=== PATIENT | male | born 1945 | race Caucasian/White ===

== ENCOUNTER 2020-04-08 08:03 | Outpatient (REF) | payer MEDICARE, SELFPAY ==
[2020-04-08 08:49] LABS: MANUAL DIFF FLAG NO
[2020-04-08 08:55] LABS: Basophils Percent Auto 0.4 % (0-2); Eosinophils Absolute Auto 0.3 X10*3/uL (0.0-0.4); Eosinophils Percent Auto 4.3 % (0-4); Hematocrit 43.8 % (42-52); Hemoglobin 14.5 g/dl (14.0-18.0); Imm Gran Abs Auto 0.02 X10*3/uL (0.00-0.03); Imm Gran Pct Auto 0.3 % (0.0-0.4); Lymphocytes Absolute Auto 1.8 X10*3/uL (1.2-4.9); Lymphocytes Percent Auto 24.8 % (20-40); Mean Corpuscular HGB Conc 33.1 g/dl (31.0-36.0); Mean Corpuscular Hemoglobin 31.2 pg (27.0-33.0); Mean Corpuscular Volume 94.2 fL (80-98); Mean Platelet Volume 10.4 fL (9.4-12.4); Monocytes Absolute Auto 0.5 X10*3/uL (0.1-1.2); Neutrophils Absolute Auto 4.6 X10*3/uL (2.0-8.3); Neutrophils Percent Auto 63.2 % (45-73); Platelet Count 198 X10*3/uL (160-400); Red Blood Count 4.65 X10*6/uL (4.60-5.80); Red Cell Distribution Width 13.9 % (11.0-16.0); White Blood Count 7.3 X10*3/uL (4.8-10.8)
[2020-04-08 09:26] LABS: Alanine Aminotransferase 37 U/L (0-40); Alkaline Phosphatase 63 U/L (39-117); Anion Gap 14 (12-20); Aspartate Amino Transferase 24 U/L (5-37); Bilirubin Total 1.2 mg/dL (0.0-1.0); Blood Urea Nitrogen 16 mg/dL (9-16); Calcium 8.5 mg/dL (8.4-10.2); Carbon Dioxide 21 mmol/L (22-29); Chloride 107 mmol/L (96-108); Cholesterol 119 mg/dL; Estimated Glomerular Filt Rate > 60; Glucose Fasting 96 mg/dL (60-99); HDL Cholesterol 44 mg/dL; LDL Cholesterol Calculated 57 mg/dl; Potassium 4.8 mmol/l (3.3-5.1); Sodium 137 mmol/L (135-145); Total Protein 7.1 g/dL (6.5-8.0); Triglycerides 91 mg/dL
[2020-04-08 09:40] LABS: TSH reflex Free T4 1.55 mIU/mL (0.32-4.0); Vitamin D 25-OH Total 32.6 ng/mL (>30)
[2020-04-08 10:04] LABS: Glucose Urine UA NEG (NEG); Leukocyte Esterase Urine NEG (NEG); Nitrite Urine NEG (NEG); Urine Blood TRACE (NEG); Urine Ketones NEG (NEG); Urine Protein NEG (NEG-TRACE)
[2020-04-08 10:06] LABS: Appearance Urine CLEAR; Color Urine YELLOW
[2020-04-08 10:18] LABS: RBC Urine 0-2 /HPF (0); WBC Urine 0 /HPF (0-4)
== END 2020-04-08 08:04 | disposition home or self-care (01) ==
LOC: HO.LAB 08:03
PROVIDERS: Visit Provider Internal Medicine
DX: E78.5 Hyperlipidemia, unspecified (principal); I10 Essential (primary) hypertension; I25.10 Atherosclerotic heart disease of native coronary artery without angina pectoris; N40.0 Benign prostatic hyperplasia without lower urinary tract symptoms; G47.33 Obstructive sleep apnea (adult) (pediatric); E55.9 Vitamin D deficiency, unspecified; E66.3 Overweight
CPT/HCPCS: 36415; 80053; 80061; 81001; 81003; 82306; 84153; 84443; 85025

== ENCOUNTER → 2020-06-12 10:15 | Outpatient (BNVA) | payer MEDICARE, SELFPAY | PROVIDERS: PCP Internal Medicine; Visit Provider Urology | DX: N40.1 Benign prostatic hyperplasia with lower urinary tract symptoms (principal); R39.15 Urgency of urination; R39.12 Poor urinary stream | CPT/HCPCS: 81002; 99202 ==

== ENCOUNTER 2020-06-26 10:48 | Outpatient (REF) | payer MEDICARE, SELFPAY ==
--- NOTE | 2020-06-26 10:55 | US_ITS ---
EXAMINATION: US PELVIS LIMITED (BLADDER) CLINICAL INFORMATION: Poor urinary stream. History of BPH. COMPARISON: None TECHNIQUE: Real-time imaging of the bladder. FINDINGS: The urinary bladder is distended to an estimated volume of 142 mL. No evidence of bladder diverticulum, mass or calculus. After voiding, small residual of 8 mL is present. Both ureteral jets are visualized. There appears to be borderline thickening of the bladder wall, with slightly trabeculated appearance of the bladder wall. The prostate gland is not optimally visualized. The prostate gland measurements might be inaccurate. The prostate gland has an estimated size of 3.5 x 3 x 4 cm. No pelvic free fluid. US/US bladder IMPRESSION: No significant postvoid bladder residual. After voiding, a small residual of 8 mL is identified. No bladder calculi.
== END 2020-06-26 10:49 | disposition home or self-care (01) ==
LOC: HO.US 10:48
PROVIDERS: Visit Provider Urology
DX: R39.12 Poor urinary stream (principal); N40.1 Benign prostatic hyperplasia with lower urinary tract symptoms
CPT/HCPCS: 76857

== ENCOUNTER → 2020-07-10 09:18 | Outpatient (BNVA) | payer MEDICARE, SELFPAY | PROVIDERS: Visit Provider Urology | DX: Z13.89 Encounter for screening for other disorder (principal) | CPT/HCPCS: Q3014 ==

== ENCOUNTER 2020-08-06 07:53 | Outpatient (REF) | payer MEDICARE, SELFPAY ==
[2020-08-06 08:51] LABS: MANUAL DIFF FLAG NO
[2020-08-06 08:55] LABS: Glucose Urine UA NEG (NEG); Leukocyte Esterase Urine NEG (NEG); Nitrite Urine NEG (NEG); Specific Gravity - Urine >= 1.030 (1.005-1.025); Urine Blood NEG (NEG); Urine Ketones NEG (NEG); Urine Protein NEG (NEG-TRACE)
[2020-08-06 08:55] LABS: Basophils Percent Auto 0.3 % (0-2); Eosinophils Absolute Auto 0.3 X10*3/uL (0.0-0.4); Hematocrit 41.1 % (42-52); Hemoglobin 13.6 g/dl (14.0-18.0); Imm Gran Abs Auto 0.02 X10*3/uL (0.00-0.03); Imm Gran Pct Auto 0.3 % (0.0-0.4); Lymphocytes Absolute Auto 1.4 X10*3/uL (1.2-4.9); Lymphocytes Percent Auto 21.7 % (20-40); Mean Corpuscular HGB Conc 33.1 g/dl (31.0-36.0); Mean Corpuscular Volume 93.6 fL (80-98); Mean Platelet Volume 10.1 fL (9.4-12.4); Monocytes Absolute Auto 0.6 X10*3/uL (0.1-1.2); Monocytes Percent Auto 8.5 % (2-11); Neutrophils Absolute Auto 4.2 X10*3/uL (2.0-8.3); Neutrophils Percent Auto 64.2 % (45-73); Platelet Count 184 X10*3/uL (160-400); Red Blood Count 4.39 X10*6/uL (4.60-5.80); Red Cell Distribution Width 14.5 % (11.0-16.0); White Blood Count 6.5 X10*3/uL (4.8-10.8)
[2020-08-06 08:57] LABS: Appearance Urine CLEAR; Color Urine YELLOW
[2020-08-06 09:26] LABS: Alanine Aminotransferase 38 U/L (0-40); Alkaline Phosphatase 67 U/L (39-117); Anion Gap 12 (12-20); Aspartate Amino Transferase 24 U/L (5-37); Bilirubin Total 1.2 mg/dL (0.0-1.0); Blood Urea Nitrogen 24 mg/dL (9-16); Calcium 8.7 mg/dL (8.4-10.2); Carbon Dioxide 22 mmol/L (22-29); Chloride 110 mmol/L (96-108); Cholesterol 108 mg/dL; Estimated Glomerular Filt Rate > 60; Glucose Fasting 111 mg/dL (60-99); HDL Cholesterol 46 mg/dL; LDL Cholesterol Calculated 51 mg/dl; Potassium 4.3 mmol/L (3.3-5.1); Sodium 140 mmol/L (135-145); Total Protein 6.4 g/dL (6.5-8.0); Triglycerides 55 mg/dL
[2020-08-06 09:50] LABS: Prostate Specific Antigen 1.34 ng/mL (<0.05-4.0); TSH reflex Free T4 1.19 uIU/mL (0.32-4.0); Vitamin D 25-OH Total 32.8 ng/mL (>30)
== END 2020-08-06 07:54 | disposition home or self-care (01) ==
LOC: HO.LAB 07:53
PROVIDERS: PCP Internal Medicine; Visit Provider Internal Medicine
DX: E78.00 Pure hypercholesterolemia, unspecified (principal); N40.1 Benign prostatic hyperplasia with lower urinary tract symptoms; I10 Essential (primary) hypertension; E66.3 Overweight; I25.10 Atherosclerotic heart disease of native coronary artery without angina pectoris; E55.9 Vitamin D deficiency, unspecified
CPT/HCPCS: 36415; 80053; 80061; 81003; 82306; 84153; 84443; 85025

== ENCOUNTER → 2020-10-08 08:53 | Outpatient (BNVA) | payer MEDICARE, SELFPAY | PROVIDERS: PCP Internal Medicine; Visit Provider Urology | DX: N40.1 Benign prostatic hyperplasia with lower urinary tract symptoms (principal); R39.15 Urgency of urination; R39.12 Poor urinary stream | CPT/HCPCS: 51798; 81002; 99212 ==

== ENCOUNTER 2021-04-02 08:27 | Outpatient (REF) | payer MEDICARE, SELFPAY ==
[2021-04-02 08:48] LABS: MANUAL DIFF FLAG NO
[2021-04-02 08:59] LABS: Basophils Percent Auto 0.5 % (0-2); Eosinophils Absolute Auto 0.2 X10*3/uL (0.0-0.4); Hematocrit 42.7 % (42.0-52.0); Hemoglobin 14.3 g/dl (14.0-18.0); Imm Gran Abs Auto 0.04 X10*3/uL (0.00-0.03); Imm Gran Pct Auto 0.5 % (0.0-0.4); Lymphocytes Absolute Auto 1.7 X10*3/uL (1.2-4.9); Mean Corpuscular HGB Conc 33.5 g/dl (31.0-36.0); Mean Corpuscular Hemoglobin 31.2 pg (27.0-33.0); Mean Corpuscular Volume 93.2 fL (80.0-98.0); Mean Platelet Volume 9.7 fL (9.4-12.4); Monocytes Absolute Auto 0.6 X10*3/uL (0.1-1.2); Neutrophils Absolute Auto 5.33 x10*3/uL (2.0-8.3); Platelet Count 231 X10*3/uL (160-400); Red Blood Count 4.58 X10*6/uL (4.60-5.80); Red Cell Distribution Width 14.1 % (11.0-16.0)
[2021-04-02 09:29] LABS: Alanine Aminotransferase 38 U/L (0-40); Albumin Level 4.2 g/dL (3.5-5.0); Alkaline Phosphatase 66 U/L (39-117); Anion Gap 11 (12-20); Aspartate Amino Transferase 24 U/L (5-37); Bilirubin Total 0.9 mg/dL (0.0-1.0); Blood Urea Nitrogen 17 mg/dL (9-16); Carbon Dioxide 23 mmol/L (22-29); Chloride 108 mmol/L (96-108); Cholesterol 119 mg/dL; Estimated Glomerular Filt Rate > 60; Glucose Fasting 107 mg/dL (60-99); HDL Cholesterol 41 mg/dL; LDL Cholesterol Calculated 68 mg/dl; Potassium 4.4 mmol/L (3.3-5.1); Sodium 138 mmol/L (135-145); Total Protein 6.8 g/dL (6.5-8.0); Triglycerides 54 mg/dL
[2021-04-02 10:13] LABS: Appearance Urine CLEAR; Color Urine YELLOW; Glucose Urine UA NEG (NEG); Leukocyte Esterase Urine NEG (NEG); Nitrite Urine NEG (NEG); Urine Blood NEG (NEG); Urine Ketones NEG (NEG); Urine Protein NEG (NEG-TRACE)
== END 2021-04-02 08:28 | disposition home or self-care (01) ==
LOC: HO.LAB 08:27
PROVIDERS: PCP Internal Medicine; Visit Provider Internal Medicine
DX: N40.1 Benign prostatic hyperplasia with lower urinary tract symptoms (principal); E78.00 Pure hypercholesterolemia, unspecified; I25.10 Atherosclerotic heart disease of native coronary artery without angina pectoris; E66.3 Overweight; E55.9 Vitamin D deficiency, unspecified; I10 Essential (primary) hypertension
CPT/HCPCS: 36415; 80053; 80061; 81003; 82306; 84443; 85025

== ENCOUNTER 2021-11-19 09:33 | Outpatient (REF) | payer MEDICARE, SELFPAY ==
[2021-11-19 09:55] LABS: MANUAL DIFF FLAG NO
[2021-11-19 10:16] LABS: Basophils Percent Auto 0.5 % (0-2); Eosinophils Absolute Auto 0.1 X10*3/uL (0.0-0.4); Eosinophils Percent Auto 1.3 % (0-4); Hematocrit 40.6 % (42.0-52.0); Hemoglobin 13.7 g/dl (14.0-18.0); Imm Gran Abs Auto 0.05 X10*3/uL (0.00-0.03); Imm Gran Pct Auto 0.6 % (0.0-0.4); Lymphocytes Absolute Auto 1.7 X10*3/uL (1.2-4.9); Mean Corpuscular HGB Conc 33.7 g/dl (31.0-36.0); Mean Corpuscular Hemoglobin 31.6 pg (27.0-33.0); Mean Corpuscular Volume 93.5 fL (80.0-98.0); Mean Platelet Volume 9.7 fL (9.4-12.4); Monocytes Absolute Auto 0.9 X10*3/uL (0.1-1.2); Monocytes Percent Auto 11.5 % (2-11); Neutrophils Absolute Auto 5.2 x10*3/uL (2.0-8.3); Neutrophils Percent Auto 65.1 % (45-73); Platelet Count 230 X10*3/uL (160-400); Red Blood Count 4.34 X10*6/uL (4.60-5.80); Red Cell Distribution Width 15.3 % (11.0-16.0); White Blood Count 7.9 X10*3/uL (4.8-10.8)
[2021-11-19 10:50] LABS: Alanine Aminotransferase 52 U/L (0-40); Albumin Level 4.2 g/dL (3.5-5.0); Alkaline Phosphatase 73 U/L (39-117); Anion Gap 13 (12-20); Aspartate Amino Transferase 32 U/L (5-37); Bilirubin Total 0.9 mg/dL (0.0-1.0); Blood Urea Nitrogen 28 mg/dL (9-16); Calcium 9.1 mg/dL (8.4-10.2); Carbon Dioxide 21 mmol/L (22-29); Chloride 107 mmol/L (96-108); Cholesterol 137 mg/dL; Estimated Glomerular Filt Rate > 60; Glucose Fasting 108 mg/dL (60-99); HDL Cholesterol 54 mg/dL; LDL Cholesterol Calculated 72 mg/dl; Potassium 4.5 mmol/L (3.3-5.1); Sodium 136 mmol/L (135-145); Total Protein 6.7 g/dL (6.5-8.0); Triglycerides 56 mg/dL
[2021-11-19 10:51] LABS: Appearance Urine CLEAR; Color Urine STRAW; Glucose Urine UA NEG (NEG); Leukocyte Esterase Urine NEG (NEG); Nitrite Urine NEG (NEG); UACC Culture Trigger NO; Urine Blood TRACE (NEG); Urine Ketones NEG (NEG); Urine Protein NEG (NEG-TRACE)
[2021-11-19 11:09] LABS: RBC Urine 0-2 /HPF (0); WBC Urine 0 /HPF (0-4)
[2021-11-19 11:16] LABS: TSH reflex Free T4 1.69 uIU/mL (0.32-4.0); Vitamin D 25-OH Total 35.1 ng/mL (>30)
== END 2021-11-19 09:34 | disposition home or self-care (01) ==
LOC: HO.LAB 09:33
PROVIDERS: PCP Internal Medicine; Visit Provider Internal Medicine
DX: E78.00 Pure hypercholesterolemia, unspecified (principal); I10 Essential (primary) hypertension; E55.9 Vitamin D deficiency, unspecified
CPT/HCPCS: 36415; 80053; 80061; 81001; 82306; 84443; 85025

== ENCOUNTER 2022-04-14 07:34 | Outpatient (REF) | payer MEDICARE, SELFPAY ==
[2022-04-14 07:53] LABS: MANUAL DIFF FLAG NO
[2022-04-14 08:19] LABS: Basophils Percent Auto 0.4 % (0-2); Eosinophils Absolute Auto 0.1 X10*3/uL (0.0-0.4); Eosinophils Percent Auto 1.6 % (0-4); Hematocrit 44.2 % (42.0-52.0); Hemoglobin 14.8 g/dl (14.0-18.0); Imm Gran Abs Auto 0.02 X10*3/uL (0.00-0.03); Imm Gran Pct Auto 0.2 % (0.0-0.4); Lymphocytes Absolute Auto 1.9 X10*3/uL (1.2-4.9); Lymphocytes Percent Auto 24.1 % (20-40); Mean Corpuscular HGB Conc 33.5 g/dl (31.0-36.0); Mean Corpuscular Volume 92.7 fL (80.0-98.0); Mean Platelet Volume 9.7 fL (9.4-12.4); Monocytes Absolute Auto 0.7 X10*3/uL (0.1-1.2); Monocytes Percent Auto 8.7 % (2-11); Neutrophils Absolute Auto 5.2 x10*3/uL (2.0-8.3); Platelet Count 231 X10*3/uL (160-400); Red Blood Count 4.77 X10*6/uL (4.60-5.80); Red Cell Distribution Width 13.9 % (11.0-16.0)
[2022-04-14 08:32] LABS: Appearance Urine Clear; Color Urine Yellow; Glucose Urine UA Negative (Negative); Leukocyte Esterase Urine Negative (Negative); Nitrite Urine Negative (Negative); Specific Gravity - Urine 1.015 (1.005-1.025); Urine Blood Negative (Negative); Urine Ketones Negative (Negative); Urine Protein Trace mg/dL (Neg-Trace)
[2022-04-14 08:48] LABS: Estimated Average Glucose 117 mg/dL; Hemoglobin A1c % 5.7 %
[2022-04-14 09:14] LABS: Alanine Aminotransferase 25 U/L (0-40); Albumin Level 4.1 g/dL (3.5-5.0); Alkaline Phosphatase 84 U/L (39-117); Anion Gap 16 (12-20); Aspartate Amino Transferase 18 U/L (5-37); Blood Urea Nitrogen 17 mg/dL (9-16); Carbon Dioxide 18 mmol/L (22-29); Chloride 111 mmol/L (96-108); Cholesterol 109 mg/dL; Estimated Glomerular Filt Rate > 60; Glucose Fasting 104 mg/dL (60-99); HDL Cholesterol 38 mg/dL; LDL Cholesterol Calculated 60 mg/dl; Potassium 5.6 mmol/L (3.3-5.1); Sodium 139 mmol/L (135-145); TSH reflex Free T4 2.84 uIU/mL (0.32-4.0); Total Protein 7.1 g/dL (6.5-8.0); Triglycerides 58 mg/dL; Vitamin D 25-OH Total 42.6 ng/mL (>30)
== END 2022-04-14 07:35 | disposition home or self-care (01) ==
LOC: HO.LAB 07:34
PROVIDERS: PCP Internal Medicine; Visit Provider Internal Medicine
DX: E78.00 Pure hypercholesterolemia, unspecified (principal); E55.9 Vitamin D deficiency, unspecified; I10 Essential (primary) hypertension; R73.01 Impaired fasting glucose
CPT/HCPCS: 36415; 80053; 80061; 81003; 82306; 83036; 84443; 85025

== ENCOUNTER 2022-09-04 08:07 | Outpatient (REF) | payer MEDICARE, SELFPAY ==
[2022-09-04 08:27] LABS: MANUAL DIFF FLAG NO
[2022-09-04 08:43] LABS: Basophils Absolute Auto 0.1 X10*3/uL (0.0-0.2); Basophils Percent Auto 0.7 % (0-2); Eosinophils Absolute Auto 0.3 X10*3/uL (0.0-0.4); Eosinophils Percent Auto 3.6 % (0-4); Hematocrit 42.5 % (42.0-52.0); Hemoglobin 14.2 g/dl (14.0-18.0); Imm Gran Abs Auto 0.04 X10*3/uL (0.00-0.03); Imm Gran Pct Auto 0.5 % (0.0-0.4); Lymphocytes Percent Auto 26.9 % (20-40); Mean Corpuscular HGB Conc 33.4 g/dl (31.0-36.0); Mean Corpuscular Hemoglobin 30.3 pg (27.0-33.0); Mean Corpuscular Volume 90.8 fL (80.0-98.0); Mean Platelet Volume 9.8 fL (9.4-12.4); Monocytes Absolute Auto 0.7 X10*3/uL (0.1-1.2); Monocytes Percent Auto 9.3 % (2-11); Neutrophils Absolute Auto 4.3 x10*3/uL (2.0-8.3); Platelet Count 194 X10*3/uL (160-400); Red Blood Count 4.68 X10*6/uL (4.60-5.80); Red Cell Distribution Width 14.8 % (11.0-16.0); White Blood Count 7.3 X10*3/uL (4.8-10.8)
[2022-09-04 09:40] LABS: Alanine Aminotransferase 43 U/L (0-40); Albumin Level 4.1 g/dL (3.5-5.0); Alkaline Phosphatase 97 U/L (39-117); Anion Gap 16 (12-20); Aspartate Amino Transferase 26 U/L (5-37); Bilirubin Total 0.8 mg/dL (0.0-1.0); Blood Urea Nitrogen 22 mg/dL (9-16); Calcium 8.9 mg/dL (8.4-10.2); Carbon Dioxide 17 mmol/L (22-29); Chloride 111 mmol/L (96-108); Cholesterol 120 mg/dL; Estimated Glomerular Filt Rate > 60; Glucose Fasting 104 mg/dL (60-99); HDL Cholesterol 38 mg/dL; LDL Cholesterol Calculated 67 mg/dl; Potassium 4.6 mmol/L (3.3-5.1); Sodium 139 mmol/L (135-145); Total Protein 6.5 g/dL (6.5-8.0); Triglycerides 75 mg/dL
[2022-09-04 09:44] LABS: Appearance Urine Clear; Color Urine Yellow; Glucose Urine UA Negative (Negative); Leukocyte Esterase Urine Negative (Negative); Nitrite Urine Negative (Negative); PH 5.5 (5.0-9.0); Specific Gravity - Urine 1.015 (1.005-1.025); Urine Blood Negative (Negative); Urine Ketones Negative (Negative); Urine Protein Trace mg/dL (Neg-Trace)
[2022-09-04 09:57] LABS: TSH reflex Free T4 2.54 uIU/mL (0.32-4.0); Vitamin D 25-OH Total 41.4 ng/mL (>30)
== END 2022-09-04 08:08 | disposition home or self-care (01) ==
LOC: HO.LAB 08:07
PROVIDERS: PCP Internal Medicine; Visit Provider Internal Medicine
DX: E78.00 Pure hypercholesterolemia, unspecified (principal); E55.9 Vitamin D deficiency, unspecified; R30.0 Dysuria; I10 Essential (primary) hypertension
CPT/HCPCS: 36415; 80053; 80061; 81003; 82306; 84443; 85025

== ENCOUNTER 2022-12-31 07:35 | Outpatient (REF) | payer MEDICARE, SELFPAY ==
[2022-12-31 07:52] LABS: MANUAL DIFF FLAG NO
[2022-12-31 08:06] LABS: Basophils Absolute Auto 0.1 X10*3/uL (0.0-0.2); Basophils Percent Auto 0.7 % (0-2); Eosinophils Absolute Auto 0.3 X10*3/uL (0.0-0.4); Eosinophils Percent Auto 4.3 % (0-4); Hematocrit 44.6 % (42.0-52.0); Hemoglobin 14.7 g/dl (14.0-18.0); Imm Gran Abs Auto 0.04 X10*3/uL (0.00-0.03); Imm Gran Pct Auto 0.6 % (0.0-0.4); Lymphocytes Absolute Auto 2.1 X10*3/uL (1.2-4.9); Lymphocytes Percent Auto 29.1 % (20-40); Mean Corpuscular Hemoglobin 31.1 pg (27.0-33.0); Mean Corpuscular Volume 94.3 fL (80.0-98.0); Monocytes Absolute Auto 0.6 X10*3/uL (0.1-1.2); Monocytes Percent Auto 9.1 % (2-11); Neutrophils Percent Auto 56.2 % (45-73); Platelet Count 196 X10*3/uL (160-400); Red Blood Count 4.73 X10*6/uL (4.60-5.80); Red Cell Distribution Width 14.3 % (11.0-16.0); White Blood Count 7.1 X10*3/uL (4.8-10.8)
[2022-12-31 08:19] LABS: Estimated Average Glucose 111 mg/dL; Hemoglobin A1C 138.5461 umol/L; Hemoglobin A1c % 5.5 %
[2022-12-31 09:47] LABS: Appearance Urine Clear; Color Urine Yellow; Glucose Urine UA Negative (Negative); Leukocyte Esterase Urine Negative (Negative); Nitrite Urine Negative (Negative); Urine Blood Negative (Negative); Urine Ketones Negative (Negative); Urine Protein Negative (Neg-Trace)
[2022-12-31 11:48] LABS: Alanine Aminotransferase 35 U/L (0-40); Alkaline Phosphatase 79 U/L (39-117); Anion Gap 13 (12-20); Aspartate Amino Transferase 21 U/L (5-37); Bilirubin Total 0.8 mg/dL (0.0-1.0); Blood Urea Nitrogen 14 mg/dL (9-16); Calcium 9.1 mg/dL (8.4-10.2); Carbon Dioxide 21 mmol/L (22-29); Chloride 109 mmol/L (96-108); Cholesterol 114 mg/dL; Estimated Glomerular Filt Rate > 60; Glucose Fasting 105 mg/dL (60-99); HDL Cholesterol 49 mg/dL; LDL Cholesterol Calculated 52 mg/dl; Potassium 4.3 mmol/L (3.3-5.1); Sodium 139 mmol/L (135-145); Total Protein 6.7 g/dL (6.5-8.0); Triglycerides 66 mg/dL
[2022-12-31 12:02] LABS: TSH reflex Free T4 2.52 uIU/mL (0.32-4.0); Vitamin D 25-OH Total 43.8 ng/mL (>30)
[2022-12-31 12:14] LABS: Folate 8.1 ng/mL (> or = 4.0); Vitamin B12 528 pg/mL (200-900)
== END 2022-12-31 07:36 | disposition home or self-care (01) ==
LOC: HO.LAB 07:35
PROVIDERS: PCP Internal Medicine; Visit Provider Internal Medicine
DX: I10 Essential (primary) hypertension (principal); E78.00 Pure hypercholesterolemia, unspecified; R74.01 Elevation of levels of liver transaminase levels; R30.0 Dysuria; E55.9 Vitamin D deficiency, unspecified; R73.01 Impaired fasting glucose; E53.8 Deficiency of other specified B group vitamins
CPT/HCPCS: 36415; 80053; 80061; 81003; 82306; 82607; 82746; 83036; 84443; 85025

== ENCOUNTER 2023-01-07 09:25 | Outpatient (AMB) | payer MEDICARE, SELFPAY ==
[2023-01-07 09:32] VITALS: BP 134/62; PULSE 52; O2SAT 98; BMI 25.1
--- NOTE | 2023-01-07 09:32 | MHC.PC.OV ---
Vital Signs 01/07/23 09:32 Height 5 ft 11 in Weight 180 lb BMI 25.1 BP 134/62 Blood Pressure Location Lt brachial Position Sitting Pulse 52 Pulse Source Pulse Oximeter Temp Source Skin Pulse Oximetry (%) 98 Oxygen Delivery Method Room Air Intake Visit Reasons: CAD, HTN, hyperlipidemia, IFG, DEEPAK, BPH Allergies Cephalosporins Allergy (Mild, Verified 01/07/23 10:05) Unknown cefazolin Allergy (Unknown, Verified 01/07/23 10:05) Unknown clindamycin Adverse Reaction (Intermediate, Verified 01/07/23 10:05) constipation,abdominal discomfort pneumococcal vaccine Adverse Reaction (Unknown, Verified 01/07/23 10:05) arm swelling Medication List - Last Reconciled 01/07/23 by Reg Laboy MD amlodipine 5 mg PO QAM aspirin 81 mg PO DAILY atorvastatin 80 mg PO DAILY betamethasone dipropionate 0.05% 1 ea topical BID PRN cholecalciferol (vitamin D3) 25 mcg PO DAILY lisinopril 40 mg PO DAILY Tobacco use date assessed: 01/07/23 Fall risk assessment: No Falls in past year Last assessed Fall Risk: 01/07/23 Dental Screening Dental Screen Date: 01/07/23 Did you have a dental visit in the last 12 months?: Yes Did you have a dental problem in the last 6 months where you did not have access to dental care?: No Was dental information given to patient?: Patient has dentist HPI CAD, HTN, hyperlipidemia, IFG, DEEPAK, BPH HPI Details Patient comes in today for his follow up visit States that he feels okay He denies any headaches or dizziness Denies any chest pains, no SOB No nausea/vomiting, no abdominal pain No change in bowel habits noted Had his follow up labs done last week - to discuss his results [facility] Medical History Asthma Benign essential hypertension Benign prostatic hyperplasia with lower urinary tract symptoms Coronary artery disease Obstructive sleep apnea Overweight (BMI 25.0-29.9) Pure hypercholesterolemia Vitamin D deficiency Surgical History History of inguinal hernia repair History of open heart surgery History of tonsillectomy Family History Father Cancer Mother Cancer Other Alcohol abuse Social History Housing: House Alcohol intake: current Alcohol intake frequency: 3 or more drinks per day Alcohol type: beer Patient Tobacco Use Status: Former Tobacco user Second Hand Smoke Exposure: Yes service: No Current occupational status: retired Cognitive needs: No Hearing needs: No Vision needs: Yes Questionnaire Thrive Questionnaire Date Thrive assessed: 09/07/22 RAMEZ-7 AMB Questionnaire RAMEZ-7 Date RAMEZ - 7 assessed: 09/07/22 Source: Developed by Drs. Ruy Hernandez, Ximena Mcgowan, Polo Nielsen and colleagues, with an educational javier from [employer]. Review of Systems Const Denies fatigue, Denies fever(s) and Denies headache(s) ENT Denies dysphagia, Denies dizziness, Denies otalgia, Denies headache(s) and Denies sore throat Card Denies chest pain, Denies palpitations and Denies dyspnea Resp Denies cough and Denies dyspnea GI Denies abdominal pain, Denies constipation, Denies dysphagia, Denies heartburn, Denies diarrhea, Denies nausea and Denies vomiting Reports difficulty urinating (at times), Denies dysuria, Denies nocturia and Reports urinary frequency Musc Reports arthralgias (left shoulder) Neuro Denies dizziness and Denies headache(s) Endo Denies fatigue and Denies palpitations Physical exam (Primary Care) Vital Signs: Last Vital Signs Pulse 52 01/07/23 09:32 BP 134/62 01/07/23 09:32 Pulse Ox 98 01/07/23 09:32 Oxygen Delivery Method Room Air 01/07/23 09:32 BMI result Body Mass Index 25.1 Tobacco/Smoking Status: Tobacco use Status Tobacco use date assessed 01/07/23 01/07/23 09:34 Patient Tobacco Use Status Former Tobacco user 01/07/23 09:34 Thrive Assessment: Date of Thrive Assessment Date Thrive assessed 09/07/22 08 09:34 Const General: no acute distress and alert HENMT Ears: TM's normal bilaterally and EAC's normal Throat: Yes posterior oropharynx normal and Yes tonsils normal (no TP congestion noted) Neck Neck: Yes no lymphadenopathy and Yes supple Resp Auscultation: clear to auscultation bilaterally, no rales and no wheezes Cardio Rate: regular rate Rhythm: regular rhythm Heart sounds: no murmurs GI Palpation (GI): Soft to palpation and nontender Auscultation: normal bowel sounds Extrem General: Yes no clubbing, cyanosis or edema Results Reviewed Results Reviewed: Laboratory Tests 12/31/22 12/31/22 12/31/22 07:50 07:51 07:51 WBC 7.1 Hgb 14.7 Hct 44.6 Plt Count 196 Sodium 139 Potassium 4.3 Creatinine 1.03 Estimated GFR > 60 Fasting Glucose 105 H Hemoglobin A1c % Calcium 9.1 AST 21 ALT 35 Triglycerides 66 Cholesterol 114 LDL Cholesterol, Calc 52 HDL Cholesterol 49 Vitamin B12 25-OH Vitamin D Total 43.8 TSH 2.52 Ur Specific Success 1.010 Urine Protein Negative Urine Glucose (UA) Negative Urine Blood Negative 12/31/22 12/31/22 07:51 07:51 WBC Hgb Hct Plt Count Sodium Potassium Creatinine Estimated GFR Fasting Glucose Hemoglobin A1c % 5.5 Calcium AST ALT Triglycerides Cholesterol LDL Cholesterol, Calc HDL Cholesterol Vitamin B12 528 25-OH Vitamin D Total TSH Ur Specific Success Urine Protein Urine Glucose (UA) Urine Blood Assessment and Plan Assessment & Plan (1) Pure hypercholesterolemia: Code(s): E78.00 - Pure hypercholesterolemia, unspecified Plan: Results of his labs done last week reviewed and discussed with patient Reinforced low cholesterol diet Continue Atorvastatin 80 mg QD Will recheck labs in 4 months for follow-up (2) Coronary artery disease: Comment: S/P quadruple bypass surgery back in August 2016 (had three-vessel coronary disease with 50% stenosis in the distal left main, 99% ostial circumflex with TIMI2 flow due to left to left and right to left collaterals, 70% stenosis in the mid LAD, 70% stenosis in the mid RCA and 80% stenosis in the PDA seen on cardiac catheterization in 2016) - patient completed cardiac rehab with significant functional improvement Code(s): I25.10 - Atherosclerotic heart disease of [place] coronary artery without angina pectoris Qualifiers: Associated angina: without angina Coronary Disease-Associated Artery/Lesion type: [place] artery [place] vs. transplanted heart: [place] heart Qualified Code(s): I25.10 - Atherosclerotic heart disease of [place] coronary artery without angina pectoris Plan: Patient remains asymptomatic from cardiac standpoint Continue low-dose Aspirin 81 mg QD Follow-up with cardiology as scheduled (3) Benign essential hypertension: Code(s): I10 - Essential (primary) hypertension Plan: Reinforced low-sodium diet - goal is systolic BP of at least 140 to 150 mm or less Continue Lisinopril 40 mg QD and Amlodipine 5 mg QD (4) Asthma: Code(s): J45.909 - Unspecified asthma, uncomplicated Qualifiers: Asthma complication type: uncomplicated Asthma persistence: intermittent Asthma severity: mild Qualified Code(s): J45.20 - Mild intermittent asthma, uncomplicated Plan: Stable - patient states that he has not had to use any of his inhalers for the past few years (5) Obstructive sleep apnea: Code(s): G47.33 - Obstructive sleep apnea (adult) (pediatric) Plan: Continue using his CPAP device when sleeping at night - states that he is doing very well on his CPAP with no acute issues As it has been a few years now since he's had a sleep study done, advised that it may be prudent to get his sleep apnea reassessed and that we can now refer him to a sleep specialist here locally for his convenience Patient would still like to hold off on this for now; states that he will call for a referral when he feels he is ready to get his sleep apnea rechecked (6) Elevated alanine aminotransferase (ALT) level: Code(s): R74.01 - Elevation of levels of liver transaminase levels Plan: Patient's ALT and AST are now normal on his recent labs Was most likely due to the effects of alcohol, as he admits to drinking light beer often and regularly Will continue to monitor his LFTs regularly (7) Impaired fasting glucose: Code(s): R73.01 - Impaired fasting glucose Plan: FBS is again slightly elevated at 105 mg/dl on his recent labs but his HgbA1c remains normal at 5.5% Reinforced low calorie diet (8) Vitamin D deficiency: Code(s): E55.9 - Vitamin D deficiency, unspecified Plan: Corrected - continue Vitamin D3 1000 units QD (9) Dermatitis: Code(s): L30.9 - Dermatitis, unspecified Plan: Continue Betamethasone Dipropionate 0.05% apply BID PRN (10) Benign prostatic hyperplasia with lower urinary tract symptoms: Code(s): N40.1 - Benign prostatic hyperplasia with lower urinary tract symptoms Qualifiers: Lower urinary tract symptom detail: unspecified Qualified Code(s): N40.1 - Benign prostatic hyperplasia with lower urinary tract symptoms Plan: Follow up with urology (Dr. Rose) as scheduled Patient stopped taking his previous Rx (Terazosin and Finasteride) as he felt that they were not really helping much - notes that his symptoms have not gotten any worse since stopping his meds (11) Overweight (BMI 25.0-29.9): Code(s): E66.3 - Overweight Plan: Reinforced diet/exercise as tolerated/lose weight Plan Follow up in 4 months Orders: Orders Comprehensive [place]. Panel Fast 4 Months E78.00 - Pure hypercholesterolemia, unspecified Lipid Panel 4 Months E78.00 - Pure hypercholesterolemia, unspecified TSH reflex Free T4 4 Months E78.00 - Pure hypercholesterolemia, unspecified Vitamin D 25-OH Total 4 Months E55.9 - Vitamin D deficiency, unspecified Complete Blood Count Auto Diff 4 Months I10 - Essential (primary) hypertension UA CC w/rflx Micro + Cult 4 Months R30.0 - Dysuria Coding Level of Care Code Est Pt Level 4 (91007) Diagnoses Pure hypercholesterolemia E78.00 Coronary artery disease I25.10 Associated angina: without angina Coronary Disease-Associated Artery/Lesion type: [place] artery [place] vs. transplanted heart: [place] heart Benign essential hypertension I10 Asthma J45.20 Asthma complication type: uncomplicated Asthma persistence: intermittent Asthma severity: mild Obstructive sleep apnea G47.33 Elevated alanine aminotransferase (ALT) level R74.01 Impaired fasting glucose R73.01 Vitamin D deficiency E55.9 Dermatitis L30.9 Benign prostatic hyperplasia with lower urinary tract symptoms N40.1 Lower urinary tract symptom detail: unspecified Overweight (BMI 25.0-29.9) E66.3
== END 2023-01-07 10:20 | disposition home or self-care (01) ==
PROVIDERS: Visit Provider Internal Medicine
DX: I10 Essential (primary) hypertension (principal); J45.20 Mild intermittent asthma, uncomplicated; E55.9 Vitamin D deficiency, unspecified; G47.33 Obstructive sleep apnea (adult) (pediatric); E78.00 Pure hypercholesterolemia, unspecified; I25.10 Atherosclerotic heart disease of native coronary artery without angina pectoris; R74.01 Elevation of levels of liver transaminase levels; R73.01 Impaired fasting glucose; L30.9 Dermatitis, unspecified; N40.1 Benign prostatic hyperplasia with lower urinary tract symptoms; E66.3 Overweight
CPT/HCPCS: 99214

== ENCOUNTER 2023-05-17 09:25 | Outpatient (AMB) | payer MEDICARE, SELFPAY ==
[2023-05-17 09:33] VITALS: BP 130/74; PULSE 55; O2SAT 95; BMI 25.5
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
== END 2023-05-17 10:04 | disposition home or self-care (01) ==
PROVIDERS: PCP Internal Medicine; Visit Provider Internal Medicine
DX: I25.10 Atherosclerotic heart disease of native coronary artery without angina pectoris (principal); E78.00 Pure hypercholesterolemia, unspecified; I10 Essential (primary) hypertension; J45.20 Mild intermittent asthma, uncomplicated; G47.33 Obstructive sleep apnea (adult) (pediatric); R74.01 Elevation of levels of liver transaminase levels; R73.01 Impaired fasting glucose; E55.9 Vitamin D deficiency, unspecified; L30.9 Dermatitis, unspecified; N40.1 Benign prostatic hyperplasia with lower urinary tract symptoms; E66.3 Overweight; Z23 Encounter for immunization
CPT/HCPCS: 90471; 90686; 99214

== ENCOUNTER 2023-09-10 07:55 | Outpatient (REF) | payer MEDICARE, SELFPAY ==
[2023-09-10 08:13] LABS: MANUAL DIFF FLAG NO
[2023-09-10 08:23] LABS: Basophils Percent Auto 0.5 % (0-2); Eosinophils Absolute Auto 0.2 X10*3/uL (0.0-0.4); Eosinophils Percent Auto 3.5 % (0-4); Hematocrit 41.8 % (42.0-52.0); Hemoglobin 14.2 g/dl (14.0-18.0); Imm Gran Abs Auto 0.01 X10*3/uL (0.00-0.03); Imm Gran Pct Auto 0.2 % (0.0-0.4); Lymphocytes Absolute Auto 1.7 X10*3/uL (1.2-4.9); Lymphocytes Percent Auto 26.2 % (20-40); Mean Corpuscular Hemoglobin 31.1 pg (27.0-33.0); Mean Corpuscular Volume 91.5 fL (80.0-98.0); Monocytes Absolute Auto 0.6 X10*3/uL (0.1-1.2); Monocytes Percent Auto 9.5 % (2-11); Neutrophils Percent Auto 60.1 % (45-73); Platelet Count 178 X10*3/uL (160-400); Red Blood Count 4.57 X10*6/uL (4.60-5.80); Red Cell Distribution Width 14.7 % (11.0-16.0); White Blood Count 6.6 X10*3/uL (4.8-10.8)
[2023-09-10 09:32] LABS: Appearance Urine Clear; Color Urine Yellow; Glucose Urine UA Negative (Negative); Leukocyte Esterase Urine Negative (Negative); Nitrite Urine Negative (Negative); PH 5.5 (5.0-9.0); Specific Gravity - Urine 1.015 (1.005-1.025); Urine Blood Negative (Negative); Urine Ketones Negative (Negative); Urine Protein Trace mg/dL (Neg-Trace)
[2023-09-10 09:41] LABS: Alanine Aminotransferase 24 U/L (0-40); Alkaline Phosphatase 85 U/L (39-117); Anion Gap 11 (12-20); Aspartate Amino Transferase 19 U/L (5-37); Bilirubin Total 0.7 mg/dL (0.0-1.0); Blood Urea Nitrogen 29 mg/dL (9-16); Calcium 9.2 mg/dL (8.4-10.2); Carbon Dioxide 20 mmol/L (22-29); Chloride 113 mmol/L (96-108); Cholesterol 104 mg/dL (<200); Estimated Glomerular Filt Rate 58; Glucose Fasting 99 mg/dL (60-99); HDL Cholesterol 43 mg/dL (>40); LDL Cholesterol Calculated 50 mg/dL (<100); Potassium 4.3 mmol/L (3.3-5.1); Sodium 140 mmol/L (135-145); Total Protein 6.9 g/dL (6.5-8.0); Triglycerides 58 mg/dL (<150)
[2023-09-10 10:09] LABS: TSH reflex Free T4 2.75 uIU/mL (0.32-4.0); Vitamin D 25-OH Total 37.4 ng/mL (>30)
== END 2023-09-10 07:56 | disposition home or self-care (01) ==
LOC: HO.LAB 07:55
PROVIDERS: PCP Internal Medicine; Visit Provider Internal Medicine
DX: R30.0 Dysuria (principal); E55.9 Vitamin D deficiency, unspecified; E78.00 Pure hypercholesterolemia, unspecified; I10 Essential (primary) hypertension
CPT/HCPCS: 36415; 80053; 80061; 81003; 82306; 84443; 85025

== ENCOUNTER 2023-09-16 09:47 | Outpatient (AMB) | payer MEDICARE, SELFPAY ==
--- NOTE | 2023-09-16 10:11 | MHC.PC.OV ---
Vital Signs 09/16/23 10:12 09/16/23 10:49 Height 5 ft 11 in Weight 185 lb 6 oz BMI 25.9 BP 120/54 L 130/60 Blood Pressure Location Lt brachial Lt brachial Position Sitting Sitting Pulse 62 Pulse Source Pulse Oximeter Pulse Oximetry (%) 95 Oxygen Delivery Method Room Air Intake Visit Reasons: hyperlipidemia, CAD, HTN Abap Developer Required: No Accompanied by: Self / Same As Patient Allergies Cephalosporins Allergy (Mild, Verified 09/16/23 10:44) Unknown cefazolin Allergy (Unknown, Verified 09/16/23 10:44) Unknown clindamycin Adverse Reaction (Intermediate, Verified 09/16/23 10:44) constipation,abdominal discomfort pneumococcal vaccine Adverse Reaction (Unknown, Verified 09/16/23 10:44) arm swelling Medication List - Last Reconciled 09/16/23 by Reg Laboy MD amlodipine 5 mg PO QAM aspirin 81 mg PO DAILY atorvastatin 80 mg PO DAILY betamethasone dipropionate 0.05% 1 ea topical BID PRN cholecalciferol (vitamin D3) 25 mcg PO DAILY [CPAP device As directed] lisinopril 40 mg PO DAILY Tobacco use date assessed: 09/16/23 Fall risk assessment: No Falls in past year Last assessed Fall Risk: 09/16/23 Dental Screening Dental Screen Date: 09/16/23 Did you have a dental visit in the last 12 months?: Yes Did you have a dental problem in the last 6 months where you did not have access to dental care?: No Was dental information given to patient?: Patient has dentist HPI hyperlipidemia, CAD, HTN HPI Details Patient comes in today for his follow-up visit States that he feels okay He denies any headaches or dizziness Denies any chest pains, no shortness of breath No nausea/vomiting, no abdominal pain No change in bowel habits noted Had his follow-up labs done last week - to discuss his results [facility] Medical History Overweight (BMI 25.0-29.9) Benign prostatic hyperplasia with lower urinary tract symptoms Obstructive sleep apnea Vitamin D deficiency Asthma Pure hypercholesterolemia Benign essential hypertension Coronary artery disease Surgical History History of open heart surgery History of inguinal hernia repair History of tonsillectomy Family History Father Cancer Mother Cancer Other Alcohol abuse Social History Housing: House Alcohol intake: current Alcohol intake frequency: 3 or more drinks per day Alcohol type: beer Patient Tobacco Use Status: Former Tobacco user e-Cigarette/Vaping Use: Never Used Second Hand Smoke Exposure: Yes service: No Current occupational status: retired Cognitive needs: No Hearing needs: No Vision needs: Yes Questionnaire PHQ-9 Over the last 2 weeks, how often have you been bothered by any of the following problems? 1. Little interest or pleasure in doing things: not at all 2. Feeling down, depressed, or hopeless: not at all 3. Trouble falling or staying asleep, or sleeping too much: not at all 4. Feeling tired or having little energy: not at all 5. Poor appetite or overeating: not at all 6. Feeling bad about yourself - or that you are a failure or have let yourself or your family down: not at all 7. Trouble concentrating on things, such as reading the newspaper or watching television: not at all 8. Moving or speaking so slowly that other people could have noticed. Or the opposite - being so fidgety or restless that you have been moving around a lot more than usual: not at all 9. Thoughts that you would be better off or of hurting yourself in some way: not at all Total score: 0 Depression Screening Interpretation: Negative Depression Screening Done: Yes 47581 - PHQ-9 Billing: Yes Source: Developed by Drs. Ruy Hernandez, Ximena Mcgowan, Polo Nielsen and colleagues, with an educational javier from [employer]. Thrive Questionnaire Date Thrive assessed: 09/16/23 I am a: Patient What is your living situation today?: I have a steady place to live Within the past 12 months, did the food you bought not last and you didn't have the money to get more?: Never true Within the past 12 months, did you worry whether your food would run out before you got money to buy more?: Never true Do you have trouble paying for medicines?: No Do you have trouble getting transportation to medical appointments?: No Do you have trouble paying your heating and electricity bill?: No Do you have trouble taking care of your child, family member or friend?: No Do you have trouble with day-to-day activities such as bathing, preparing meals, shopping, managing finances, etc.?: No Are you currently unemployed and looking for a job?: No Are you interested in more education?: No Please select the resources that you would like help with: None Currently or been in a relationship where the following occur: no concerns reported THRIVE Score: 0 AUDIT C Alcohol Use Questionnaire (AUDIT-C) 1. How often do you have a drink containing alcohol?: 4 or more times a week 2. How many drinks containing alcohol do you have on a typical day when you are drinking?: 3 or 4 (drinks about 4 light beers ([place] Light) a day) 3. How often do you have six or more drinks on one occasion?: Less than monthly Total Score: 6 Score Reviewed/Action Taken: Yes (has been advised to cut back - patient states he drinks only light beer now) RMAEZ-7 AMB Questionnaire RAMEZ-7 Date RAMEZ - 7 assessed: 09/16/23 Feeling nervous, anxious, or on edge: 0 = Not at all Not being able to stop or control worryin = Not at all Worrying too much about different things: 0 = Not at all Trouble relaxin = Not at all Being so restless that it is hard to sit still: 0 = Not at all Becoming easily annoyed or irritable: 0 = Not at all Feeling afraid as if something awful might happen: 0 = Not at all Total RAMEZ-7 score (0-4 normal; 5-9 mild; 10-14 moderate; 15-21 severe): 0 Source: Developed by Drs. Ruy Hernandez, Ximena Mcgowan, Polo Nielsen and colleagues, with an educational javier from [employer]. RAMEZ-7 Assessment Billing RAMEZ-7 Assessment Tool: RAMEZ-7 Assessment 10291 Review of Systems Const Denies chills, Denies fatigue, Denies fever(s) and Denies headache(s) ENT Denies dysphagia, Denies dizziness, Denies otalgia, Denies headache(s), Denies neck pain, Denies odynophagia and Denies sore throat Card Denies chest pain, Denies palpitations and Denies dyspnea Resp Denies cough and Denies dyspnea GI Denies abdominal pain, Denies constipation, Denies dysphagia, Denies heartburn, Denies diarrhea, Denies nausea, Denies odynophagia and Denies vomiting Reports difficulty urinating (at times), Denies dysuria, Denies nocturia and Reports urinary frequency Musc Denies back pain, Reports arthralgias (left shoulder) and Denies neck pain Skin/Breast Denies rash Neuro Denies dizziness and Denies headache(s) Endo Denies fatigue and Denies palpitations Physical exam (Primary Care) Vital Signs: Last Vital Signs Pulse 62 09/16/23 10:12 BP 130/60 09/16/23 10:49 Pulse Ox 95 09/16/23 10:12 Oxygen Delivery Method Room Air 09/16/23 10:12 BMI result Body Mass Index 25.9 Tobacco/Smoking Status: Tobacco use Status Tobacco use date assessed 09/16/23 09/16/23 10:26 Patient Tobacco Use Status Former Tobacco user 09/16/23 10:11 e-Cigarette/Vaping Use Never Used 09/16/23 10:11 PHQ-9: PHQ-9 Score PHQ-9: Total score 0 09/16/23 10:55 Depression Screening Interpretation: Negative Thrive Assessment: Date of Thrive Assessment Date Thrive assessed 09/16/23 09/16/23 10:26 Currently or been in a relationship where the following occur: no concerns reported Const General: no acute distress and alert HENMT Ears: TM's normal bilaterally and EAC's normal Throat: Yes posterior oropharynx normal and Yes tonsils normal (no TP congestion noted) Neck Neck: Yes no lymphadenopathy and Yes supple Thyroid: Thyroid normal Resp Auscultation: clear to auscultation bilaterally, no rales and no wheezes Cardio Rate: regular rate Rhythm: regular rhythm Heart sounds: no murmurs GI Palpation (GI): Soft to palpation and nontender Auscultation: normal bowel sounds General: Yes no CVA tenderness Back/Spine/Pelvis Back: no CVA tenderness Skin Rashes: no rashes Extrem General: Yes no clubbing, cyanosis or edema Results Reviewed Results Reviewed: Laboratory Tests 04/12/24 04/12/24 08:11 08:12 WBC 6.6 Hgb 14.2 Hct 41.8 L Plt Count 178 Sodium 140 Potassium 4.3 Creatinine 1.20 Estimated GFR 58 Fasting Glucose 99 Calcium 9.2 AST 19 ALT 24 Triglycerides 58 Cholesterol 104 LDL Cholesterol, Calc 50 HDL Cholesterol 43 25-OH Vitamin D Total 37.4 TSH 2.75 Ur Specific [place] 1.015 Urine Protein Trace Urine Glucose (UA) Negative Urine Blood Negative Urine Nitrite Negative Ur Leukocyte Esterase Negative Assessment and Plan Assessment & Plan (1) Coronary artery disease: Comment: S/P quadruple bypass surgery back in August 2016 (had three-vessel coronary disease with 50% stenosis in the distal left main, 99% ostial circumflex with TIMI2 flow due to left to left and right to left collaterals, 70% stenosis in the mid LAD, 70% stenosis in the mid RCA and 80% stenosis in the PDA seen on cardiac catheterization in 2015) - patient completed cardiac rehab with significant functional improvement Code(s): I25.10 - Atherosclerotic heart disease of [place] coronary artery without angina pectoris Qualifiers: Associated angina: without angina Coronary Disease-Associated Artery/Lesion type: [place] artery [place] vs. transplanted heart: [place] heart Qualified Code(s): I25.10 - Atherosclerotic heart disease of [place] coronary artery without angina pectoris Plan: Patient remains asymptomatic from a cardiac standpoint Continue low-dose Aspirin 81 mg QD Follow up with cardiology as scheduled (2) Pure hypercholesterolemia: Code(s): E78.00 - Pure hypercholesterolemia, unspecified Plan: Results of his labs done last week reviewed and discussed with patient Reinforced low cholesterol diet Continue Atorvastatin 80 mg QD Will recheck his labs and fasting lipids in 4 months for follow-up (3) Benign essential hypertension: Code(s): I10 - Essential (primary) hypertension Plan: Reinforced low-sodium diet - goal is systolic BP of at least 140 to 150 mm or less Continue Lisinopril 40 mg QD and Amlodipine 5 mg QD (4) Asthma: Code(s): J45.909 - Unspecified asthma, uncomplicated Qualifiers: Asthma complication type: uncomplicated Asthma persistence: intermittent Asthma severity: mild Qualified Code(s): J45.20 - Mild intermittent asthma, uncomplicated Plan: Stable - patient states that he has not had to use any of his inhalers for the past few years (5) Obstructive sleep apnea: Code(s): G47.33 - Obstructive sleep apnea (adult) (pediatric) Plan: Continue using his CPAP device when sleeping at night - states that he is doing very well on his CPAP with no acute issues As it has been a few years now since he's had a sleep study done, have previously advised him that it may be prudent to get his sleep apnea reassessed and that we can now refer him to a sleep specialist here locally for his convenience Patient would still like to hold off on this for now; states that he will call for a referral when he feels he is ready to get his sleep apnea rechecked (6) Elevated alanine aminotransferase (ALT) level: Code(s): R74.01 - Elevation of levels of liver transaminase levels Plan: Patient's ALT and AST have returned to normal and have remained normal on his recent labs Were most likely due to the effects of alcohol, as he admitted to drinking light beer often and regularly Will continue to monitor his LFTs regularly (7) Impaired fasting glucose: Code(s): R73.01 - Impaired fasting glucose Plan: FBS was normal at 99 mg/dl on his labs done last week; HgbA1c was normal at 5.5% when previously checked Reinforced low calorie diet (8) Vitamin D deficiency: Code(s): E55.9 - Vitamin D deficiency, unspecified Plan: Continue Vitamin D3 1000 units QD (9) Dermatitis: Code(s): L30.9 - Dermatitis, unspecified Plan: Continue Betamethasone Dipropionate 0.05% apply BID PRN (10) Benign prostatic hyperplasia with lower urinary tract symptoms: Code(s): N40.1 - Benign prostatic hyperplasia with lower urinary tract symptoms Qualifiers: Lower urinary tract symptom detail: unspecified Qualified Code(s): N40.1 - Benign prostatic hyperplasia with lower urinary tract symptoms Plan: Follow up with urology (Dr. Rose) as scheduled Patient stopped taking his previous Rx (Terazosin and Finasteride) as he felt that they were not really helping much - notes that his symptoms have not gotten any worse since stopping his meds (11) Overweight (BMI 25.0-29.9): Code(s): E66.3 - Overweight Plan: Reinforced diet/exercise as tolerated/lose weight Plan Follow up in 4 months Orders: Orders Complete Blood Count Auto Diff 4 Months D64.9 - Anemia, unspecified Lipid Panel 4 Months E78.00 - Pure hypercholesterolemia, unspecified UA CC w/rflx Micro + Cult 4 Months R30.0 - Dysuria Vitamin B12 and Folate 4 Months E53.8 - Deficiency of other specified B group vitamins Vitamin D 25-OH Total 4 Months E55.9 - Vitamin D deficiency, unspecified Comprehensive [place]. Panel Fast 4 Months E78.00 - Pure hypercholesterolemia, unspecified TSH reflex Free T4 4 Months E78.00 - Pure hypercholesterolemia, unspecified Coding Level of Care Code Est Pt Level 4 (20845) Diagnoses Coronary artery disease involving [place] coronary artery of [place] heart without angina pectoris I25.10 Associated angina: without angina Coronary Disease-Associated Artery/Lesion type: [place] artery [place] vs. transplanted heart: [place] heart Pure hypercholesterolemia E78.00 Benign essential hypertension I10 Mild intermittent asthma without complication J45.20 Asthma complication type: uncomplicated Asthma persistence: intermittent Asthma severity: mild Obstructive sleep apnea G47.33 Elevated alanine aminotransferase (ALT) level R74.01 Impaired fasting glucose R73.01 Vitamin D deficiency E55.9 Dermatitis L30.9 Benign prostatic hyperplasia with lower urinary tract symptoms, symptom details unspecified N40.1 Lower urinary tract symptom detail: unspecified Overweight (BMI 25.0-29.9) E66.3 Additional Codes RAMEZ-7 Assessment Billing - RAMEZ-7 Assessment Tool: RAMEZ-7 Assessment 45589 ([id number])
[2023-09-16 10:12] VITALS: BP 120/54; PULSE 62; O2SAT 95; BMI 25.9
[2023-09-16 10:49] VITALS: BP 130/60
== END 2023-09-16 11:00 | disposition home or self-care (01) ==
PROVIDERS: PCP Internal Medicine; Visit Provider Internal Medicine
DX: I25.10 Atherosclerotic heart disease of native coronary artery without angina pectoris (principal); E78.00 Pure hypercholesterolemia, unspecified; I10 Essential (primary) hypertension; J45.20 Mild intermittent asthma, uncomplicated; G47.33 Obstructive sleep apnea (adult) (pediatric); R74.01 Elevation of levels of liver transaminase levels; R73.01 Impaired fasting glucose; E55.9 Vitamin D deficiency, unspecified; L30.9 Dermatitis, unspecified; N40.1 Benign prostatic hyperplasia with lower urinary tract symptoms; E66.3 Overweight
CPT/HCPCS: 99214

== ENCOUNTER 2024-02-09 08:11 | Outpatient (REF) | payer MEDICARE, SELFPAY ==
[2024-02-09 08:27] LABS: MANUAL DIFF FLAG NO
[2024-02-09 09:52] LABS: Alanine Aminotransferase 32 U/L (0-40); Albumin Level 4.2 g/dL (3.5-5.0); Alkaline Phosphatase 89 U/L (39-117); Anion Gap 11 (12-20); Aspartate Amino Transferase 22 U/L (5-37); Bilirubin Total 0.7 mg/dL (0.0-1.0); Blood Urea Nitrogen 23 mg/dL (9-16); Calcium 9.6 mg/dL (8.4-10.2); Carbon Dioxide 22 mmol/L (22-29); Chloride 114 mmol/L (96-108); Cholesterol 115 mg/dL (<200); Estimated Glomerular Filt Rate 60; Glucose Fasting 86 mg/dL (60-99); HDL Cholesterol 43 mg/dL (>40); LDL Cholesterol Calculated 59 mg/dL (<100); Potassium 4.3 mmol/L (3.3-5.1); Sodium 143 mmol/L (135-145); Triglycerides 66 mg/dL (<150)
[2024-02-09 10:10] LABS: TSH reflex Free T4 1.98 uIU/mL (0.32-4.0); Vitamin D 25-OH Total 42.7 ng/mL (>30)
[2024-02-09 10:13] LABS: Folate 7.9 ng/mL (> or = 4.0); Vitamin B12 474 pg/mL (200-900)
[2024-02-09 11:35] LABS: Appearance Urine Clear; Color Urine Yellow; Glucose Urine UA Negative (Negative); Leukocyte Esterase Urine Negative (Negative); Nitrite Urine Negative (Negative); PH 5.5 (5.0-9.0); Specific Gravity - Urine 1.015 (1.005-1.025); Urine Blood Negative (Negative); Urine Ketones Negative (Negative); Urine Protein Trace mg/dL (Neg-Trace)
[2024-02-09 12:29] LABS: Basophils Percent Auto 0.4 % (0-2); Eosinophils Absolute Auto 0.3 X10*3/uL (0.0-0.4); Eosinophils Percent Auto 3.4 % (0-4); Hematocrit 42.8 % (42.0-52.0); Hemoglobin 14.2 g/dl (14.0-18.0); Imm Gran Abs Auto 0.03 X10*3/uL (0.00-0.03); Imm Gran Pct Auto 0.4 % (0.0-0.4); Lymphocytes Absolute Auto 2.1 X10*3/uL (1.2-4.9); Lymphocytes Percent Auto 25.6 % (20-40); Mean Corpuscular HGB Conc 33.2 g/dl (31.0-36.0); Mean Corpuscular Hemoglobin 31.8 pg (27.0-33.0); Mean Corpuscular Volume 95.7 fL (80.0-98.0); Mean Platelet Volume 10.4 fL (9.4-12.4); Monocytes Absolute Auto 0.8 X10*3/uL (0.1-1.2); Monocytes Percent Auto 9.8 % (2-11); Neutrophils Absolute Auto 4.9 x10*3/uL (2.0-8.3); Neutrophils Percent Auto 60.4 % (45-73); Platelet Count 190 X10*3/uL (160-400); Red Blood Count 4.47 X10*6/uL (4.60-5.80); Red Cell Distribution Width 14.4 % (11.0-16.0); White Blood Count 8.1 X10*3/uL (4.8-10.8)
== END 2024-02-09 08:12 | disposition home or self-care (01) ==
LOC: HO.LAB 08:11
PROVIDERS: PCP Internal Medicine; Visit Provider Internal Medicine
DX: E78.00 Pure hypercholesterolemia, unspecified (principal); D64.9 Anemia, unspecified; E55.9 Vitamin D deficiency, unspecified; R30.0 Dysuria; E53.8 Deficiency of other specified B group vitamins
CPT/HCPCS: 36415; 80053; 80061; 81003; 82306; 82607; 82746; 84443; 85025

== ENCOUNTER 2024-02-10 09:45 | Outpatient (AMB) | payer MEDICARE, SELFPAY ==
[2024-02-10 10:01] VITALS: BP 132/84; PULSE 52; O2SAT 96; BMI 25.5
--- NOTE | 2024-02-10 10:01 | MHC.PC.OV ---
Vital Signs 02/10/24 10:01 02/10/24 10:07 Height 5 ft 11 in Weight 183 lb 2 oz BMI 25.5 BP 132/84 124/76 Blood Pressure Location Lt brachial Rt brachial Position Sitting Sitting Pulse 52 Pulse Source Pulse Oximeter Pulse Oximetry (%) 96 Oxygen Delivery Method Room Air Intake Visit Reasons: hyperlipdiemia, CAD, HTN, IFG Black Belt Required: No Accompanied by: Self / Same As Patient Allergies Cephalosporins Allergy (Mild, Verified 02/10/24 10:23) Unknown cefazolin Allergy (Unknown, Verified 02/10/24 10:23) Unknown clindamycin Adverse Reaction (Intermediate, Verified 02/10/24 10:23) constipation,abdominal discomfort pneumococcal vaccine Adverse Reaction (Unknown, Verified 02/10/24 10:23) arm swelling Medication List - Last Reconciled 02/10/24 by Reg Laboy MD amlodipine 5 mg PO QAM aspirin 81 mg PO DAILY atorvastatin 80 mg PO DAILY betamethasone dipropionate 0.05% 1 ea topical BID PRN cholecalciferol (vitamin D3) 25 mcg PO DAILY [CPAP device As directed] lisinopril 40 mg PO DAILY Tobacco use date assessed: 02/10/24 Fall risk assessment: No Falls in past year Last assessed Fall Risk: 02/10/24 Dental Screening Dental Screen Date: 02/10/24 Did you have a dental visit in the last 12 months?: Yes Did you have a dental problem in the last 6 months where you did not have access to dental care?: No Was dental information given to patient?: Patient has dentist HPI hyperlipdiemia, CAD, HTN, IFG HPI Details Patient comes in today for his follow-up visit States that he feels okay He denies any headaches or dizziness Denies any chest pains, no shortness of breath No nausea/vomiting, no abdominal pain No change in bowel habits noted He had his follow-up labs done yesterday - to discuss his results [facility] Medical History Overweight (BMI 25.0-29.9) Benign prostatic hyperplasia with lower urinary tract symptoms Obstructive sleep apnea Vitamin D deficiency Asthma Pure hypercholesterolemia Benign essential hypertension Coronary artery disease Surgical History History of open heart surgery History of inguinal hernia repair History of tonsillectomy Family History Father Cancer Mother Cancer Other Alcohol abuse Social History Housing: House Alcohol intake: current Alcohol intake frequency: 3 or more drinks per day Alcohol type: beer Patient Tobacco Use Status: Former Tobacco user e-Cigarette/Vaping Use: Never Used Second Hand Smoke Exposure: Yes service: No Current occupational status: retired Cognitive needs: No Hearing needs: No Vision needs: Yes Questionnaire PHQ-9 Over the last 2 weeks, how often have you been bothered by any of the following problems? 1. Little interest or pleasure in doing things: not at all 2. Feeling down, depressed, or hopeless: not at all 3. Trouble falling or staying asleep, or sleeping too much: not at all 4. Feeling tired or having little energy: not at all 5. Poor appetite or overeating: not at all 6. Feeling bad about yourself - or that you are a failure or have let yourself or your family down: not at all 7. Trouble concentrating on things, such as reading the newspaper or watching television: not at all 8. Moving or speaking so slowly that other people could have noticed. Or the opposite - being so fidgety or restless that you have been moving around a lot more than usual: not at all 9. Thoughts that you would be better off or of hurting yourself in some way: not at all Total score: 0 Depression Screening Interpretation: Negative Depression Screening Done: Yes 89198 - PHQ-9 Billing: Yes Source: Developed by Drs. Ruy Hernandez, Ximena Mcgowan, Polo Nielsen and colleagues, with an educational javier from [employer]. Thrive Questionnaire Date Thrive assessed: 02/10/24 I am a: Patient What is your living situation today?: I have a steady place to live Within the past 12 months, did the food you bought not last and you didn't have the money to get more?: Never true Within the past 12 months, did you worry whether your food would run out before you got money to buy more?: Never true Do you have trouble paying for medicines?: No Do you have trouble getting transportation to medical appointments?: No Do you have trouble paying your heating and electricity bill?: No Do you have trouble taking care of your child, family member or friend?: No Do you have trouble with day-to-day activities such as bathing, preparing meals, shopping, managing finances, etc.?: No Are you currently unemployed and looking for a job?: No Are you interested in more education?: No Please select the resources that you would like help with: None Currently or been in a relationship where the following occur: No concerns reported THRIVE Score: 0 AUDIT C Alcohol Use Questionnaire (AUDIT-C) 1. How often do you have a drink containing alcohol?: 4 or more times a week 2. How many drinks containing alcohol do you have on a typical day when you are drinking?: 3 or 4 (drinks about 4 light beers ([place] Light) a day) 3. How often do you have six or more drinks on one occasion?: Less than monthly Total Score: 6 Score Reviewed/Action Taken: Yes (has been advised to cut back - patient states he drinks only light beer now) RAMEZ-7 AMB Questionnaire RAMEZ-7 Date RAMEZ - 7 assessed: 02/10/24 Feeling nervous, anxious, or on edge: 0 = Not at all Not being able to stop or control worryin = Not at all Worrying too much about different things: 0 = Not at all Trouble relaxin = Not at all Being so restless that it is hard to sit still: 0 = Not at all Becoming easily annoyed or irritable: 0 = Not at all Feeling afraid as if something awful might happen: 0 = Not at all Total RAMEZ-7 score (0-4 normal; 5-9 mild; 10-14 moderate; 15-21 severe): 0 Source: Developed by Drs. Ruy Hernandez, Ximena Mcgowan, Polo Nielsen and colleagues, with an educational javier from [employer]. RAMEZ-7 Assessment Billing RAMEZ-7 Assessment Tool: RAMEZ-7 Assessment 83897 Review of Systems Const Denies chills, Denies fatigue, Denies fever(s) and Denies headache(s) ENT Denies dysphagia, Denies dizziness, Denies otalgia, Denies headache(s), Denies neck pain, Denies odynophagia and Denies sore throat Card Denies chest pain, Denies palpitations and Denies dyspnea Resp Denies cough and Denies dyspnea GI Denies abdominal pain, Denies constipation, Denies dysphagia, Denies heartburn, Denies diarrhea, Denies nausea, Denies odynophagia and Denies vomiting Reports difficulty urinating (at times), Denies dysuria, Denies nocturia and Reports urinary frequency Musc Denies back pain, Reports arthralgias (left shoulder) and Denies neck pain Skin/Breast Denies rash Neuro Denies dizziness and Denies headache(s) Endo Denies fatigue and Denies palpitations Physical exam (Primary Care) Vital Signs: Last Vital Signs Pulse 52 02/10/24 10:01 BP 124/76 02/10/24 10:07 Pulse Ox 96 02/10/24 10:01 Oxygen Delivery Method Room Air 02/10/24 10:01 BMI result Body Mass Index 25.5 Tobacco/Smoking Status: Tobacco use Status Tobacco use date assessed 02/10/24 02/10/24 10:02 Patient Tobacco Use Status Former Tobacco user 02/10/24 10:02 e-Cigarette/Vaping Use Never Used 02/10/24 10:02 PHQ-9: PHQ-9 Score PHQ-9: Total score 0 02/10/24 10:02 Depression Screening Interpretation: Negative Thrive Assessment: Date of Thrive Assessment Date Thrive assessed 02/10/24 02/10/24 10:02 Currently or been in a relationship where the following occur: No concerns reported Const General: no acute distress and alert HENMT Ears: TM's normal bilaterally and EAC's normal Throat: Yes posterior oropharynx normal and Yes tonsils normal (no TP congestion noted) Neck Neck: Yes no lymphadenopathy and Yes supple Thyroid: Thyroid normal Resp Auscultation: clear to auscultation bilaterally, no rales and no wheezes Cardio Rate: regular rate Rhythm: regular rhythm Heart sounds: no murmurs GI Palpation (GI): Soft to palpation and nontender Auscultation: normal bowel sounds General: Yes no CVA tenderness Back/Spine/Pelvis Back: no CVA tenderness Skin Rashes: no rashes Extrem General: Yes no clubbing, cyanosis or edema Results Reviewed Results Reviewed: Laboratory Tests 02/09/24 02/09/24 08:25 08:59 WBC 8.1 Hgb 14.2 Hct 42.8 Plt Count 190 Sodium 143 Potassium 4.3 Creatinine 1.18 Estimated GFR 60 Fasting Glucose 86 Calcium 9.6 AST 22 ALT 32 Triglycerides 66 Cholesterol 115 LDL Cholesterol, Calc 59 HDL Cholesterol 43 Vitamin B12 474 25-OH Vitamin D Total 42.7 TSH 1.98 Ur Specific [place] 1.015 Urine Protein Trace Urine Glucose (UA) Negative Urine Blood Negative Urine Nitrite Negative Ur Leukocyte Esterase Negative Assessment and Plan Assessment & Plan (1) Coronary artery disease: Comment: S/P quadruple bypass surgery back in August 2016 (had three-vessel coronary disease with 50% stenosis in the distal left main, 99% ostial circumflex with TIMI2 flow due to left to left and right to left collaterals, 70% stenosis in the mid LAD, 70% stenosis in the mid RCA and 80% stenosis in the PDA seen on cardiac catheterization in 2015) - patient completed cardiac rehab with significant functional improvement Code(s): I25.10 - Atherosclerotic heart disease of [place] coronary artery without angina pectoris Qualifiers: Coronary Disease-Associated Artery/Lesion type: [place] artery [place] vs. transplanted heart: [place] heart Associated angina: without angina Qualified Code(s): I25.10 - Atherosclerotic heart disease of [place] coronary artery without angina pectoris Plan: Patient remains asymptomatic from a cardiac standpoint Continue low-dose Aspirin 81 mg QD Follow up with cardiology as scheduled (2) Pure hypercholesterolemia: Code(s): E78.00 - Pure hypercholesterolemia, unspecified Plan: Results of his labs done yesterday reviewed and discussed with patient Reinforced low cholesterol diet Continue Atorvastatin 80 mg QD Will recheck his labs and fasting lipids in 4 months for follow-up (3) Benign essential hypertension: Code(s): I10 - Essential (primary) hypertension Plan: Reinforced low-sodium diet - goal is systolic BP of at least 140 to 150 mm or less Continue Lisinopril 40 mg QD and Amlodipine 5 mg QD (4) Asthma: Code(s): J45.909 - Unspecified asthma, uncomplicated Qualifiers: Asthma severity: mild Asthma persistence: intermittent Asthma complication type: uncomplicated Qualified Code(s): J45.20 - Mild intermittent asthma, uncomplicated Plan: Stable - patient states that he has not had to use any of his inhalers for the past few years (5) Obstructive sleep apnea: Code(s): G47.33 - Obstructive sleep apnea (adult) (pediatric) Plan: Continue using his CPAP device when sleeping at night - states that he is doing very well on his CPAP with no acute issues As it has been a few years now since he's had a sleep study done, have previously advised him that it may be prudent to get his sleep apnea reassessed and that we can now refer him to a sleep specialist here locally for his convenience Patient would still like to hold off on this for now; states that he will call for a referral when he feels he is ready to get his sleep apnea rechecked (6) Elevated alanine aminotransferase (ALT) level: Code(s): R74.01 - Elevation of levels of liver transaminase levels Plan: Patient's ALT and AST have remained normal on his recent labs This was most likely due to the effects of alcohol, as he admitted to drinking light beer often and regularly Will continue to monitor his LFTs regularly (7) Impaired fasting glucose: Code(s): R73.01 - Impaired fasting glucose Plan: FBS was normal at 86 mg/dl on his labs done yesterday; HgbA1c was normal at 5.5% when previously checked Reinforced low calorie diet (8) Vitamin D deficiency: Code(s): E55.9 - Vitamin D deficiency, unspecified Plan: Continue Vitamin D3 1000 units QD (9) Dermatitis: Code(s): L30.9 - Dermatitis, unspecified Plan: Continue Betamethasone Dipropionate 0.05% apply BID PRN (10) Benign prostatic hyperplasia with lower urinary tract symptoms: Code(s): N40.1 - Benign prostatic hyperplasia with lower urinary tract symptoms Qualifiers: Lower urinary tract symptom detail: unspecified Qualified Code(s): N40.1 - Benign prostatic hyperplasia with lower urinary tract symptoms Plan: Follow up with urology (Dr. Rose) as scheduled Patient stopped taking his previous Rx (Terazosin and Finasteride) as he felt that they were not really helping much - notes that his symptoms have not gotten any worse since stopping his meds (11) Overweight (BMI 25.0-29.9): Code(s): E66.3 - Overweight Plan: Reinforced diet/exercise as tolerated/lose weight Plan Follow up in 4 months Orders: Orders Lipid Panel 4 Months E78.00 - Pure hypercholesterolemia, unspecified UA CC w/rflx Micro + Cult 4 Months R30.0 - Dysuria Vitamin D 25-OH Total 4 Months E55.9 - Vitamin D deficiency, unspecified Complete Blood Count Auto Diff 4 Months D64.9 - Anemia, unspecified Comprehensive [place]. Panel Fast 4 Months E78.00 - Pure hypercholesterolemia, unspecified Coding Level of Care Code Est Pt Level 4 (14235) Diagnoses Coronary artery disease involving [place] coronary artery of [place] heart without angina pectoris I25.10 Coronary Disease-Associated Artery/Lesion type: [place] artery [place] vs. transplanted heart: [place] heart Associated angina: without angina Pure hypercholesterolemia E78.00 Benign essential hypertension I10 Mild intermittent asthma without complication J45.20 Asthma severity: mild Asthma persistence: intermittent Asthma complication type: uncomplicated Obstructive sleep apnea G47.33 Elevated alanine aminotransferase (ALT) level R74.01 Impaired fasting glucose R73.01 Vitamin D deficiency E55.9 Dermatitis L30.9 Benign prostatic hyperplasia with lower urinary tract symptoms, symptom details unspecified N40.1 Lower urinary tract symptom detail: unspecified Overweight (BMI 25.0-29.9) E66.3 Additional Codes RAMEZ-7 Assessment Billing - RAMEZ-7 Assessment Tool: RAMEZ-7 Assessment [id number] ([id number])
[2024-02-10 10:07] VITALS: BP 124/76
== END 2024-02-10 10:36 | disposition home or self-care (01) ==
PROVIDERS: PCP Internal Medicine; Visit Provider Internal Medicine
DX: I25.10 Atherosclerotic heart disease of native coronary artery without angina pectoris (principal); E78.00 Pure hypercholesterolemia, unspecified; I10 Essential (primary) hypertension; J45.20 Mild intermittent asthma, uncomplicated; G47.33 Obstructive sleep apnea (adult) (pediatric); R74.01 Elevation of levels of liver transaminase levels; R73.01 Impaired fasting glucose; E55.9 Vitamin D deficiency, unspecified; L30.9 Dermatitis, unspecified; N40.1 Benign prostatic hyperplasia with lower urinary tract symptoms; E66.3 Overweight
CPT/HCPCS: 99214

== ENCOUNTER 2024-06-07 08:38 | Outpatient (REF) | payer MEDICARE, SELFPAY ==
[2024-06-07 09:00] LABS: MANUAL DIFF FLAG NO
[2024-06-07 10:09] LABS: Basophils Percent Auto 0.4 % (0-2); Eosinophils Absolute Auto 0.2 X10*3/uL (0.0-0.4); Eosinophils Percent Auto 2.8 % (0-4); Hematocrit 44.8 % (42.0-52.0); Imm Gran Abs Auto 0.02 X10*3/uL (0.00-0.03); Imm Gran Pct Auto 0.3 % (0.0-0.4); Lymphocytes Absolute Auto 1.8 X10*3/uL (1.2-4.9); Lymphocytes Percent Auto 24.7 % (20-40); Mean Corpuscular HGB Conc 33.5 g/dl (31.0-36.0); Mean Corpuscular Hemoglobin 31.2 pg (27.0-33.0); Mean Corpuscular Volume 93.1 fL (80.0-98.0); Mean Platelet Volume 10.4 fL (9.4-12.4); Monocytes Absolute Auto 0.7 X10*3/uL (0.1-1.2); Monocytes Percent Auto 9.5 % (2-11); Neutrophils Absolute Auto 4.6 x10*3/uL (2.0-8.3); Neutrophils Percent Auto 62.3 % (45-73); Platelet Count 211 X10*3/uL (160-400); Red Blood Count 4.81 X10*6/uL (4.60-5.80); Red Cell Distribution Width 13.8 % (11.0-16.0); White Blood Count 7.4 X10*3/uL (4.8-10.8)
[2024-06-07 10:38] LABS: Alanine Aminotransferase 30 U/L (0-40); Albumin Level 4.1 g/dL (3.5-5.0); Alkaline Phosphatase 68 U/L (39-117); Anion Gap 10 (12-20); Aspartate Amino Transferase 20 U/L (5-37); Blood Urea Nitrogen 18 mg/dL (9-16); Calcium 9.4 mg/dL (8.4-10.2); Carbon Dioxide 23 mmol/L (22-29); Chloride 111 mmol/L (96-108); Cholesterol 100 mg/dL (<200); Estimated Glomerular Filt Rate > 60; Glucose Fasting 99 mg/dL (60-99); HDL Cholesterol 39 mg/dL (>40); LDL Cholesterol Calculated 47 mg/dL (<100); Potassium 4.1 mmol/L (3.3-5.1); Sodium 140 mmol/L (135-145); Triglycerides 72 mg/dL (<150)
[2024-06-07 10:58] LABS: Vitamin D 25-OH Total 43.4 ng/mL (>30)
[2024-06-07 11:04] LABS: Appearance Urine Clear; Color Urine Yellow; Glucose Urine UA Negative (Negative); Leukocyte Esterase Urine Negative (Negative); Nitrite Urine Negative (Negative); Specific Gravity - Urine 1.025 (1.005-1.025); UMIC TRIGGER UACC YES; Urine Blood Negative (Negative); Urine Ketones Negative (Negative); Urine Protein 30 (1+) mg/dL (Neg-Trace)
[2024-06-07 11:10] LABS: Bacteria Urine None Seen (None Seen); Hyaline Casts Urine 0-2 /LPF (0-2); RBC Urine 0-2 /HPF (0-2); Squamous Epithelial Cell Urine 0-2 /HPF (0-2); WBC Urine 0-5 /HPF (0-5)
== END 2024-06-07 08:39 | disposition home or self-care (01) ==
LOC: HO.LAB 08:38
PROVIDERS: PCP Internal Medicine; Visit Provider Internal Medicine
DX: E78.00 Pure hypercholesterolemia, unspecified (principal); E55.9 Vitamin D deficiency, unspecified; D64.9 Anemia, unspecified
CPT/HCPCS: 36415; 80053; 80061; 81001; 81003; 82306; 85025

== ENCOUNTER 2024-06-15 09:26 | Outpatient (AMB) | payer MEDICARE, SELFPAY ==
--- NOTE | 2024-06-15 09:27 | A.OFFPC_ITS ---
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: Not Required per policy Accompanied by: Self / Same As Patient Allergies Cephalosporins Allergy (Mild, Verified 06/15/24 09:49) Unknown cefazolin Allergy (Unknown, Verified 06/15/24 09:49) Unknown clindamycin Adverse Reaction (Intermediate, Verified 06/15/24 09:49) constipation,abdominal discomfort pneumococcal vaccine Adverse Reaction (Unknown, Verified 06/15/24 09:49) arm swelling Medication List - Last Reconciled 06/15/24 by Reg Laboy MD amlodipine 5 mg PO QAM aspirin 81 mg PO DAILY atorvastatin 80 mg PO DAILY betamethasone dipropionate 0.05% 1 ea topical BID PRN cholecalciferol (vitamin D3) 25 mcg PO DAILY [CPAP device As directed] lisinopril 40 mg PO DAILY Tobacco use date assessed: 06/15/24 Fall risk assessment: No Falls in past year Last assessed Fall Risk: 06/15/24 Dental Screening Dental Screen Date: 06/15/24 Did you have a dental visit in the last 12 months?: Yes Did you have a dental problem in the last 6 months where you did not have access to dental care?: No Was dental information given to patient?: Patient has dentist HPI CAD, hyperlipidemia, HTN, asthma, DEEPAK HPI Details Patient comes in today for his follow-up visit States that he feels okay He denies any headaches or dizziness Denies any chest pains, no shortness of breath No nausea/vomiting, no abdominal pain No change in bowel habits noted He had his follow-up labs done last week - to discuss his results He would also like to get his flu shot today [facility] Medical History (Updated 06/15/24 @ 10:04 by Reg Laboy MD) Benign prostatic hyperplasia with lower urinary tract symptoms Obstructive sleep apnea Vitamin D deficiency Asthma Pure hypercholesterolemia Benign essential hypertension Coronary artery disease Surgical History History of open heart surgery History of inguinal hernia repair History of tonsillectomy Family History Father Cancer Mother Cancer Other Alcohol abuse Social History Housing: House Alcohol intake: current Alcohol intake frequency: 3 or more drinks per day Alcohol type: beer Patient Tobacco Use Status: Former Tobacco user e-Cigarette/Vaping Use: Never Used Second Hand Smoke Exposure: Yes service: No Current occupational status: retired Cognitive needs: No Hearing needs: No Vision needs: Yes (Glasses) Questionnaire PHQ-9 Over the last 2 weeks, how often have you been bothered by any of the following problems? 1. Little interest or pleasure in doing things: not at all 2. Feeling down, depressed, or hopeless: not at all 3. Trouble falling or staying asleep, or sleeping too much: not at all 4. Feeling tired or having little energy: not at all 5. Poor appetite or overeating: not at all 6. Feeling bad about yourself - or that you are a failure or have let yourself or your family down: not at all 7. Trouble concentrating on things, such as reading the newspaper or watching television: not at all 8. Moving or speaking so slowly that other people could have noticed. Or the opposite - being so fidgety or restless that you have been moving around a lot more than usual: not at all 9. Thoughts that you would be better off or of hurting yourself in some way: not at all Total score: 0 Depression Screening Interpretation: Negative Depression Screening Done: Yes 50708 - PHQ-9 Billing: Yes Source: Developed by Drs. Ruy Hernandez, Ximena Mcgowan, Polo Nielsen and colleagues, with an educational javier from [employer]. Thrive Questionnaire Date Thrive assessed: 06/15/24 I am a: Patient What is your living situation today?: I have a steady place to live Within the past 12 months, did the food you bought not last and you didn't have the money to get more?: Never true Within the past 12 months, did you worry whether your food would run out before you got money to buy more?: Never true Do you have trouble paying for medicines?: No Do you have trouble getting transportation to medical appointments?: No Do you have trouble paying your heating and electricity bill?: No Do you have trouble taking care of your child, family member or friend?: No Do you have trouble with day-to-day activities such as bathing, preparing meals, shopping, managing finances, etc.?: No Are you currently unemployed and looking for a job?: No Are you interested in more education?: No Please select the resources that you would like help with: None Currently or been in a relationship where the following occur: No concerns reported THRIVE Score: 0 AUDIT C Alcohol Use Questionnaire (AUDIT-C) 1. How often do you have a drink containing alcohol?: 4 or more times a week 2. How many drinks containing alcohol do you have on a typical day when you are drinking?: 3 or 4 (drinks about 3 light beers ([place] Light) a day) 3. How often do you have six or more drinks on one occasion?: Never Total Score: 5 Score Reviewed/Action Taken: Yes (has been advised to cut back - patient states he drinks only light beer now) RAMEZ-7 AMB Questionnaire RAMEZ-7 Date RAMEZ - 7 assessed: 06/15/24 Feeling nervous, anxious, or on edge: 0 = Not at all Not being able to stop or control worryin = Not at all Worrying too much about different things: 0 = Not at all Trouble relaxin = Not at all Being so restless that it is hard to sit still: 0 = Not at all Becoming easily annoyed or irritable: 0 = Not at all Feeling afraid as if something awful might happen: 0 = Not at all Total RAMEZ-7 score (0-4 normal; 5-9 mild; 10-14 moderate; 15-21 severe): 0 Source: Developed by Drs. Ruy Hernandez, Ximena Mcgowan, Polo Nielsen and colleagues, with an educational javier from [employer]. Review of Systems Const Denies chills, Denies difficulty sleeping, Denies fatigue, Denies fever(s) and Denies headache(s) ENT Denies dysphagia, Denies dizziness, Denies otalgia, Denies headache(s), Denies neck pain, Denies odynophagia and Denies sore throat Card Denies chest pain, Denies palpitations and Denies dyspnea Resp Denies chest congestion, Denies cough and Denies dyspnea GI Denies abdominal pain, Denies constipation, Denies dysphagia, Denies heartburn, Denies diarrhea, Denies nausea, Denies odynophagia and Denies vomiting Reports difficulty urinating (at times), Denies dysuria, Denies nocturia and Reports urinary frequency Musc Denies back pain, Reports arthralgias (left shoulder) and Denies neck pain Skin/Breast Denies rash Neuro Denies dizziness and Denies headache(s) Endo Denies fatigue and Denies palpitations Physical exam (Primary Care) Vital Signs: Last Vital Signs Temp 97.1 F 06/15/24 09:29 Pulse 62 06/15/24 09:29 BP 120/70 06/15/24 09:29 Pulse Ox 97 06/15/24 09:29 Oxygen Delivery Method Room Air 06/15/24 09:29 BMI result Body Mass Index 24.9 Tobacco/Smoking Status: Tobacco use Status Tobacco use date assessed 06/15/24 06/15/24 09:34 Patient Tobacco Use Status Former Tobacco user 06/15/24 09:34 e-Cigarette/Vaping Use Never Used 06/15/24 09:34 PHQ-9: PHQ-9 Score PHQ-9: Total score 0 06/15/24 09:53 Depression Screening Interpretation: Negative Thrive Assessment: Date of Thrive Assessment Date Thrive assessed 06/15/24 06/15/24 09:34 Currently or been in a relationship where the following occur: No concerns reported Const General: no acute distress and alert HENMT Ears: TM's normal bilaterally and EAC's normal Throat: Yes posterior oropharynx normal and Yes tonsils normal (no TP congestion noted) Neck Neck: Yes supple and No lymphadenopathy Thyroid: Thyroid normal Resp Auscultation: clear to auscultation bilaterally, no rales and no wheezes Cardio Rate: regular rate Rhythm: regular rhythm Heart sounds: no murmurs GI Palpation (GI): Soft to palpation and nontender Auscultation: normal bowel sounds General: Yes no CVA tenderness Back/Spine/Pelvis Back: no CVA tenderness Thoracic/Lumbar Spine: No lumbar spinal tenderness Skin Rashes: no rashes Extrem General: Yes no clubbing, cyanosis or edema Office Procedures Flu Questionnaire Does the patient have a severe egg allergy?: No Does the patient have severe life threatening allergies?: No Does the patient have a fever or illness today?: No Has the patient ever had Guillain-Callands Syndrome?: No Has the patient ever had any past reaction to a flu shot?: No Immunizations Fluarix Triv [id number] (PF) 45 mcg (15 mcg x 3)/0.5 mL IM syringe Performing Provider: Reg Laboy MD [facility] [place] [facility] Administered by: Almaz Hamilton LPN on 06/15/24 09:43 Dose Route Admin Location Dispensed Lot Number Expiration Date [facility] Rehabilitation Inspector 0.5 mL IM Left Deltoid 0.5 mL [id number] 11/27/24 [id number] [employer] VIS Given Date VIS Provided VIS Publication Date 06/15/24 Single Vaccine 21 Eligibility Eligibility Date Funding Source Not [facility] Eligible 06/15/24 Private Results Reviewed Results Reviewed: Laboratory Tests 06/07/24 06/07/24 08:55 08:59 WBC 7.4 Hgb 15.0 Hct 44.8 Plt Count 211 Sodium 140 Potassium 4.1 Creatinine 0.99 Estimated GFR > 60 Fasting Glucose 99 Calcium 9.4 Total Bilirubin 1.0 AST 20 ALT 30 Triglycerides 72 Cholesterol 100 LDL Cholesterol, Calc 47 HDL Cholesterol 39 L 25-OH Vitamin D Total 43.4 Ur Specific [place] 1.025 Urine Protein 30 (1+) H Urine Glucose (UA) Negative Urine Blood Negative Urine Nitrite Negative Ur Leukocyte Esterase Negative Coding Level of Care Code Est Pt Level 4 (21458) Complex EM visit Add On G2211 Diagnoses Coronary artery disease involving [place] coronary artery of [place] heart without angina pectoris I25.10 Associated angina: without angina Coronary Disease-Associated Artery/Lesion type: [place] artery [place] vs. transplanted heart: [place] heart Pure hypercholesterolemia E78.00 Benign essential hypertension I10 Mild intermittent asthma without complication J45.20 Asthma complication type: uncomplicated Asthma persistence: intermittent Asthma severity: mild Obstructive sleep apnea G47.33 Impaired fasting glucose R73.01 Elevated alanine aminotransferase (ALT) level R74.01 Vitamin D deficiency E55.9 Dermatitis L30.9 Benign prostatic hyperplasia with lower urinary tract symptoms, symptom details unspecified N40.1 Lower urinary tract symptom detail: unspecified Additional Codes PHQ-9 - 68471 - PHQ-9 Billing: Yes ([id number]) Assessment & Plan Assessment & Plan (1) Coronary artery disease: Comment: S/P quadruple bypass surgery back in August 2016 (had three-vessel coronary disease with 50% stenosis in the distal left main, 99% ostial circumflex with TIMI2 flow due to left to left and right to left collaterals, 70% stenosis in the mid LAD, 70% stenosis in the mid RCA and 80% stenosis in the PDA seen on cardiac catheterization in 2016) - patient completed cardiac rehab with significant functional improvement Code(s): I25.10 - Atherosclerotic heart disease of [place] coronary artery without angina pectoris Category: Medical Qualifiers: Associated angina: without angina Coronary Disease-Associated Artery/Lesion type: [place] artery [place] vs. transplanted heart: [place] heart Qualified Code(s): I25.10 - Atherosclerotic heart disease of [place] coronary artery without angina pectoris Plan: Patient remains mostly asymptomatic from a cardiac standpoint Continue low-dose Aspirin 81 mg QD He did have a nuclear stress test done again a few months ago with cardiology that came out normal He also had a 24 hour Holter monitor last month that revealed NSR as the prevailing rhythm, with first-degree AV block Follow up with cardiology as scheduled (2) Pure hypercholesterolemia: Code(s): E78.00 - Pure hypercholesterolemia, unspecified Category: Medical Plan: Results of his labs done last week reviewed and discussed with patient Reinforced low cholesterol diet Continue Atorvastatin 80 mg QD Will recheck his labs and fasting lipids in 4 months for follow-up (3) Benign essential hypertension: Code(s): I10 - Essential (primary) hypertension Category: Medical Plan: Reinforced low-sodium diet - goal is systolic BP of at least 140 to 150 mm or less Continue Lisinopril 40 mg QD and Amlodipine 5 mg QD (4) Asthma: Code(s): J45.909 - Unspecified asthma, uncomplicated Category: Medical Qualifiers: Asthma complication type: uncomplicated Asthma persistence: intermittent Asthma severity: mild Qualified Code(s): J45.20 - Mild intermittent asthma, uncomplicated Plan: Stable - patient states that he has not had to use any of his inhalers for the past few years (5) Obstructive sleep apnea: Code(s): G47.33 - Obstructive sleep apnea (adult) (pediatric) Category: Medical Plan: Patient continues to use his CPAP device when sleeping at night - states that he is doing very well on his CPAP with no acute issues As it has been a few years now since he's had a sleep study done, have advised him previously that it may be prudent to get his sleep apnea reassessed and that we can now refer him to a sleep specialist here locally for his convenience Patient would still like to hold off on this for now; states that he will call for a referral when he feels he is ready to get his sleep apnea rechecked (6) Impaired fasting glucose: Code(s): R73.01 - Impaired fasting glucose Category: Medical Plan: His FBS was again normal at 99 mg/dl on his labs done last week; HgbA1c was normal at 5.5% when previously checked Reinforced low calorie/low carb diet (7) Elevated alanine aminotransferase (ALT) level: Code(s): R74.01 - Elevation of levels of liver transaminase levels Category: Medical Plan: Patient's ALT and AST have remained normal on his recent labs This was most likely due to the effects of alcohol, as he admitted to drinking light beer often and regularly but he is actively working on cutting back on his drinking Will continue to monitor his LFTs regularly (8) Vitamin D deficiency: Code(s): E55.9 - Vitamin D deficiency, unspecified Category: Medical Plan: Continue Vitamin D3 1000 units QD (9) Dermatitis: Code(s): L30.9 - Dermatitis, unspecified Category: Medical Plan: Continue Betamethasone Dipropionate 0.05% apply BID PRN (10) Benign prostatic hyperplasia with lower urinary tract symptoms: Code(s): N40.1 - Benign prostatic hyperplasia with lower urinary tract symptoms Category: Medical Qualifiers: Lower urinary tract symptom detail: unspecified Qualified Code(s): N40.1 - Benign prostatic hyperplasia with lower urinary tract symptoms Plan: Follow up with urology (Dr. Rose) as scheduled Patient stopped taking his previous Rx (Terazosin and Finasteride) as he felt that they were not really helping much - notes that his symptoms have not gotten any worse since he stopped taking his previous meds Plan As requested, flu vaccine given today Follow up in 4 months Orders: Orders Lipid Panel 4 Months E78.00 - Pure hypercholesterolemia, unspecified TSH reflex Free T4 4 Months E78.00 - Pure hypercholesterolemia, unspecified Vitamin D 25-OH Total 4 Months E55.9 - Vitamin D deficiency, unspecified Influenza [id number] Immunization Today Z23 - Encounter for immunization Complete Blood Count Auto Diff 4 Months D64.9 - Anemia, unspecified Comprehensive [place]. Panel Fast 4 Months E78.00 - Pure hypercholesterolemia, unspecified UA CC w/rflx Micro + Cult 4 Months R30.0 - Dysuria
[2024-06-15 09:29] VITALS: BP 120/70; PULSE 62; TEMP 36.2; O2SAT 97; BMI 24.9
== END 2024-06-15 10:16 | disposition home or self-care (01) ==
PROVIDERS: PCP Internal Medicine; Visit Provider Internal Medicine
DX: I25.10 Atherosclerotic heart disease of native coronary artery without angina pectoris (principal); E78.00 Pure hypercholesterolemia, unspecified; I10 Essential (primary) hypertension; J45.20 Mild intermittent asthma, uncomplicated; G47.33 Obstructive sleep apnea (adult) (pediatric); R73.01 Impaired fasting glucose; R74.01 Elevation of levels of liver transaminase levels; E55.9 Vitamin D deficiency, unspecified; L30.9 Dermatitis, unspecified; N40.1 Benign prostatic hyperplasia with lower urinary tract symptoms; Z23 Encounter for immunization

== ENCOUNTER → 2024-06-15 09:26 | Outpatient (BNVA) | payer MEDICARE, SELFPAY | PROVIDERS: PCP Internal Medicine; Visit Provider Internal Medicine | DX: Z23 Encounter for immunization (principal); I25.10 Atherosclerotic heart disease of native coronary artery without angina pectoris; E78.00 Pure hypercholesterolemia, unspecified; I10 Essential (primary) hypertension; J45.20 Mild intermittent asthma, uncomplicated; G47.33 Obstructive sleep apnea (adult) (pediatric); R73.01 Impaired fasting glucose; R74.01 Elevation of levels of liver transaminase levels; E55.9 Vitamin D deficiency, unspecified; L30.9 Dermatitis, unspecified; N40.1 Benign prostatic hyperplasia with lower urinary tract symptoms | CPT/HCPCS: 90471; 90656; 96127; 99212 ==

== ENCOUNTER 2024-10-10 07:34 | Outpatient (REF) | payer MEDICARE, SELFPAY ==
[2024-10-10 08:52] LABS: Appearance Urine Clear; Color Urine Yellow; Glucose Urine UA Negative (Negative); Leukocyte Esterase Urine Negative (Negative); Nitrite Urine Negative (Negative); Urine Blood Negative (Negative); Urine Ketones Negative (Negative); Urine Protein Trace mg/dL (Neg-Trace)
[2024-10-11 19:38] LABS: Rubella IgG Antibody 6.35 Index; Rubeola IgG (Measles) >300.00 AU/mL
== END 2024-10-10 07:35 | disposition home or self-care (01) ==
LOC: HO.LAB 07:34
PROVIDERS: PCP Internal Medicine; Visit Provider Internal Medicine
DX: R30.0 Dysuria (principal); Z28.39 Other underimmunization status
CPT/HCPCS: 36415; 81003; 86735; 86762; 86765

== ENCOUNTER 2024-10-16 09:15 | Outpatient (AMB) | payer MEDICARE, SELFPAY ==
[2024-10-16 09:17] VITALS: BP 136/80; PULSE 59; O2SAT 97; BMI 25.3
--- NOTE | 2024-10-16 09:17 | MHC.PC.OV ---
Vital Signs 10/16/24 09:17 Height 5 ft 11 in Weight 181 lb 6 oz BMI 25.3 BP 136/80 Blood Pressure Location Lt brachial Position Sitting Pulse 59 Pulse Source Pulse Oximeter Pulse Oximetry (%) 97 Oxygen Delivery Method Room Air Intake Visit Reasons: 4 month f/u Barrel Marker Required: No Accompanied by: Self / Same As Patient Allergies Cephalosporins Allergy (Mild, Verified 10/16/24 09:43) Unknown cefazolin Allergy (Unknown, Verified 10/16/24 09:43) Unknown clindamycin Adverse Reaction (Intermediate, Verified 10/16/24 09:43) constipation,abdominal discomfort pneumococcal vaccine Adverse Reaction (Unknown, Verified 10/16/24 09:43) arm swelling Medication List - Last Reconciled 10/16/24 by Reg Laboy MD amlodipine 5 mg PO QAM aspirin 81 mg PO DAILY atorvastatin 80 mg PO DAILY betamethasone dipropionate 0.05% 1 ea topical BID PRN cholecalciferol (vitamin D3) 25 mcg PO DAILY [CPAP device As directed] lisinopril 40 mg PO DAILY Tobacco use date assessed: 10/16/24 Fall risk assessment: No Falls in past year Last assessed Fall Risk: 10/16/24 Dental Screening Dental Screen Date: 10/16/24 Did you have a dental visit in the last 12 months?: Yes Did you have a dental problem in the last 6 months where you did not have access to dental care?: No Was dental information given to patient?: Patient has dentist HPI 4 month f/u HPI Details Patient comes in today for his follow-up visit States that he feels okay He denies any headaches or dizziness Denies any chest pains, no shortness of breath No nausea/vomiting, no abdominal pain No change in bowel habits noted States that he went to get his follow up labs done last week but for unclear reasons, the lab only did a urinalysis and his added request for an MMR serologies BUT did not do his usual labs as ordered [facility] Medical History Benign prostatic hyperplasia with lower urinary tract symptoms Obstructive sleep apnea Vitamin D deficiency Asthma Pure hypercholesterolemia Benign essential hypertension Coronary artery disease Surgical History History of open heart surgery History of inguinal hernia repair History of tonsillectomy Family History Father Cancer Mother Cancer Other Alcohol abuse Social History Housing: House Alcohol intake: current Alcohol intake frequency: 3 or more drinks per day Alcohol type: beer Patient Tobacco Use Status: Former Tobacco user e-Cigarette/Vaping Use: Never Used Second Hand Smoke Exposure: Yes service: No Current occupational status: retired Cognitive needs: No Hearing needs: No Vision needs: Yes (Glasses) Questionnaire PHQ-9 Over the last 2 weeks, how often have you been bothered by any of the following problems? 1. Little interest or pleasure in doing things: not at all 2. Feeling down, depressed, or hopeless: not at all 3. Trouble falling or staying asleep, or sleeping too much: not at all 4. Feeling tired or having little energy: not at all 5. Poor appetite or overeating: not at all 6. Feeling bad about yourself - or that you are a failure or have let yourself or your family down: not at all 7. Trouble concentrating on things, such as reading the newspaper or watching television: not at all 8. Moving or speaking so slowly that other people could have noticed. Or the opposite - being so fidgety or restless that you have been moving around a lot more than usual: not at all 9. Thoughts that you would be better off or of hurting yourself in some way: not at all Total score: 0 Depression Screening Interpretation: Negative Depression Screening Done: Yes 23992 - PHQ-9 Billing: Yes Source: Developed by Drs. Ruy Hernandez, Ximena Mcgowan, Polo Nielsen and colleagues, with an educational javier from [employer]. Thrive Questionnaire Date Thrive assessed: 10/16/24 I am a: Patient What is your living situation today?: I choose not to answer this question Within the past 12 months, did the food you bought not last and you didn't have the money to get more?: I choose not to answer this question Within the past 12 months, did you worry whether your food would run out before you got money to buy more?: I choose not to answer this question Do you have trouble paying for medicines?: I choose not to answer this question Do you have trouble getting transportation to medical appointments?: I choose not to answer this question Do you have trouble paying your heating and electricity bill?: I choose not to answer this question Do you have trouble taking care of your child, family member or friend?: I choose not to answer this question Do you have trouble with day-to-day activities such as bathing, preparing meals, shopping, managing finances, etc.?: I choose not to answer this question Are you currently unemployed and looking for a job?: I choose not to answer this question Are you interested in more education?: I choose not to answer this question Please select the resources that you would like help with: None Currently or been in a relationship where the following occur: I choose not to answer THRIVE Score: 0 AUDIT C Alcohol Use Questionnaire (AUDIT-C) 1. How often do you have a drink containing alcohol?: Never 3. How often do you have six or more drinks on one occasion?: Never Total Score: 0 Score Reviewed/Action Taken: Yes RAMEZ-7 AMB Questionnaire RAMEZ-7 Date RAMEZ - 7 assessed: 10/16/24 Feeling nervous, anxious, or on edge: 0 = Not at all Not being able to stop or control worryin = Not at all Worrying too much about different things: 0 = Not at all Trouble relaxin = Not at all Being so restless that it is hard to sit still: 0 = Not at all Becoming easily annoyed or irritable: 0 = Not at all Feeling afraid as if something awful might happen: 0 = Not at all Total RAMEZ-7 score (0-4 normal; 5-9 mild; 10-14 moderate; 15-21 severe): 0 Source: Developed by Drs. Ruy Hernandez, Ximena Mcgowan, Polo Nielsen and colleagues, with an educational javier from [employer]. Review of Systems Const Denies chills, Denies difficulty sleeping, Denies fatigue, Denies fever(s) and Denies headache(s) ENT Denies dysphagia, Denies dizziness, Denies otalgia, Denies headache(s), Denies neck pain, Denies odynophagia and Denies sore throat Card Denies chest pain, Denies palpitations and Denies dyspnea Resp Denies chest congestion, Denies cough and Denies dyspnea GI Denies abdominal pain, Denies constipation, Denies dysphagia, Denies heartburn, Denies diarrhea, Denies nausea, Denies odynophagia and Denies vomiting Reports difficulty urinating (at times), Denies dysuria, Denies nocturia and Reports urinary frequency Musc Denies back pain, Reports arthralgias (left shoulder) and Denies neck pain Skin/Breast Denies rash Neuro Denies dizziness and Denies headache(s) Endo Denies fatigue and Denies palpitations Physical exam (Primary Care) Vital Signs: Last Vital Signs Pulse 59 10/16/24 09:17 BP 136/80 10/16/24 09:17 Pulse Ox 97 10/16/24 09:17 Oxygen Delivery Method Room Air 10/16/24 09:17 BMI result Body Mass Index 25.3 Tobacco/Smoking Status: Tobacco use Status Tobacco use date assessed 10/16/24 10/16/24 09:22 Patient Tobacco Use Status Former Tobacco user 10/16/24 09:22 e-Cigarette/Vaping Use Never Used 10/16/24 09:22 PHQ-9: PHQ-9 Score PHQ-9: Total score 0 10/16/24 09:22 Depression Screening Interpretation: Negative Thrive Assessment: Date of Thrive Assessment Date Thrive assessed 10/16/24 10/16/24 09:22 Currently or been in a relationship where the following occur: I choose not to answer Const General: no acute distress and alert HENMT Ears: TM's normal bilaterally and EAC's normal Throat: Yes posterior oropharynx normal and Yes tonsils normal (no TP congestion noted) Neck Neck: Yes supple and No lymphadenopathy Thyroid: Thyroid normal Resp Auscultation: clear to auscultation bilaterally, no rales and no wheezes Cardio Rate: regular rate Rhythm: regular rhythm Heart sounds: no murmurs GI Palpation (GI): Soft to palpation and nontender Auscultation: normal bowel sounds General: Yes no CVA tenderness Back/Spine/Pelvis Back: no CVA tenderness Thoracic/Lumbar Spine: No lumbar spinal tenderness Skin Rashes: no rashes Extrem General: Yes no clubbing, cyanosis or edema Coding Level of Care Code Est Pt Level 4 (79305) Diagnoses Coronary artery disease involving coquille coronary artery of [place] heart without angina pectoris I25.10 Coronary Disease-Associated Artery/Lesion type: [place] artery [place] vs. transplanted heart: co[place] heart Associated angina: without angina Pure hypercholesterolemia E78.00 Benign essential hypertension I10 Mild intermittent asthma without complication J45.20 Asthma severity: mild Asthma persistence: intermittent Asthma complication type: uncomplicated Obstructive sleep apnea G47.33 Impaired fasting glucose R73.01 Elevated alanine aminotransferase (ALT) level R74.01 Vitamin D deficiency E55.9 Dermatitis L30.9 Benign prostatic hyperplasia with lower urinary tract symptoms, symptom details unspecified N40.1 Lower urinary tract symptom detail: unspecified Additional Codes PHQ-9 - 92475 - PHQ-9 Billing: Yes ([id number]) Assessment & Plan Assessment & Plan (1) Coronary artery disease: Comment: S/P quadruple bypass surgery back in August 2016 (had three-vessel coronary disease with 50% stenosis in the distal left main, 99% ostial circumflex with TIMI2 flow due to left to left and right to left collaterals, 70% stenosis in the mid LAD, 70% stenosis in the mid RCA and 80% stenosis in the PDA seen on cardiac catheterization in 2015) - patient completed cardiac rehab with significant functional improvement Code(s): I25.10 - Atherosclerotic heart disease of [place]qu[place] coronary artery without angina pectoris Category: Medical Qualifiers: Coronary Disease-Associated Artery/Lesion type: [place] artery [place] vs. transplanted heart: [place] heart Associated angina: without angina Qualified Code(s): I25.10 - Atherosclerotic heart disease of [place] coronary artery without angina pectoris Plan: Patient remains asymptomatic from a cardiac standpoint Continue low-dose Aspirin 81 mg QD He had a repeat nuclear stress testing done last year with cardiology that came out normal He also had a 24 hour Holter monitor last year that revealed NSR as the prevailing rhythm, with first-degree AV block Follow up with cardiology as scheduled (2) Pure hypercholesterolemia: Code(s): E78.00 - Pure hypercholesterolemia, unspecified Category: Medical Plan: Patient states that he went to get his follow up labs done last week but for unclear reasons, the lab only did a urinalysis and his added request for an MMR serologies BUT did not do his usual labs as ordered Reinforced low cholesterol diet Continue Atorvastatin 80 mg QD Will recheck his labs and fasting lipids in 4 months for follow-up - will just have patient use his previous orders (updated) for his next lab draw (3) Benign essential hypertension: Code(s): I10 - Essential (primary) hypertension Category: Medical Plan: Reinforced low-sodium diet - goal is systolic BP of at least 140 to 150 mm or less Continue Lisinopril 40 mg QD and Amlodipine 5 mg QD (4) Asthma: Code(s): J45.909 - Unspecified asthma, uncomplicated Category: Medical Qualifiers: Asthma severity: mild Asthma persistence: intermittent Asthma complication type: uncomplicated Qualified Code(s): J45.20 - Mild intermittent asthma, uncomplicated Plan: Stable - patient states that he has not had to use any of his inhalers for the past few years (5) Obstructive sleep apnea: Code(s): G47.33 - Obstructive sleep apnea (adult) (pediatric) Category: Medical Plan: Patient continues to use his CPAP device when sleeping at night - states that he is doing very well on his CPAP with no acute issues As it has been a few years now since he's had a sleep study done, have advised him previously that it may be prudent to get his sleep apnea reassessed and that we can now refer him to a sleep specialist here locally for his convenience Patient would still like to hold off on this for now; states that he will call for a referral when he feels he is ready to get his sleep apnea rechecked (6) Impaired fasting glucose: Code(s): R73.01 - Impaired fasting glucose Category: Medical Plan: His FBS was again normal at 99 mg/dl on his labs last done a few months ago; HgbA1c was also normal at 5.5% when previously checked Reinforced low calorie/low carb diet (7) Elevated alanine aminotransferase (ALT) level: Code(s): R74.01 - Elevation of levels of liver transaminase levels Category: Medical Plan: Patient's ALT and AST have remained normal on his most recent labs done a few months ago This was most likely due to the effects of alcohol, as he admitted to drinking light beer often and regularly but he is actively working on cutting back on his drinking Will continue to monitor his LFTs regularly (8) Vitamin D deficiency: Code(s): E55.9 - Vitamin D deficiency, unspecified Category: Medical Plan: Continue Vitamin D3 1000 units QD (9) Dermatitis: Code(s): L30.9 - Dermatitis, unspecified Category: Medical Plan: Continue Betamethasone Dipropionate 0.05% apply BID PRN (10) Benign prostatic hyperplasia with lower urinary tract symptoms: Code(s): N40.1 - Benign prostatic hyperplasia with lower urinary tract symptoms Category: Medical Qualifiers: Lower urinary tract symptom detail: unspecified Qualified Code(s): N40.1 - Benign prostatic hyperplasia with lower urinary tract symptoms Plan: Follow up with urology (Dr. Rose) as scheduled Patient stopped taking his previous Rx (Terazosin and Finasteride) as he felt that they were not really helping much - notes that his symptoms have not gotten any worse since he stopped taking his previous meds Plan Follow up in 4 months
== END 2024-10-16 10:03 | disposition home or self-care (01) ==
LOC: HO.HMCH 09:16
PROVIDERS: PCP Internal Medicine; Visit Provider Internal Medicine
DX: I25.10 Atherosclerotic heart disease of native coronary artery without angina pectoris (principal); E78.00 Pure hypercholesterolemia, unspecified; I10 Essential (primary) hypertension; J45.20 Mild intermittent asthma, uncomplicated; G47.33 Obstructive sleep apnea (adult) (pediatric); R73.01 Impaired fasting glucose; R74.01 Elevation of levels of liver transaminase levels; E55.9 Vitamin D deficiency, unspecified; L30.9 Dermatitis, unspecified; N40.1 Benign prostatic hyperplasia with lower urinary tract symptoms

== ENCOUNTER → 2024-10-16 09:15 | Outpatient (BNVA) | payer MEDICARE, SELFPAY | PROVIDERS: PCP Internal Medicine; Visit Provider Internal Medicine | DX: I25.10 Atherosclerotic heart disease of native coronary artery without angina pectoris (principal); E78.00 Pure hypercholesterolemia, unspecified; I10 Essential (primary) hypertension; J45.20 Mild intermittent asthma, uncomplicated; G47.33 Obstructive sleep apnea (adult) (pediatric); R73.01 Impaired fasting glucose; R74.01 Elevation of levels of liver transaminase levels; E55.9 Vitamin D deficiency, unspecified; L30.9 Dermatitis, unspecified; N40.1 Benign prostatic hyperplasia with lower urinary tract symptoms | CPT/HCPCS: 96127; 99212 ==

== ENCOUNTER 2025-02-19 06:57 | Outpatient (REF) | payer MEDICARE, SELFPAY ==
--- OUTSIDE RECORDS SUMMARY | 2016-05-05 01:00 | XMS_ITS | Encounter Summary ---
Author Organization [facility] Address [address] [facility] [address] [address] [place] [phone] Phone Care Team Providers Care College Specialist Name Role Phone Unavailable Primary Care Provider Unavailabl e Encounter Details Date Type Department Care Team (Late st Contact Info) Description 05/05/2016 Hospital Encounter [facility] [address] [place] [address] Abdirizak Farmer MD [email or web address] Social History Tobacco Use Types Packs/Day [...] Description 07/18/2025 8:40 AM EST Office Visit [facility] [address], [address] [place] [address] Edwardo Garcia MD [address] [facility], [address] [place] [address] [email or web address] documented as of this encounter Procedures Procedure Name Priority Date/Time Associated Diagnosis Comments [place] CARDIAC OUTSIDE (NO INTERPRETATION) Routine 05/05/2016 12:00 AM EST documented in this encounter Results * [place] Cardiac Outside (No Interpretation) (05/05/2016 12:00 AM EST) Narrative [facility] - 06/30/2016 10:25 AM EST This study is for PACS storage only and not for interpretation. Abdirizak Kauffman-The talat [facility] IMG OUTSIDE IMAGING W/OUT INTERPRETATION Final Result [facility] documented in this encounter Visit Diagnoses Not on filedocumented in this encounter Additional Source Comments The information contained in this document represents components of the legal health record. It is not the complete legal health record.[facility]
--- OUTSIDE RECORDS SUMMARY | 2025-02-19 07:00 | XMS_ITS | Encounter Summary ---
Author Organization [facility] Address [address] [place] [phone] Phone Care Team Providers Care Air Pollution Auditor Name Role Phone Reg Laboy MD Primary Care Provider [phone] Edwardo Yin MD Unavailable [phone] Encounter Details Date Type Department Care Team (Latest Contact Info) Description 06/18/2017 Transcribe Orders [facility] [address] [place] [address] [place] [address] Reg Laboy MD [address] [place] [address] [address] Atherosclerosis of [place] coronary artery of [place] heart without angina pectoris (Primary Dx); Pure hypercholesterolemia; Chronic kidney disease, stage III (moderate); Severely overweight Social History Tobacco Use Types Packs/Day Years Used Date Smoking Tobacco: Never Assessed Sex and Gender Information Value Date Recorded Sex Assigned at Not on file Legal Sex Male 4:41 PM EST Gender Identity Not on file Sexual Orientation Not on file documented as of this encounter Plan of Treatment Upcoming Encounters Date Type Department Care Team (Late st Contact Info) Description 07/18/2025 8:40 AM EST Office Visit [facility] [address] [place] [address] Dr [address] Floor, [address] [place] [address] Edwardo Garcia MD [address], [address] [place] [address] [phone] [email or web address] documented as of this encounter Procedures Procedure Name Priority Date/Time Associated Diagnosis Comments COMPREHENSIVE METABOLIC PANEL Routine 06/18/2017 8:30 AM EST Atherosclerosis of [place] coronary artery of [place] heart without angina pectoris Pure hypercholesterolem ia Chronic kidney disease, stage III (moderate) Severely overweight TSH WITH REFLEX Routine 06/18/2017 8:30 AM EST Atherosclerosis of [place] coronary artery of [place] heart without angina pectoris Pure hypercholesterolem ia Chronic kidney disease, stage III (moderate) Severely overweight 25-OH VITAMIN D Routine 06/18/2017 8:30 AM EST Atherosclerosis of [place] coronary artery of [place] heart without angina pectoris Pure hypercholesterolem ia Chronic kidney disease, stage III (moderate) Severely overweight URINALYSIS Routine 06/18/2017 8:30 AM EST Atherosclerosis of [place] coronary artery of [place] heart without angina pectoris Pure hypercholesterolem ia Chronic kidney disease, stage III (moderate) Severely overweight CBC AND DIFFERENTIAL Routine 06/18/2017 8:30 AM EST Atherosclerosis of [place] coronary artery of [place] heart without angina pectoris Pure hypercholesterolem ia Chronic kidney disease, stage III (moderate) Severely overweight LIPID PANEL Routine 06/18/2017 8:30 AM EST Atherosclerosis of [place] coronary artery of [place] heart without angina pectoris Pure hypercholesterolem ia Chronic kidney disease, stage III (moderate) Severely overweight documented in this encounter Results * 25-OH vitamin D (06/18/2017 8:30 AM EST) 25 [place] VIT D (TOTAL) 37 30 - 1,000 ng/mL [facility] Blood 06/18/2017 8:30 AM EST 06/18/2017 8:33 AM EST us Reg Laboy MD LAB BLOOD ORDERABLES Julia l Result [facility] [address] [place] [address] * Urinalysis (06/18/2017 8:30 AM EST) COLOR Yellow Yellow [facility] CLARITY Clear [facility] GLUCOSE Negative Negative [facility] BILI Negative Negative [facility] KETONES Negative Negative [facility] SPECIFIC GRAVITY 1.020 1.005 - 1.030 [facility] BLOOD Negative Negative [facility] PH 6.5 5.0 - 8.0 [facility] Protein-UA Negative Negative [facility] NITRITE Negative Negative [facility] Leukocyte esterase, ur Negative Negative [facility] Urine (Urine) 06/18/2017 8:3 0 AM EST 06/18/2017 8:35 AM EST Reg Laboy MD URINE ORDERABLES Final Re sult Performing Organization Address City/[facility]/ZIP Co de Phone Number [address] [address] * TSH with reflex (06/18/2017 8:30 AM EST) TSH 2.62 0.27 - 4.20 uIU/mL [facility] Blood 06/18/2017 8:30 AM EST 06/18/2017 8:33 AM EST us Reg Laboy MD LAB BLOOD ORDERABLES Julia l Result Performing Organization Address City/[facility]/ZIP Co de Phone Number [address] [address] * CBC and differential (06/18/2017 8:30 AM EST) WBC 7.02 3.40 - 11.20 K/uL [facility] RBC 4.90 4.50 - 5.50 M/uL [facility] HGB 14.9 13.0 - 17.0 g/dL [facility] HCT 45.1 40.0 - 51.0 % [facility] PLT 219 130 - 400 K/uL [facility] MCV 92.0 79.0 - 98.0 fL [facility] MCH 30.4 27.0 - 34.8 pg [facility] MCHC 33.0 31.5 - 36.0 g/dL [facility] RDW 13.9 10.8 - 14.6 % [facility] MPV 10.0 9.4 - 12.4 fl [facility] NRBC 0.00 /100 WBCs [facility] ABSOLUTE NRBC 0.00 K/uL [facility] DIFF METHOD Auto [facility] NEUTS 61.4 45.30 - 77.70 % [facility] LYMPHS 27.1 12.30 - 39.70 % [facility] MONOS 7.8 4.10 - 12.80 % [facility] EOS 3.0 0 - 7.2 % [facility] BASOS 0.6 0 - 2.80 % [facility] Granulocytes, immature (%) 0.1 0.0 - 0.9 % [facility] ABSOLUTE NEUTS 4.31 1.40 - 7.70 K/uL [facility] ABSOLUTE LYMPHS 1.90 0.60 - 3.20 K/uL [facility] ABSOLUTE MONOS 0.55 0.11 - 0.59 K/uL [facility] ABSOLUTE EOS 0.21 0.01 - 0.50 K/uL [facility] ABSOLUTE BASOS 0.04 0.00 - 0.08 K/uL [facility] Granulocytes, immature 0.01 0.00 - 0.05 K/uL [facility] Blood 06/18/2017 8:30 AM EST 06/18/2017 8:33 AM EST us Reg Laboy MD LAB BLOOD ORDERABLES Julia l Result [facility] [address] [place] [address] * (ABNORMAL) Lipid panel (06/18/2017 8:30 AM EST) HDL 39 mg/dL [facility] Comment: Interpretation: Risk Level Males Decreased >45 mg/dL Average 40-45 mg/dL Increased <40 mg/dL CHOLESTEROL 112 0 - 240 mg/dL [facility] TRIGLYCERIDES 76 30 - 160 mg/dL [facility] LDL 58 50 - 129 mg/dL [facility] Comment: LDL levels in terms of risk for coronary heart disease: <100 mg/dL: Optimal 100-129 mg/dL: Near or above optimal 130-159 mg/dL: Borderline high 160-189 mg/dL: High >190 mg/dL: Very High CARDIAC RISK RATIO 2.9(L) 3.4 - 5.0 [facility] Blood 06/18/2017 8:30 AM EST 06/18/2017 8:33 AM EST us Reg Laboy MD LAB BLOOD ORDERABLES Julia kc Result [facility] [address] [place] [address] * (ABNORMAL) Comprehensive metabolic panel (06/18/2017 8:30 AM EST) SODIUM 139 133 - 146 mmol/L [facility] POTASSIUM 4.1 3.3 - 5.1 mmol/L [facility] CHLORIDE 103 96 - 108 mmol/L [facility] CO2 28 21 - 35 mmol/L [facility] BUN 21(H) 6 - 19 mg/dL [facility] CREATININE 1.10 0.5 - 1.5 mg/dL [facility] GLUCOSE 105(H) 70 - 99 mg/dL [facility] ALBUMIN 4.1 3.9 - 4.8 g/dL [facility] TOTAL PROTEIN 7.2 6.5 - 8.0 g/dL [facility] CALCIUM 8.9 8.4 - 10.3 mg/dL [facility] ALKALINE PHOSPHATASE 69 39 - 117 U/L [facility] TOTAL BILIRUBIN 1.0 0 - 1.2 mg/dL [facility] AST 19 0 - 37 U/L [facility] ALT 33 0 - 40 U/L [facility] GLOBULIN 3.1 1 - 4.8 g/dL [facility] EGFR >60 mL/min/1.7 3m2 [facility] Comment:Abnormal if <60. If patient is -[place], multiply the result by 1.21. ANION GAP 12 10 - 20 mmol/L [facility] Blood 06/18/2017 8:30 AM EST 06/18/2017 8:33 AM EST Reg Laboy MD LAB BLOOD ORDERABLES Julia l Result [address] [address] documented in this encounter Visit Diagnoses Diagnosis Atherosclerosis of [place] coronary artery of [place] heart without angina pectoris- Primary Pure hypercholesterolemia Chronic kidney disease, stage III (moderate) Chronic kidney disease, Stage III (moderate) Severely overweight Morbid obesity documented in this encounter Care Teams Air Pollution Auditor Relationship Specialty Start Date End Date Reg Laboy MD [address] [place] [address] [place] [address] PCP - General Internal Medicine 06/03/16 Edwardo Yin MD [address] [place] [address] [place] [address] [email or web address] Counselor Cardiology 06/22/16 documented as of this encounter Additional Source Comments The information contained in this document represents components of the legal health record. It is not the complete legal health record.[facility]
--- OUTSIDE RECORDS SUMMARY | 2025-02-19 07:00 | XMS_ITS | Encounter Summary ---
Author Organization [facility] Address [address] [place] [address] Phone Care Team Providers Care Cheesemaking Laborer Name Role Phone Reg Laboy MD Primary Care Provider [phone] Edwardo Yin MD Unavailable [phone] Encounter Details Date Type Department Care Team (Latest Contact Info) Description 10/21/2017 Transcribe Orders [facility] [address] [place] [address] [place] [address] Reg Laboy MD [address] [place] [address] [address] Essential hypertension, benign (Primary Dx); Hyperlipidemia, unspecified hyperlipidemia type; Disease of cardiovascular system; Avitaminosis D Social History Tobacco Use Types Packs/Day Years [...] Description 07/18/2025 8:40 AM EST Office Visit [facility] [address], [address] [place] [address] Edwardo Garcia MD [address] [facility], [address] [place] [address] [phone] documented as of this encounter Results * (ABNORMAL) Urine sediment (10/21/2017 8:58 AM EDT) WBC 0-4(A) NONE SEEN /hpf [facility] RBC 0-2(A) NONE SEEN /hpf [facility] URINE EPITHELIAL 11-20(A) NONE SEEN [facility] MUCUS NONE SEEN NONE SEEN /hpf [facility] BACTERIA Trace(A) NONE SEEN [facility] Urine (Urine) 10/21/2017 8:5 8 AM EDT 10/21/2017 9:00 AM EDT us Reg Laboy MD URINE ORDERABLES Final Re sult Performing Organization Address [facility]/ZIP Co de Phone Number [address] [address] * TSH with reflex (10/21/2017 8:53 AM EDT) TSH 3.07 0.27 - 4.20 uIU/mL [facility] Blood 10/21/2017 8:53 AM EDT 10/21/2017 8:57 AM EDT us Reg Laboy MD LAB BLOOD ORDERABLES Julia l Result Performing Organization Address [facility]/ZIP Co de Phone Number [address] [address] * 25-OH vitamin D (10/21/2017 8:53 AM EDT) 25 OH VIT D (TOTAL) 39 30 - 1,000 ng/mL [facility] Blood 10/21/2017 8:53 AM EDT 10/21/2017 8:57 AM EDT us Reg Laboy MD LAB BLOOD ORDERABLES Julia l Result Performing Organization Address [facility]/ZIP Co de Phone Number [address] [address] * (ABNORMAL) CBC and differential (10/21/2017 8:53 AM EDT) WBC 7.07 3.40 - 11.20 K/uL [facility] RBC 4.81 4.50 - 5.50 M/uL [facility] HGB 14.8 13.0 - 17.0 g/dL [facility] HCT 44.6 40.0 - 51.0 % [facility] PLT 200 130 - 400 K/uL [facility] MCV 92.7 79.0 - 98.0 fL [facility] MCH 30.8 27.0 - 34.8 pg [facility] MCHC 33.2 31.5 - 36.0 g/dL [facility] RDW 14.2 10.8 - 14.6 % [facility] MPV 10.5 9.4 - 12.4 fl [facility] NRBC 0.00 /100 WBCs [facility] ABSOLUTE NRBC 0.00 K/uL [facility] DIFF METHOD Auto [facility] NEUTS 53.8 45.30 - 77.70 % [facility] LYMPHS 32.0 12.30 - 39.70 % [facility] MONOS 9.2 4.10 - 12.80 % [facility] EOS 4.0 0 - 7.2 % [facility] BASOS 0.7 0 - 2.80 % [facility] Granulocytes, immature (%) 0.3 0.0 - 0.9 % [facility] ABSOLUTE NEUTS 3.81 1.40 - 7.70 K/uL [facility] ABSOLUTE LYMPHS 2.26 0.60 - 3.20 K/uL [facility] ABSOLUTE MONOS 0.65(H) 0.11 - 0.59 K/uL [facility] ABSOLUTE EOS 0.28 0.01 - 0.50 K/uL [facility] ABSOLUTE BASOS 0.05 0.00 - 0.08 K/uL [facility] Granulocytes, immature 0.02 0.00 - 0.05 K/uL [facility] Blood 10/21/2017 8:53 AM EDT 10/21/2017 8:57 AM EDT us Reg Laboy MD LAB BLOOD ORDERABLES Julia l Result [address] [address] * (ABNORMAL) Lipid panel (10/21/2017 8:53 AM EDT) HDL 40 mg/dL [facility] Comment: Interpretation: Risk Level Males Decreased >45 mg/dL Average 40-45 mg/dL Increased <40 mg/dL CHOLESTEROL 106 0 - 240 mg/dL [facility] TRIGLYCERIDES 83 30 - 160 mg/dL [facility] LDL 49(L) 50 - 129 mg/dL [facility] Comment: LDL levels in terms of risk for coronary heart disease: <100 mg/dL: Optimal 100-129 mg/dL: Near or above optimal 130-159 mg/dL: Borderline high 160-189 mg/dL: High >190 mg/dL: Very High CARDIAC RISK RATIO 2.7(L) 3.4 - 5.0 [facility] Blood 10/21/2017 8:53 AM EDT 10/21/2017 8:57 AM EDT Reg Laboy MD LAB BLOOD ORDERABLES Julia l Result [address] [address] * (ABNORMAL) Comprehensive metabolic panel (10/21/2017 8:53 AM EDT) SODIUM 142 133 - 146 mmol/L [facility] POTASSIUM 4.3 3.3 - 5.1 mmol/L [facility] CHLORIDE 103 96 - 108 mmol/L [facility] CO2 27 21 - 35 mmol/L [facility] BUN 18 6 - 19 mg/dL [facility] CREATININE 1.10 0.5 - 1.5 mg/dL [facility] GLUCOSE 107(H) 70 - 99 mg/dL [facility] ALBUMIN 4.1 3.9 - 4.8 g/dL [facility] TOTAL PROTEIN 7.2 6.5 - 8.0 g/dL [facility] CALCIUM 9.1 8.4 - 10.3 mg/dL [facility] ALKALINE PHOSPHATASE 76 39 - 117 U/L [facility] TOTAL BILIRUBIN 0.9 0.0 - 1.2 mg/dL [facility] AST 22 0 - 37 U/L [facility] ALT 39 0 - 40 U/L [facility] GLOBULIN 3.1 1 - 4.8 g/dL [facility] EGFR 66 >59 mL/min/1.7 3m2 [facility] Comment:If patient is black, multiply result by 1.159. The eGFR calculation has changed from the MDRD equation to the CKD-EPI equation as of August 03, 2017. ANION GAP 16 10 - 20 mmol/L [facility] Blood 10/21/2017 8:53 AM EDT 10/21/2017 8:57 AM EDT Reg Laboy MD LAB BLOOD ORDERABLES Julia l Result Performing Organization Address City/State/[facility] Co de Phone Number [address] [address] documented in this encounter Visit Diagnoses Diagnosis Essential hypertension, benign- Primary Hyperlipidemia, unspecified hyperlipidemia type Disease of cardiovascular system Unspecified cardiovascular disease Avitaminosis D Unspecified vitamin D deficiency documented in this encounter Care Teams Cheesemaking Laborer Relationship Specialty Start Date End Date Reg Laboy MD [address] [place] [address] [place] [address] PCP - General Internal Medicine 06/03/16 Edwardo Yin MD [address] [place] [address] [place] [address] [email or web address] Holloware Assembler Cardiology 06/22/16 documented as of this encounter Additional Source Comments The information contained in this document represents components of the legal health record. It is not the complete legal health record.[facility]
--- OUTSIDE RECORDS SUMMARY | 2025-02-19 07:00 | XMS_ITS | Encounter Summary ---
Author Organization [facility] Address [address] [place] [address] Phone Care Team Providers Care Sales And Marketing Director Name Role Phone Reg Laboy MD Primary Care Provider [phone] Edwardo Yin MD Unavailable [phone] Encounter Details Date Type Department Care Team (Latest Contact Info) Description 05/11/2017 Transcribe Orders [facility] [address] [place] [address] Edwardo Yin MD [address] [address] [email or web address] CVD (cardiovascular disease) (Primary Dx) Social History Tobacco Use Types Packs/Day Years [...] Description 07/18/2025 8:40 AM EST Office Visit [facility] [address] [facility] 3rd [address], [address] [place] [address] Edwardo Garcia MD [address] [address] documented as of this encounter Results * Basic metabolic panel (05/11/2017 9:20 AM EST) SODIUM 141 133 - 146 mmol/L [facility] CHLORIDE 104 96 - 108 mmol/L [facility] POTASSIUM 4.2 3.3 - 5.1 mmol/L [facility] CO2 26 21 - 35 mmol/L [facility] BUN 17 6 - 19 mg/dL [facility] CREATININE 0.90 0.5 - 1.5 mg/dL [facility] GLUCOSE 91 70 - 99 mg/dL [facility] CALCIUM 8.8 8.4 - 10.3 mg/dL [facility] EGFR >60 mL/min/1.7 3m2 [facility] Comment:Abnormal if <60. If patient is -I[place]ic, multiply the result by 1.21. ANION GAP 15 10 - 20 mmol/L [facility] Blood 05/11/2017 9:20 AM EST 05/11/2017 9:22 AM EST us Edwardo Yin MD LAB BLOOD ORDERABLES Final Resu lt [facility] [address] [place] [address] * LFTs (hepatic panel) (05/11/2017 9:20 AM EST) ALKALINE PHOSPHATASE 72 39 - 117 U/L [facility] TOTAL BILIRUBIN 0.8 0 - 1.2 mg/dL [facility] DIRECT BILIRUBIN <0.2 0 - 0.3 mg/dL [facility] Bilirubin (Indirect) NOT CALCULATED 0 - 1.5 mg/dL [facility] AST 17 0 - 37 U/L [facility] ALT 31 0 - 40 U/L [facility] TOTAL PROTEIN 6.9 6.5 - 8.0 g/dL [facility] ALBUMIN 4.1 3.9 - 4.8 g/dL [facility] GLOBULIN 2.8 1 - 4.8 g/dL [facility] A/G Ratio 1.46 1.00 - 4.80 RATIO [facility] Blood 05/11/2017 9:20 AM EST 05/11/2017 9:22 AM EST us Edwardo Yin MD LAB BLOOD ORDERABLES Final Resu lt Performing Organization Address [facility]/ZIP Co de Phone Number [address] [address] * (ABNORMAL) Lipid panel (05/11/2017 9:20 AM EST) HDL 33 mg/dL [facility] Comment: Interpretation: Risk Level Males Decreased >45 mg/dL Average 40-45 mg/dL Increased <40 mg/dL CHOLESTEROL 87 0 - 240 mg/dL [facility] TRIGLYCERIDES 70 30 - 160 mg/dL [facility] LDL 40(L) 50 - 129 mg/dL [facility] Comment: LDL levels in terms of risk for coronary heart disease: <100 mg/dL: Optimal 100-129 mg/dL: Near or above optimal 130-159 mg/dL: Borderline high 160-189 mg/dL: High >190 mg/dL: Very High CARDIAC RISK RATIO 2.6(L) 3.4 - 5.0 [facility] Blood 05/11/2017 9:20 AM EST 05/11/2017 9:22 AM EST us Edwardo Yin MD LAB BLOOD ORDERABLES Final Resu lt Performing Organization Address [facility] Co de Phone Number [address] [address] documented in this encounter Visit Diagnoses Diagnosis CVD (cardiovascular disease)- Primary Unspecified cardiovascular disease documented in this encounter Care Teams Sales And Marketing Director Relationship Specialty Start Date End Date Reg Laboy MD [address] [place] [address] [place] [address] PCP - General Internal Medicine 06/03/16 Edwardo Yin MD [address] [place] [address] [place] [address] [email or web address] Poured Pipe Maker Cardiology 06/22/16 documented as of this encounter Additional Source Comments The information contained in this document represents components of the legal health record. It is not the complete legal health record.[facility]
--- OUTSIDE RECORDS SUMMARY | 2025-02-19 07:02 | XMS_ITS | Clinical Summary ---
Author Organization [facility] Address [address] [address] Phone Care Team Providers Care Fruit Inspector Name Role Phone Reg Laboy MD Primary Care Provider [phone] Edwardo Yin MD Unavailable [phone] Allergies Active Allergy Reactions Criticality Noted Date Comments Cefazolin Hives 06/30/2016 Cephalosporins Hives 06/30/2016 Clindamycin Hcl 06/30/2016 Constipation Medications aspirin 81 MG EC tablet Take 81 mg by mouth daily. Active cholecalciferol (VITAMIN D3) 25 MCG (1,000 unit) tablet Take 1 tablet by mouth every morning. 4 Active atorvastatin (LIPITOR) 80 MG tabletIndications :Medication refill TAKE ONE TABLET BY MOUTH EVERY DAY 90 tablet 3 5 Active amLODIPine (NORVASC) 5 MG tabletIndications :Essential hypertension TAKE ONE TABLET BY MOUTH EVERY MORNING 90 tablet 3 5 Active lisinopril (PRINIVIL,ZESTRIL ) 40 MG tabletIndications :Atherosclerosis of [place] coronary artery of [place] heart without angina pectoris TAKE ONE TABLET BY MOUTH EVERY DAY 90 tablet 3 5 Active Active Problems Problem Noted Date Diagnosed Date Bradycardia 01/15/2025 Assessment & Plan (01/15/2025 10:04 AM EDT): Asymptomatic sinus bradycardia. He was recommended a Holter monitor after his heart rate during stress testing recently was found to be only in the 40s on no AV elkin dc. Monitor showed 83% bradycardia burden with an average heart rate 53 bpm. Continue to monitor. Mitral valve insufficiency 03/02/2023 Assessment & Plan (01/15/2025 10:01 AM EDT): Most recent echo 08/2023 shows Trace to mild mitral and tricuspid insufficiency. Patient remains euvolemic, asymptomatic, continue serial echoes. Assessment & Plan (09/28/2023 10:16 AM EDT): Most recent echo 08/2023 shows Trace to mild mitral and tricuspid insufficiency. Patient remains euvolemic, asymptomatic, continue serial echoes. Assessment & Plan (03/02/2023 9:29 AM EDT): Moderate MR on echo in July,. Will repeat echocardiogram in the spring prior to follow up with Dr Garcia. Pain and swelling of knee, left 02/06/2019 Atherosclerosis of [place] co ronary artery of [place] heart without angina pectoris 05/17/2017 Overview (05/17/2017): 08/2016 CABG X 4 PRIETO-LAD; RAD-OM2; SVG-PDA; SVG dRCA JF Assessment & Plan (01/15/2025 10:00 AM EDT): Hx CAD s/p CABG x 4 with PRIETO-LAD; RAD-OM2; SVG-PDA; SVG dRCA in 2016. He has historically done well since. He had an isolated episode of what he thought was angina reminiscent to prior to his CABG last year for which a stress test was updated 03/2024 and showed normal perfusion. He has had no recurrence of this symptom and denies any angina or exertional limitation today. He will remain on aspirin lifelong. Continue to optimize cardiovascular risk factors, BP and lipids as below. Could consider uptitrating amlodipine in the future to try to optimize his antianginal therapy. Will continue current medications and doses for now as he is completely asymptomatic and generally active. Follow-up in 6 months with client support consultant. Assessment & Plan (07/10/2024 9:36 AM EST): Continues to do well from a cardiovascular standpoint denying symptoms. He is on aspirin 81 mg daily, amlodipine 5 mg daily, lisinopril 40 mg daily and atorvastatin 80 mg daily. He will continue his medication without change. He is encouraged follow heart healthy diet including low-sodium and exercise. LDL goal less than 70 mg/dL. Assessment & Plan (09/28/2023 10:09 AM EDT): Hx CAD s/p CABG x 4 with PRIETO-LAD; RAD-OM2; SVG-PDA; SVG dRCA in 2017. He has historically done well since. He denies any symptoms concerning for angina at this time. He will remain on aspirin lifelong. Continue to optimize cardiovascular risk factors, BP and lipids as below. We will see him back in 6 months time. Assessment & Plan (03/02/2023 9:29 AM EDT): Denies concerning exertional symptoms. Prior to bypass in 2016, he was experiencing significant chest pain and shortness of breath on exertion. These symptoms have never recurred. We will continue to optimize his cardiovascular risk factors. He is active and does not smoke. BP under good control. He will remain on 81 mg aspirin indefinitely. Continue atorvastatin with LDL goal < 70 mg/dL. Assessment & Plan (12/31/2021 9:42 AM EDT): Continues to be asymptomatic. He will remain on aspirin 81 mg lifelong, amlodipine 5 mg daily, lisinopril 40 mg daily and atorvastatin 80 mg daily. He should follow a healthy diet, including low-sodium. We will continue to optimize his cardiac risk factors. Assessment & Plan (05/12/2021 9:19 AM EST): Coronary artery disease s/pCABG in 2017. He is asymptomatic at this time. He is on aspirin 81 mg daily which he should remain on lifelong. He was encouraged to follow a heart healthy diet and to control his cardiac risk factors. Repeat echocardiogram that was previously scheduled in March was canceled by the patient had not been rescheduled. He was encouraged to strongly get his echocardiogram repeated and we will follow up with a televisit to discuss those results. Otherwise he can follow-up in 6 months. Assessment & Plan (04/07/2021 8:46 AM EST): He had coronary artery bypass grafting in 2017. He is doing well with no chest pain or any other symptoms concerning for ischemia. Continue aspirin. Assessment & Plan (05/17/2019 9:47 AM EST): Doing well. Encouraged to begin a regular exercise program. Assessment & Plan (01/26/2019 2:09 PM EDT): He is denying chest pain or symptoms concerning for angina. He will continue on aspirin 81 mg daily. He is tolerating his reduced dose of metoprolol succinate 12.5 mg daily. No shortness of breath. Assessment & Plan (11/15/2018 9:34 AM EDT): No significant symptoms. I am given consent to decrease his metoprolol to a half dose for a week and then to discontinue it although he will need to check his blood pressure after several weeks. I told him to give it about 2 to 3 weeks after stopping it and if his symptoms have failed to improve to restart it but the let us know either way. Assessment & Plan (05/16/2018 9:25 AM EST): Doing well. Again encouraged to be more active at least on a regular basis. Assessment & Plan (11/16/2017 9:34 AM EDT): Doing well 1 year out. I've encouraged him to be more physically active on a regular basis. Assessment & Plan (05/17/2017 11:14 AM EST): Continuing to do well. I've encouraged him to develop his own exercise program and to begin to follow his blood pressures at home. He may need to come in to have his machine calibrated. Hyperlipidemia 06/30/2016 Assessment & Plan (01/15/2025 10:01 AM EDT): Most recent LDL 50. LDL at goal <55 on atorvastatin 80 mg daily which patient is tolerating well. Assessment & Plan (07/10/2024 9:37 AM EST): Continue atorvastatin 80 mg daily. Assessment & Plan (09/28/2023 10:14 AM EDT): Most recent LDL 50. LDL at goal <55 on atorvastatin 80 mg daily which patient is tolerating well. Assessment & Plan (03/02/2023 9:29 AM EDT): See above. Continue atorvastatin with LDL goal < 70 mg/dL. Assessment & Plan (12/31/2021 9:43 AM EDT): He recently had his lipid profile checked at his primary care's to [facility]. He will remain on atorvastatin 80 mg daily. I do not have those labs to review today but we will request them. Assessment & Plan (04/07/2021 8:47 AM EST): His lipids have been excellent on his current dose of atorvastatin. Assessment & Plan (05/17/2019 9:48 AM EST): Recent profile is excellent with an LDL in the 50s and HDL in the 40s. Renal and hepatic function remain normal. Assessment & Plan (01/26/2019 2:09 PM EDT): Lipids well controlled on current regimen, continue atorvastatin 80 mg daily. Assessment & Plan (11/15/2018 9:34 AM EDT): Profile is fine. LDL of 60 and HDL of 40. Assessment & Plan (05/16/2018 9:25 AM EST): Recent labs are fine including renal and hepatic function. LDL now in the high 40s. Assessment & Plan (11/16/2017 9:34 AM EDT): Numbers are excellent. LDL in the 40s and this is HDL. Assessment & Plan (05/17/2017 11:15 AM EST): Recent labs include an LDL of 40 with an HDL of 33 and triglycerides 70. Hepatic and metabolic profiles remain benign. Hypertension 06/30/2016 Assessment & Plan (01/15/2025 10:01 AM EDT): At goal in the office today on amlodipine 5 mg daily and lisinopril 40 mg daily which he is taking daily without side effects to report. He gets his labs through PCP office at [facility]. Trying to follow a low-sodium diet and generally remaining active. Continue lifestyle measures. Continue to monitor. Assessment & Plan (07/10/2024 9:37 AM EST): Blood pressure is little elevated today 142/76. Have asked him to continue monitoring blood pressures at home looking for blood pressure greater than 130/80. SBP goal less than 130/80. Amlodipine 5 mg daily, lisinopril 40 mg daily. Blood pressure continues to be elevated we will increase his amlodipine. Assessment & Plan (09/28/2023 10:11 AM EDT): BP mildly elevated in the office today 140/78 my check. Patient states compliance with amlodipine 5 mg and lisinopril 40 mg daily without any ADRs to report. Discussed increasing amlodipine from 5 to 7.5 mg daily, however, patient declines any med changes today and would like to work on lifestyle modifications. Recommend ongoing low-sodium diet and increasing exercise. He does not smoke. Patient states he has previously checked blood pressures at home with a wrist cuff, but stopped doing this due to immense fluctuations/unreliability. Will see patient back in 6 months time and consider increasing meds if still above goal 130/80. Assessment & Plan (03/02/2023 9:25 AM EDT): BP well controlled. Continue above medications at current doses. Assessment & Plan (12/31/2021 9:41 AM EDT): Blood pressure is elevated today 170/86 and was rechecked for 148/80. He is on amlodipine 5 mg daily and lisinopril 40 mg daily. He is asked to follow heart healthy diet including low sodium and to continue exercising. If his blood pressures remain elevated we will likely need to go up on his amlodipine to 10 mg daily. He will continue checking blood pressures at home. SBP goal less than 120/80. Assessment & Plan (05/12/2021 9:18 AM EST): Blood pressures continue to be mildly elevated at 138/62. He does have coronary artery disease BP goal is less than 130/80. He came to the office today thinking that he perhaps did not need additional antihypertensive medication amlodipine 5 mg daily for his blood pressure stating that his blood pressures when he checks them in the morning are always greater than when he checks them in the afternoon. He does state his blood pressures have been running 130/65 despite medications in the afternoon. He was recommended that he continue to take amlodipine 5 mg daily in addition to lisinopril 40 mg daily for his blood pressure medication. Assessment & Plan (04/07/2021 8:47 AM EST): He has elevated blood pressures when he checks in the morning with systolics around 140-150 systolic. However, when he checks his blood pressure in the afternoon his blood pressures are low with systolics in the 100-120 range. I did not add any new medications. I have suggested that he change the timing of his medications. He would like to try some different times on his own and check blood pressures. We will meet again in 6 weeks to reassess. Assessment & Plan (03/06/2021 8:42 AM EDT): Blood pressure remains elevated at 150/70 here in the office. He does bring his blood pressure log which shows for the majority his blood pressure is running 140-150 systolic. He states he has not consuming a lot of sodium however he was drinking 4 beers daily though he is supposed to be limited to 2. I have asked him to cut back on his alcohol use. I have also asked him to be more cognizant of what sodium is in his foods. Given his blood pressure has not changed much over the past 2 months we will increase his lisinopril to 40 mg daily today. I have asked him to continue monitoring his blood pressures at home and bring the log with him when he comes back for a 4-week follow-up visit to check his blood pressure. Assessment & Plan (05/17/2019 9:48 AM EST): Mildly elevated today. He is going to obtain a new blood pressure monitor and begin to measure this primarily before bedtime. I have suggested if he is consistently over 130 but I would push his lisinopril to 20 mg. He promises to let me know. Assessment & Plan (01/26/2019 2:09 PM EDT): Blood pressure well controlled the office today on current regimen, continue lisinopril 10 mg daily and metoprolol succinate 12.5 mg daily. Assessment & Plan (11/15/2018 9:34 AM EDT): Controlled on present therapy. Will need recheck after discontinuing his metoprolol. Assessment & Plan (05/16/2018 9:25 AM EST): Borderline today. He will continue to monitor. No changes for now. Assessment & Plan (11/16/2017 9:35 AM EDT): Remains mildly elevated. Because of his postural lightheadedness I have decrease his metoprolol to 25 mg but increase his lisinopril to 10 mg. He will follow his blood pressure after about a week. Assessment & Plan (05/17/2017 11:15 AM EST): Borderline control today. He will monitor and if needed we can push his lisinopril to 10. Encounters Date Type Department Care Team Description 01/15/2025 9:30 AM EDT Office Visit [facility] [address], [address] [place] [address] Vi Jones PA-C Atherosclerosis of [place] coronary artery of [place] heart without angina pectoris (Primary Dx); Primary hypertension; Pure hypercholesterolemia; Mitral valve insufficiency, unspecified etiology; Bradycardia 12/04/2024 Refill [facility] [address], [address] [place] [address] Edwardo Garcia MD Medication Refill 11/20/2024 Refill [facility] [address], [address] [place] [address] Edwardo Garcia MD Medication Refill from Last 3 Months Immunizations Immunization Administration Dates Next Due Influenza High-Dose Trivalen t Preservative Free IM 02/28/2018,03/10/2017,05/29/2016 Influenza Quadrivalent Preservative Free IM 04/30,04/21/2022,04/08/2021 Pneumococcal polysaccharide PPSV23 11/08/2018 Social History Tobacco Use Types Packs/Day Years [...] on file Sexual Orientation Not on file Last Filed Vital Signs Vital Sign Reading Time Taken Comments Blood Pressure 130/62 01/15/2025 9:12 AM EDT Pulse 63 01/15/2025 9:12 AM EDT Temperature 36.7 C (98.1 F) 10/11/2023 2:33 PM EDT Respiratory Rate 18 10/11/2023 2:33 PM EDT Oxygen Saturation 96% 01/15/2025 9:12 AM EDT Inhaled Oxygen Concentration - - Weight 78.9 kg (174 lb) 01/15/2025 9:12 AM EDT Height 177 cm (5' 9.69 ) 01/15/2025 9:12 AM EDT Body Mass Index 25.19 01/15/2025 9:12 AM EDT Plan of Treatment Upcoming Encounters Date Type Department Care Team (Late st Contact Info) Description 07/18/2025 8:40 AM EST Office Visit [facility] [address] [place] [address] [address] Floor, [address] [place] [address] Edwardo Garcia MD 22 [facility], [address] [place] [id number] [email or web address] Health Maintenance Due Date Last Done Comments Adult Td,Tdap Booster 1945 DEPRESSION SCREENING 1956 ZOSTER VACCINES (1 of 2) 1994 RSV VACCINE (1 - 1-dose 75+ series) 2019 PNEUMOCOCCAL VACCINES (50+ years) (2 of 2 - PCV) 11/09/2019 11/08/2018 CREATININE LEVEL 11/14/2020 11/15/2019, 03/2019, 07/05/2018, Additional history exists POTASSIUM LEVEL 11/14/2020 11/15/2019, 04/30, 07/05/2018, Additional history exists INFLUENZA VACCINE (#1) 2024 , 04/21/2022, 04/08/2021, Additional history exists COVID-19 VACCINE ( season) 2025 12/05/2021, 06/24/2021, 07/30/2020, Additional history exists BLOOD PRESSURE 07/18/2025 01/15/2025 SMOKING Hx and SMOKELESS TOBACCO SCREENING 01/15/2026 01/15/2025 HEPATITIS A VACCINES Aged Out No long er eligible based on patient's age to complete this topic HIB VACCINES Aged Out No longer eligi ble based on patient's age to complete this topic MENINGOCOCCAL VACCINES (ACWY) Aged Out No longer eligible based on patient's age to complete this topic MENINGOCOCCAL VACCINES (B) Aged Out N o longer eligible based on patient's age to complete this topic Medical Devices Not on file Procedures Procedure Name Priority Date/Time Associated Diagnosis Comments BASIC METABOLIC PANEL Routine 11/15/2019 9:14 AM EDT Pure hypercholesterolemia from Last 3 Months or Most Recently Relevant to Health Maintenance Results * (ABNORMAL) Basic metabolic panel (11/15/2019 9:14 AM EDT) SODIUM 139 133 - 146 mmol/L [facility] CHLORIDE 104 96 - 108 mmol/L [facility] POTASSIUM 4.6 3.3 - 5.1 mmol/L [facility] CO2 25 21 - 35 mmol/L [facility] BUN 19 6 - 19 mg/dL [facility] CREATININE 0.90 0.5 - 1.5 mg/dL [facility] GLUCOSE 103(H) 70 - 99 mg/dL [facility] CALCIUM 9.4 8.4 - 10.3 mg/dL [facility] EGFR 83 >59 mL/min/1.7 3m2 [facility] Comment:If patient is black, multiply result by 1.159. Estimated glomerular filtration rate calculated using the CKD-EPI equation. ANION GAP 15 10 - 20 mmol/L [facility] Blood 11/15/2019 9:14 AM EDT 11/15/2019 9:17 AM EDT us Edwardo Yin MD LAB BLOOD ORDERABLES Final Resu lt [facility] [address] [place] [address] from Last 3 Months or Most Recently Relevant to Health Maintenance Insurance MEDICARE PART A & B [employer] MEDEX SUPPLEMENT MEDICARE PART A & B [facility] MEDEX SUPPLEMENT MEDICARE PART A & B [employer] MEDEX SUPPLEMENT MEDICARE PART A & B [employer] MED[employer] SUPPLEMENT MEDICARE PART A & B [employer] MEDEX SUPPLEMENT MEDICARE PART A & B [employer] MEDEX SUPPLEMENT MEDICARE PART A & B [employer] MEDEX SUPPLEMENT MEDICARE PART A & B [employer] MEDEX SUPPLEMENT MEDICARE PART A & B [facility] MEDEX SUPPLEMENT Care Teams Fruit Inspector Relationship Specialty Start Date End Date Reg Laboy MD [address] [place] [address] [place] [id number] PCP - General Internal Medicine 06/03/16 Edwardo Yin MD [address] [place] [address] [place] [id number] [email or web address] Plastic Zipper Cardiology 06/22/16 Additional Source Comments The information contained in this document represents components of the legal health record. It is not the complete legal health record.[facility] Ricki
--- OUTSIDE RECORDS SUMMARY | 2025-02-19 07:02 | XMS_ITS | Encounter Summary ---
Author Organization [facility] Address [address] [address] Phone Care Team Providers Care Modeling Instructor Name Role Phone Reg Laboy MD Primary Care Provider [phone] Edwardo Yin MD Unavailable [phone] Encounter Details Date Type Department Care Team (Late st Contact Info) Description 03/02/2023 Procedure Pass Echo [facility] [place] [address] Social History Tobacco Use Types Packs/Day Years [...] Description 07/18/2025 8:40 AM EST Office Visit [facility] [address] [place] [address] [address] Floor, [address] [place] [address] Edwardo Garcia MD 22 [facility], [address] [place] [address] [email or web address] documented as of this encounter Visit Diagnoses Not on filedocumented in this encounter Care Teams Modeling Instructor Relationship Specialty Start Date End Date Reg Laboy MD [address] [place] [address] Dr Royal [address] [place] [id number] PCP - General Internal Medicine 06/03/16 Edwardo Yin MD [address] [place] [address] Dr [address] [place] [id number] [email or web address] Drafting Machine Operator Cardiology 06/22/16 documented as of this encounter Additional Source Comments The information contained in this document represents components of the legal health record. It is not the complete legal health record.[facility]
--- OUTSIDE RECORDS SUMMARY | 2025-02-19 07:02 | XMS_ITS | Encounter Summary ---
Author Organization [facility] Address [address] [address] Phone Care Team Providers Care Graphic Manager Name Role Phone Reg Laboy MD Primary Care Provider [phone] Edwardo Yin MD Unavailable [phone] Reason for Referral * MRI/CAT Scan - Closed Specialty Diagnoses / Procedures Referred By Evan gaston Referred To Contact Radiology Diagnoses Stable angina pectoris Procedures NC Myocardial Perfusion Pharmacologic Stress Multiple NC Myocardial Perfusion Exercise Multiple Edwardo Garcia MD Phone: tel: fax: mailto:[email or web address] Referral ID Status Reason Start Date Expiration Date Visits Re quested Visits Authorized [id number] Closed 04/05/2024 1 1 Encounter Details Date Type Department Care Team (Latest Contact Info) Description 04/20/2024 Ancillary Orders [facility] [address] [place] [address] 3rd Floor, [address] [place] [address] Edwardo Garcia MD 22 [facility], [address] [id number] [email or web address] Atherosclerosis of [place] coronary artery of [place] heart without angina pectoris (Primary Dx); Primary hypertension; Pure hypercholesterolemia; Stable angina pectoris Social History Tobacco Use Types Packs/Day Years [...] Description 07/18/2025 8:40 AM EST Office Visit [facility] [address] [place] [address] [address] Floor, [address] [place] [address] Edwardo Garcia MD 22 [facility], [address] [address] [email or web address] documented as of this encounter Results * NC Myocardial Perfusion Pharmacologic Stress Multiple (04/20/2024 9:35 AM EST) Max Predicted Heart Rate 140 bpm Stress/rest perfusion ratio 1.03 Nuc Stress EF 63 % SNMDIAVOL 139.0 mL SNMSYSVOL 52.0 mL Nuc Rest EF 64 % RNMDIAVOL 121.0 mL RNMSYSVOL 44.0 mL Anatomical Region Laterality Modality Heart, Vascular Ultrasound Narrative 04/20/2024 4:45 PM EST Myocardial perfusion stress test imaging report-normal No significant myocardial perfusion defects were seen at stress and at rest images Normal left ventricular systolic function. LV EF is 63% Conclusion; No ischemia or infarction seen Normal left ventricular systolic function. Stress Findings NUCLEAR REPORT: TYPE OF STUDY: Myocardial Perfusion Imaging after a Sitting Regadenoson protocol with gated SPECT. PROTOCOL USED: One day Regadenoson rest-stress protocol in the supine and prone position. Images were obtained in gated tomographic technique. Images were processed in SPECT format, reconstructed tomographically and compared [id number] in short axis, horizontal long axis and vertical long axis. DOSE: Technetium 99m Sestamibi 7.2 mCi injected intravenously in the right arm antecubital vein at rest on 04/20/2024 with post injection scan time of 60 minutes. Technetium 99m Sestamibi 21.8 mCi injected intravenously in the right arm antecubital vein after Regadenoson infusion on 04/20/2024 with post injection scan time of 40 minutes. Overall image quality is good. Diaphragmatic attenuation is present. No motion artifact is present. ECG STRESS REPORT: SITTING REGADENOSON STUDY BMI: 26.11 The Nuclear Stress Test was performed as a pharmacological test due the presence of a left bundle branch block. Adis Lea received 0.4 mg of Regadenoson while sitting on a chair. Regadenoson was given IV push over 10 seconds as per protocol by Katia Bower (JOSEFA), immediately followed by injection of Tc99m Sestamibi by Ming Martinez, the non licensed nuclear equipment operator. 1. EKG - Baseline EKG showed sinus bradycardia with a first degree AV block and left bundle branch block. After injection of Lexiscan, EKGs were non-diagnostic for ischemia. 2. SYMPTOMS - Patient reported mild shortness of breath after injection of Lexiscan which resolved without intervention in the recovery period. 3. PHYSIOLOGY - Resting heart rate was 51 bpm. After Lexiscan injection, heart rate 84 bpm (60% MPHR). 4. ARRHYTHMIAS - Fairly bradycardic at rest. Conclusion - EKGs are non-diagnostic for ischemia. No chest pain reported throughout testing. Nuclear images pending and will be reported separately. See attached stress report for full details. Katia Bower NP Stress Function Defect Left ventricular global function is normal during stress. Stress ejection fraction is 63%. The stress end diastolic cavity size is normal. Stress end diastolic size: 139.0 mL. The stress end systolic cavity size is normal. Stress end systolic size: 52.0 mL. Rest Function Defect Left ventricular global function is normal at rest. Resting ejection fraction was 64%. The rest end diastolic cavity size is normal. Rest end diastolic size: 121.0 ml. The rest end systolic cavity size is normal. Rest end systolic size: 44.0 mL. Nuclear Prior Study There is no prior study available for comparison. Nuclear Ancillary Finding There is no evidence of transient ischemic dilation (TID). The TID ratio is 1.03, which is normal. Perfusion Scoring Resting Summed Score: 10 Percent Normal: 14.71% Moderate count reduction in the following segments: basal inferolateral, mid anteroseptal and apical septal. Mild count reduction in the following segments: mid inferoseptal, apical anterior, apical inferior and apex. All other segments are normal. SUPINE IMAGING REST Perfusion Scoring Stress Summed Score: 2 Percent Normal: 2.94% Moderate count reduction in the following segments: apical septal. All other segments are normal. PRONE IMAGING STRESS Perfusion Scores: SRS Score: 10 Percentage Abnormal: 14.71% Perfusion Scores: SSS Score: 2 Percentage Abnormal: 2.94% Perfusion Scores: SDS Score: N/A Percentage Abnormal: N/A Procedure Note Roe Mckay MD - 04/20/2024 Myocardial perfusion stress test imaging report-normal No significant myocardial perfusion defects were seen at stress and atrest images Normal left ventricular systolic function. LV EF is 63% Conclusion; No ischemia or infarction seen Normal left ventricular systolic function. us Edwardo Garcia MD CV NM CARDIAC Final Resul t documented in this encounter Visit Diagnoses Diagnosis Stable angina pectoris- Primary Atherosclerosis of [place] coronary artery of [place] heart without angina pectoris- Primary Primary hypertension Unspecified essential hypertension Pure hypercholesterolemia Stable angina pectoris documented in this encounter Care Teams Graphic Manager Relationship Specialty Start Date End Date Reg Laboy MD [address] [place] [address] [place] [id number] PCP - General Internal Medicine 06/03/16 Edwardo Yin MD [address] [place] [address] [place] [id number] [email or web address] Meat Trimmer Cardiology 06/22/16 documented as of this encounter Additional Source Comments The information contained in this document represents components of the legal health record. It is not the complete legal health record.[facility]
--- OUTSIDE RECORDS SUMMARY | 2025-02-19 07:02 | XMS_ITS | Encounter Summary ---
Author Organization [facility] Address 399 [facility] [address] [place] [address] Phone Care Team Providers Care Pattern Illustrator Name Role Phone Reg Laboy MD Primary Care Provider [phone] Edwardo Yin MD Unavailable [phone] Encounter Details Date Type Department Care Team (Late st Contact Info) Description 04/07/2021 Procedure Pass [facility] [address] [place] [address] Social History Tobacco Use Types Packs/Day Years Used Date Smoking Tobacco: Former Cigarettes Q uit: 11/17/1975 Smokeless Tobacco: Never Alcohol Use Standard Drinks/Week Comments Yes 0 (1 standard drink = 0.6 oz pur e alcohol) Sex and Gender Information Value Date Recorded Sex Assigned at Not on file Legal Sex Male 4:41 PM EST Gender Identity Not on file Sexual Orientation Not on file documented as of this encounter Plan of Treatment Upcoming Encounters Date Type Department Care Team (Late st Contact Info) Description 07/18/2025 8:40 AM EST Office Visit [facility] [address] [place] [address] 3rd Floor, [address] [place] [address] Edwardo Garcia MD 22 [facility], [address] [address] [email or web address] documented as of this encounter Visit Diagnoses Not on filedocumented in this encounter Care Teams Pattern Illustrator Relationship Specialty Start Date End Date Reg Laboy MD [address] [place] [address] [place] [id number] PCP - General Internal Medicine 06/03/16 Edwardo Yin MD [address] [place] [address] [place] [id number] [email or web address] Account Manager Cardiology 06/22/16 documented as of this encounter Additional Source Comments The information contained in this document represents components of the legal health record. It is not the complete legal health record.[facility]
[2025-02-19 07:20] LABS: MANUAL DIFF FLAG NO
[2025-02-19 07:38] LABS: Hematocrit 40.5 % (42.0-52.0); Hemoglobin 13.9 g/dl (14.0-18.0); Imm Gran Abs Auto 0.02 X10*3/uL (0.00-0.03); Imm Gran Pct Auto 0.3 % (0.0-0.4); Lymphocytes Absolute Auto 1.8 X10*3/uL (1.2-4.9); Mean Corpuscular HGB Conc 34.3 g/dl (31.0-36.0); Mean Corpuscular Hemoglobin 31.0 pg (27.0-33.0); Mean Corpuscular Volume 90.4 fL (80.0-98.0); NRBC Abs Auto 0.000 X10*3/uL (0.0-0.012); NRBC Pct Auto 0.0 /100WBC (0.0-0.2); Platelet Count 193 X10*3/uL (160-400); Red Blood Count 4.48 X10*6/uL (4.60-5.80); White Blood Count 6.2 X10*3/uL (4.8-10.8)
[2025-02-19 07:52] LABS: Appearance Urine Clear; Glucose Urine UA Negative (Negative); PH 5.5 (5.0-9.0); Specific Gravity - Urine 1.015 (1.005-1.025); UMIC TRIGGER UACC YES
[2025-02-19 08:12] LABS: Alanine Aminotransferase 50 U/L (0-40); Albumin Level 4.4 g/dL (3.5-5.0); Alkaline Phosphatase 75 U/L (39-117); Anion Gap 10 (12-20); Aspartate Amino Transferase 28 U/L (5-37); Blood Urea Nitrogen 26 mg/dL (9-16); Calcium 9.3 mg/dL (8.4-10.2); Carbon Dioxide 23 mmol/L (22-29); Chloride 111 mmol/L (96-108); Cholesterol 115 mg/dL (<200); Estimated Glomerular Filt Rate 58; HDL Cholesterol 42 mg/dL (>40); Potassium 4.3 mmol/L (3.3-5.1); Sodium 140 mmol/L (135-145); Total Protein 7.0 g/dL (6.5-8.0); Triglycerides 72 mg/dL (<150)
== END 2025-02-19 06:58 | disposition home or self-care (01) ==
LOC: HO.LAB 06:57
PROVIDERS: PCP Internal Medicine; Visit Provider Internal Medicine
DX: E78.00 Pure hypercholesterolemia, unspecified (principal); D64.9 Anemia, unspecified; E55.9 Vitamin D deficiency, unspecified
CPT/HCPCS: 36415; 80053; 80061; 81001; 82306; 84443; 85025

== ENCOUNTER 2025-02-27 09:54 | Outpatient (AMB) | payer MEDICARE, SELFPAY ==
--- OUTSIDE RECORDS SUMMARY | 2016-05-05 01:00 | XMS_ITS | Encounter Summary ---
Author Organization [facility] Address [address] [facility] [address] [place] [phone] Phone Care Team Providers Care Bead Supervisor Name Role Phone Unavailable Primary Care Provider Unavailabl e Encounter Details Date Type Department Care Team (Late st Contact Info) Description 05/05/2016 Hospital Encounter [facility] [address] [place] [address] Abdirizak Farmer MD [email or web address] Social History Tobacco Use Types Packs/Day Years Used Date Smoking Tobacco: Former Cigarettes Q uit: 11/17/1975 Smokeless Tobacco: Never Alcohol Use Standard Drinks/Week Comments Yes 0 (1 standard drink = 0.6 oz pur e alcohol) Education Answer Date Recorded Are you interested in more education? Not on kelvin e 09/25/2022 Are you concerned about learning? Not on file 09/25/2022 No 09/25/2022 No 09/25/2022 Digital Access Answer Date Recorded No 10/26/2022 No 10/26/2022 Reliable internet access at home? Not on file 10/26/2022 Device with a working camera? Not on file Sex and Gender Information Value Date Recorded Sex Assigned at Not on file Legal Sex Male 4:41 PM EST Gender Identity Not on file Sexual Orientation Not on file documented as of this encounter Plan of Treatment Upcoming Encounters Date Type Department Care Team (Late st Contact Info) Description 07/18/2025 8:40 AM EST Office Visit [facility] [address] [facility] [address]rd [address], [address] [place] [address] Edwardo Garcia MD [address] [facility], [address] [place] [address] [email or web address] documented as of this encounter Procedures Procedure Name Priority Date/Time Associated Diagnosis Comments [place] CARDIAC OUTSIDE (NO INTERPRETATION) Routine 05/05/2016 12:00 AM EST documented in this encounter Results * [place] Cardiac Outside (No Interpretation) (05/05/2016 12:00 AM EST) Narrative [facility] IMG INTERFACES - 06/30/2016 10:25 AM EST This study is for PACS storage only and not for interpretation. Abdirizak Kauffman-The talat [facility] IMG OUTSIDE IMAGING W/OUT INTERPRETATION Final Result [facility] IMG INTERFACES documented in this encounter Visit Diagnoses Not on filedocumented in this encounter Additional Source Comments The information contained in this document represents components of the legal health record. It is not the complete legal health record.[facility]
--- NOTE | 2025-02-27 09:58 | MHC.PC.OV ---
Vital Signs 02/27/25 09:59 Height 5 ft 11 in Weight 188 lb 4 oz BMI 26.3 BP 120/60 Blood Pressure Location Lt brachial Position Sitting Pulse 50 Pulse Source Pulse Oximeter Pulse Oximetry (%) 96 Oxygen Delivery Method Room Air Intake Visit Reasons: CAD, hyperlipidemia, elevated LFTs, asthma, HTN Count Team Clerk Required: No Accompanied by: Self / Same As Patient Allergies Cephalosporins Allergy (Mild, Verified 02/27/25 10:22) Unknown cefazolin Allergy (Unknown, Verified 02/27/25 10:22) Unknown clindamycin Adverse Reaction (Intermediate, Verified 02/27/25 10:22) constipation,abdominal discomfort pneumococcal vaccine Adverse Reaction (Unknown, Verified 02/27/25 10:22) arm swelling Medication List - Last Reconciled 02/27/25 by Reg Laboy MD amlodipine 5 mg PO QAM aspirin 81 mg PO DAILY atorvastatin 80 mg PO DAILY betamethasone dipropionate 0.05% 1 ea topical BID PRN cholecalciferol (vitamin D3) 25 mcg PO DAILY [CPAP device As directed] lisinopril 40 mg PO DAILY Tobacco use date assessed: 02/27/25 Fall risk assessment: No Falls in past year Last assessed Fall Risk: 02/27/25 Dental Screening Dental Screen Date: 02/27/25 Did you have a dental visit in the last 12 months?: Yes Did you have a dental problem in the last 6 months where you did not have access to dental care?: No Was dental information given to patient?: Patient has dentist HPI CAD, hyperlipidemia, elevated LFTs, asthma, HTN HPI Details Patient comes in today for his follow-up visit States that he feels well He denies any headaches or dizziness Denies any chest pains, no shortness of breath No nausea/vomiting, no abdominal pain No change in bowel habits noted He had his follow up labs done last week - to discuss his results [facility] Medical History Benign prostatic hyperplasia with lower urinary tract symptoms Obstructive sleep apnea Vitamin D deficiency Asthma Pure hypercholesterolemia Benign essential hypertension Coronary artery disease Surgical History History of open heart surgery History of inguinal hernia repair History of tonsillectomy Family History Father Cancer Mother Cancer Other Alcohol abuse Social History Housing: House Alcohol intake: current Alcohol intake frequency: 3 or more drinks per day Alcohol type: beer Patient Tobacco Use Status: Former Tobacco user e-Cigarette/Vaping Use: Never Used Second Hand Smoke Exposure: Yes service: No Current occupational status: retired Cognitive needs: No Hearing needs: No Vision needs: Yes (Glasses) Questionnaire Thrive Questionnaire Date Thrive assessed: 10/16/24 I am a: Patient What is your living situation today?: I choose not to answer this question Within the past 12 months, did the food you bought not last and you didn't have the money to get more?: I choose not to answer this question Within the past 12 months, did you worry whether your food would run out before you got money to buy more?: I choose not to answer this question Do you have trouble paying for medicines?: I choose not to answer this question Do you have trouble getting transportation to medical appointments?: I choose not to answer this question Do you have trouble paying your heating and electricity bill?: I choose not to answer this question Do you have trouble taking care of your child, family member or friend?: I choose not to answer this question Do you have trouble with day-to-day activities such as bathing, preparing meals, shopping, managing finances, etc.?: I choose not to answer this question Are you currently unemployed and looking for a job?: I choose not to answer this question Are you interested in more education?: I choose not to answer this question Please select the resources that you would like help with: None Currently or been in a relationship where the following occur: I choose not to answer THRIVE Score: 0 AUDIT C Alcohol Use Questionnaire (AUDIT-C) 1. How often do you have a drink containing alcohol?: Never 3. How often do you have six or more drinks on one occasion?: Never Total Score: 0 Score Reviewed/Action Taken: Yes RAMEZ-7 AMB Questionnaire RAMEZ-7 Date RAMEZ - 7 assessed: 10/16/24 Source: Developed by Drs. Ruy Hernandez, Ximena Mcgowan, Polo Nielsen and colleagues, with an educational javier from [employer]. Review of Systems Const Denies chills, Denies difficulty sleeping, Denies fatigue, Denies fever(s) and Denies headache(s) ENT Denies dysphagia, Denies dizziness, Denies otalgia, Denies headache(s), Denies neck pain, Denies odynophagia and Denies sore throat Card Denies chest pain, Denies palpitations and Denies dyspnea Resp Denies chest congestion, Denies cough and Denies dyspnea GI Denies abdominal pain, Denies constipation, Denies dysphagia, Denies heartburn, Denies diarrhea, Denies nausea, Denies odynophagia and Denies vomiting Denies difficulty urinating, Denies dysuria, Denies nocturia and Denies urinary frequency Musc Denies back pain, Reports arthralgias (left shoulder) and Denies neck pain Skin/Breast Denies rash Neuro Denies dizziness and Denies headache(s) Endo Denies fatigue and Denies palpitations Physical exam (Primary Care) Vital Signs: Last Vital Signs Pulse 50 02/27/25 09:59 BP 120/60 02/27/25 09:59 Pulse Ox 96 02/27/25 09:59 Oxygen Delivery Method Room Air 02/27/25 09:59 BMI result Body Mass Index 26.3 Tobacco/Smoking Status: Tobacco use Status Tobacco use date assessed 02/27/25 02/27/25 10:03 Patient Tobacco Use Status Former Tobacco user 02/27/25 10:03 e-Cigarette/Vaping Use Never Used 02/27/25 10:03 Thrive Assessment: Date of Thrive Assessment Date Thrive assessed 10/16/24 02/27/25 10:03 Currently or been in a relationship where the following occur: I choose not to answer Const General: no acute distress and alert HENMT Ears: TM's normal bilaterally and EAC's normal Throat: Yes posterior oropharynx normal and Yes tonsils normal (no TP congestion noted) Neck Neck: Yes supple and No lymphadenopathy Thyroid: Thyroid normal Resp Auscultation: clear to auscultation bilaterally, no rales and no wheezes Cardio Rate: regular rate Rhythm: regular rhythm Heart sounds: no murmurs GI Palpation (GI): Soft to palpation and nontender Auscultation: normal bowel sounds General: Yes no CVA tenderness Back/Spine/Pelvis Back: no CVA tenderness Thoracic/Lumbar Spine: No lumbar spinal tenderness Skin Rashes: no rashes Extrem General: Yes no clubbing, cyanosis or edema Results Reviewed Results Reviewed: Laboratory Tests 02/19/25 02/19/25 07:06 07:19 WBC 6.2 Hgb 13.9 L Hct 40.5 L Plt Count 193 Sodium 140 Potassium 4.3 Creatinine 1.20 Estimated GFR 58 Fasting Glucose 105 H Calcium 9.3 AST 28 ALT 50 H Triglycerides 72 Cholesterol 115 LDL Cholesterol, Calc 59 HDL Cholesterol 42 25-OH Vitamin D Total 43.6 TSH 3.50 Ur Specific [place] 1.015 Urine Protein Trace Urine Glucose (UA) Negative Urine Blood Trace H Urine Nitrite Negative Ur Leukocyte Esterase Negative Coding Level of Care Code Est Pt Level 4 (00783) Diagnoses Coronary artery disease involving [place] coronary artery of [place] heart without angina pectoris I25.10 Coronary Disease-Associated Artery/Lesion type: [place] artery [place] vs. transplanted heart: [place] heart Associated angina: without angina Pure hypercholesterolemia E78.00 Benign essential hypertension I10 Mild intermittent asthma without complication J45.20 Asthma severity: mild Asthma persistence: intermittent Asthma complication type: uncomplicated Obstructive sleep apnea G47.33 Impaired fasting glucose R73.01 Elevated alanine aminotransferase (ALT) level R74.01 Vitamin D deficiency E55.9 Dermatitis L30.9 Benign prostatic hyperplasia with lower urinary tract symptoms, symptom details unspecified N40.1 Lower urinary tract symptom detail: unspecified Assessment & Plan Assessment & Plan (1) Coronary artery disease: Comment: S/P quadruple bypass surgery back in August 2016 (had three-vessel coronary disease with 50% stenosis in the distal left main, 99% ostial circumflex with TIMI2 flow due to left to left and right to left collaterals, 70% stenosis in the mid LAD, 70% stenosis in the mid RCA and 80% stenosis in the PDA seen on cardiac catheterization in 2016) - patient completed cardiac rehab with significant functional improvement Code(s): I25.10 - Atherosclerotic heart disease of [place] coronary artery without angina pectoris Category: Medical Qualifiers: Coronary Disease-Associated Artery/Lesion type: [place] artery [place] vs. transplanted heart: [place] heart Associated angina: without angina Qualified Code(s): I25.10 - Atherosclerotic heart disease of [place] coronary artery without angina pectoris Plan: Patient remains asymptomatic from a cardiac standpoint Continue low-dose Aspirin 81 mg QD He had a repeat nuclear stress testing done last year with cardiology that came out normal He also had a 24 hour Holter monitor last year that revealed NSR as the prevailing rhythm, with first-degree AV block Follow up with cardiology as scheduled (2) Pure hypercholesterolemia: Code(s): E78.00 - Pure hypercholesterolemia, unspecified Category: Medical Plan: Results of his labs done last week reviewed and discussed with patient Reinforced low cholesterol diet Continue Atorvastatin 80 mg QD Will recheck his labs and fasting lipids in 4 months for follow-up (3) Benign essential hypertension: Code(s): I10 - Essential (primary) hypertension Category: Medical Plan: Reinforced low-sodium diet - goal is systolic BP of at least 140 to 150 mm or less Continue Lisinopril 40 mg QD and Amlodipine 5 mg QD (4) Asthma: Code(s): J45.909 - Unspecified asthma, uncomplicated Category: Medical Qualifiers: Asthma severity: mild Asthma persistence: intermittent Asthma complication type: uncomplicated Qualified Code(s): J45.20 - Mild intermittent asthma, uncomplicated Plan: Stable - patient states that he has not had to use any of his inhalers for the past few years (5) Obstructive sleep apnea: Code(s): G47.33 - Obstructive sleep apnea (adult) (pediatric) Category: Medical Plan: Patient continues to use his CPAP device when sleeping at night - states that he is doing very well on his CPAP with no acute issues As it has been a few years now since he's had a sleep study done, have advised him previously that it may be prudent to get his sleep apnea reassessed and that we can now refer him to a sleep specialist here locally for his convenience Patient would still like to hold off on this for now; states that he will call for a referral when he feels he is ready to get his sleep apnea rechecked (6) Impaired fasting glucose: Code(s): R73.01 - Impaired fasting glucose Category: Medical Plan: His FBS was slightly up at 105 mg/dl on his labs last week; HgbA1c was normal at 5.5% when previously checked Reinforced low calorie/low carb diet (7) Elevated alanine aminotransferase (ALT) level: Code(s): R74.01 - Elevation of levels of liver transaminase levels Category: Medical Plan: Patient's ALT was slightly elevated again on his recent labs; AST remained normal This was most likely due to the effects of alcohol, as he admits to still drinking a couple of light beers 'every now and then' Will continue to monitor his LFTs regularly (8) Vitamin D deficiency: Code(s): E55.9 - Vitamin D deficiency, unspecified Category: Medical Plan: Continue Vitamin D3 1000 units QD (9) Dermatitis: Code(s): L30.9 - Dermatitis, unspecified Category: Medical Plan: Continue Betamethasone Dipropionate 0.05% apply BID PRN (10) Benign prostatic hyperplasia with lower urinary tract symptoms: Code(s): N40.1 - Benign prostatic hyperplasia with lower urinary tract symptoms Category: Medical Qualifiers: Lower urinary tract symptom detail: unspecified Qualified Code(s): N40.1 - Benign prostatic hyperplasia with lower urinary tract symptoms Plan: Follow up with urology (Dr. Rose) as scheduled Patient stopped taking his previous Rx (Terazosin and Finasteride) as he felt that they were not really helping much - notes that his symptoms have not gotten any worse since he stopped taking his previous meds Plan Follow up in 4 months Orders: Orders Complete Blood Count Auto Diff 4 Months D64.9 - Anemia, unspecified Lipid Panel 4 Months E78.00 - Pure hypercholesterolemia, unspecified Vitamin B12 and Folate 4 Months E53.8 - Deficiency of other specified B group vitamins Hemoglobin A1c 4 Months R73.01 - Impaired fasting glucose Comprehensive [place]. Panel Fast 4 Months E78.00 - Pure hypercholesterolemia, unspecified TSH reflex Free T4 4 Months E78.00 - Pure hypercholesterolemia, unspecified UA CC w/rflx Micro + Cult 4 Months R30.0 - Dysuria Vitamin D 25-OH Total 4 Months E55.9 - Vitamin D deficiency, unspecified
[2025-02-27 09:59] VITALS: BP 120/60; PULSE 50; O2SAT 96; BMI 26.3
--- OUTSIDE RECORDS SUMMARY | 2025-02-27 10:53 | XMS_ITS | Encounter Summary ---
Author Organization [facility] Address [address] [place] [address] Phone Care Team Providers Care Unclaimed Property Manager Name Role Phone Reg Laboy MD Primary Care Provider [phone] Edwardo Yin MD Unavailable [phone] Encounter Details Date Type Department Care Team (Latest Contact Info) Description 10/21/2017 Transcribe Orders [facility] [address] [place] [address] Reg Laboy MD [address] [place] [address] [address] Essential hypertension, benign (Primary Dx); Hyperlipidemia, unspecified [...] Description 07/18/2025 8:40 AM EST Office Visit [facility] [address] 3rd Floor, [address] [place] [address] Edwardo Garcia MD [facility], [address] [id number] documented as of this encounter Results * (ABNORMAL) Urine sediment (10/21/2017 8:58 AM EDT) WBC 0-4(A) NONE SEEN /hpf [facility] RBC 0-2(A) NONE SEEN /hpf [facility] URINE EPITHELIAL 11-20(A) NONE SEEN [facility] MUCUS NONE SEEN NONE SEEN /hpf [facility] BACTERIA Trace(A) NONE SEEN [facility] Urine (Urine) 10/21/2017 8:5 8 AM EDT 10/21/2017 9:00 AM EDT us Reg Laboy MD URINE ORDERABLES Final Re sult Performing Organization Address [facility]/ZIP Co de Phone Number [address] [address] * TSH with reflex (10/21/2017 8:53 AM EDT) TSH 3.07 0.27 - 4.20 uIU/mL [facility] Blood 10/21/2017 8:53 AM EDT 10/21/2017 8:57 AM EDT us Reg Laboy MD LAB BLOOD ORDERABLES Julia l Result Performing Organization Address [facility]/ZIP Co de Phone Number [address] [address] * 25-OH vitamin D (10/21/2017 8:53 AM EDT) 25 OH VIT D (TOTAL) 39 30 - 1,000 ng/mL [facility] Blood 10/21/2017 8:53 AM EDT 10/21/2017 8:57 AM EDT us Reg Laboy MD LAB BLOOD ORDERABLES Julia l Result Performing Organization Address [facility]/ZIP Co de Phone Number [address] [address] * (ABNORMAL) CBC and differential (10/21/2017 8:53 AM EDT) WBC 7.07 3.40 - 11.20 K/uL [facility] RBC 4.81 4.50 - 5.50 M/uL [facility] HGB 14.8 13.0 - 17.0 g/dL [facility] HCT 44.6 40.0 - 51.0 % [facility] PLT 200 130 - 400 K/uL [facility] MCV 92.7 79.0 - 98.0 fL [facility] MCH 30.8 27.0 - 34.8 pg [facility] MCHC 33.2 31.5 - 36.0 g/dL [facility] RDW 14.2 10.8 - 14.6 % [facility] MPV 10.5 9.4 - 12.4 fl [facility] NRBC 0.00 /100 WBCs [facility] ABSOLUTE NRBC 0.00 K/uL [facility] DIFF METHOD Auto [facility] NEUTS 53.8 45.30 - 77.70 % [facility] LYMPHS 32.0 12.30 - 39.70 % [facility] MONOS 9.2 4.10 - 12.80 % [facility] EOS 4.0 0 - 7.2 % [facility] BASOS 0.7 0 - 2.80 % [facility] Granulocytes, immature (%) 0.3 0.0 - 0.9 % [facility] ABSOLUTE NEUTS 3.81 1.40 - 7.70 K/uL [facility] ABSOLUTE LYMPHS 2.26 0.60 - 3.20 K/uL [facility] ABSOLUTE MONOS 0.65(H) 0.11 - 0.59 K/uL [facility] ABSOLUTE EOS 0.28 0.01 - 0.50 K/uL [facility] ABSOLUTE BASOS 0.05 0.00 - 0.08 K/uL [facility] Granulocytes, immature 0.02 0.00 - 0.05 K/uL [facility] Blood 10/21/2017 8:53 AM EDT 10/21/2017 8:57 AM EDT us Reg Laboy MD LAB BLOOD ORDERABLES Julia l Result [address] [address] * (ABNORMAL) Lipid panel (10/21/2017 8:53 AM EDT) HDL 40 mg/dL [facility] Comment: Interpretation: Risk Level Males Decreased >45 mg/dL Average 40-45 mg/dL Increased <40 mg/dL CHOLESTEROL 106 0 - 240 mg/dL [facility] TRIGLYCERIDES 83 30 - 160 mg/dL [facility] LDL 49(L) 50 - 129 mg/dL [facility] Comment: LDL levels in terms of risk for coronary heart disease: <100 mg/dL: Optimal 100-129 mg/dL: Near or above optimal 130-159 mg/dL: Borderline high 160-189 mg/dL: High >190 mg/dL: Very High CARDIAC RISK RATIO 2.7(L) 3.4 - 5.0 [facility] Blood 10/21/2017 8:53 AM EDT 10/21/2017 8:57 AM EDT Reg Laboy MD LAB BLOOD ORDERABLES Julia l Result [address] [address] * (ABNORMAL) Comprehensive metabolic panel (10/21/2017 8:53 AM EDT) SODIUM 142 133 - 146 mmol/L [facility] POTASSIUM 4.3 3.3 - 5.1 mmol/L [facility] CHLORIDE 103 96 - 108 mmol/L [facility] CO2 27 21 - 35 mmol/L [facility] BUN 18 6 - 19 mg/dL [facility] CREATININE 1.10 0.5 - 1.5 mg/dL [facility] GLUCOSE 107(H) 70 - 99 mg/dL [facility] ALBUMIN 4.1 3.9 - 4.8 g/dL [facility] TOTAL PROTEIN 7.2 6.5 - 8.0 g/dL [facility] CALCIUM 9.1 8.4 - 10.3 mg/dL [facility] ALKALINE PHOSPHATASE 76 39 - 117 U/L [facility] TOTAL BILIRUBIN 0.9 0.0 - 1.2 mg/dL [facility] AST 22 0 - 37 U/L [facility] ALT 39 0 - 40 U/L [facility] GLOBULIN 3.1 1 - 4.8 g/dL [facility] EGFR 66 >59 mL/min/1.7 3m2 [facility] Comment:If patient is black, multiply result by 1.159. The eGFR calculation has changed from the MDRD equation to the CKD-EPI equation as of August 03, 2017. ANION GAP 16 10 - 20 mmol/L [facility] Blood 10/21/2017 8:53 AM EDT 10/21/2017 8:57 AM EDT Reg Laboy MD LAB BLOOD ORDERABLES Julia l Result Performing Organization Address City/State/[facility] Co de Phone Number [address] [address] documented in this encounter Visit Diagnoses Diagnosis Essential hypertension, benign- Primary Hyperlipidemia, unspecified hyperlipidemia type Disease of cardiovascular system Unspecified cardiovascular disease Avitaminosis D Unspecified vitamin D deficiency documented in this encounter Care Teams Unclaimed Property Manager Relationship Specialty Start Date End Date Reg Laboy MD [address] [place] [address] [place] [address] PCP - General Internal Medicine 06/03/16 Edwardo Yin MD [address] [place] [address] [place] [address] [email or web address] Manager Cardiology 06/22/16 documented as of this encounter Additional Source Comments The information contained in this document represents components of the legal health record. It is not the complete legal health record.[facility]
--- OUTSIDE RECORDS SUMMARY | 2025-02-27 10:53 | XMS_ITS | Encounter Summary ---
Author Organization [facility] Address [address] [place] [address] Phone Care Team Providers Care Pressure Washer Name Role Phone Reg Laboy MD Primary Care Provider [phone] Edwardo Yin MD Unavailable [phone] Encounter Details Date Type Department Care Team (Latest Contact Info) Description 05/11/2017 Transcribe Orders [facility] [address] [place] [address] Edwardo Yin MD [address] [address] [email or web address] CVD (cardiovascular disease) (Primary Dx) Social History [...] Description 07/18/2025 8:40 AM EST Office Visit [facility] [address] [facility] 3rd Floor, [address] [place] [address] Edwardo Garcia MD [address] [address] documented as of this encounter Results * Basic metabolic panel (05/11/2017 9:20 AM EST) SODIUM 141 133 - 146 mmol/L [facility] CHLORIDE 104 96 - 108 mmol/L [facility] POTASSIUM 4.2 3.3 - 5.1 mmol/L [facility] CO2 26 21 - 35 mmol/L [facility] BUN 17 6 - 19 mg/dL [facility] CREATININE 0.90 0.5 - 1.5 mg/dL [facility] GLUCOSE 91 70 - 99 mg/dL [facility] CALCIUM 8.8 8.4 - 10.3 mg/dL [facility] EGFR >60 mL/min/1.7 3m2 [facility] Comment:Abnormal if <60. If patient is -[place], multiply the result by 1.21. ANION GAP 15 10 - 20 mmol/L [facility] Blood 05/11/2017 9:20 AM EST 05/11/2017 9:22 AM EST us Edwardo Yin MD LAB BLOOD ORDERABLES Final Resu lt [facility] [address] [place] [address] * LFTs (hepatic panel) (05/11/2017 9:20 AM EST) ALKALINE PHOSPHATASE 72 39 - 117 U/L [facility] TOTAL BILIRUBIN 0.8 0 - 1.2 mg/dL [facility] DIRECT BILIRUBIN <0.2 0 - 0.3 mg/dL [facility] Bilirubin (Indirect) NOT CALCULATED 0 - 1.5 mg/dL [facility] AST 17 0 - 37 U/L [facility] ALT 31 0 - 40 U/L [facility] TOTAL PROTEIN 6.9 6.5 - 8.0 g/dL [facility] ALBUMIN 4.1 3.9 - 4.8 g/dL [facility] GLOBULIN 2.8 1 - 4.8 g/dL [facility] A/G Ratio 1.46 1.00 - 4.80 RATIO [facility] Blood 05/11/2017 9:20 AM EST 05/11/2017 9:22 AM EST us Edwardo Yin MD LAB BLOOD ORDERABLES Final Resu lt Performing Organization Address [facility]/ZIP Co de Phone Number [address] [address] * (ABNORMAL) Lipid panel (05/11/2017 9:20 AM EST) HDL 33 mg/dL [facility] Comment: Interpretation: Risk Level Males Decreased >45 mg/dL Average 40-45 mg/dL Increased <40 mg/dL CHOLESTEROL 87 0 - 240 mg/dL [facility] TRIGLYCERIDES 70 30 - 160 mg/dL [facility] LDL 40(L) 50 - 129 mg/dL [facility] Comment: LDL levels in terms of risk for coronary heart disease: <100 mg/dL: Optimal 100-129 mg/dL: Near or above optimal 130-159 mg/dL: Borderline high 160-189 mg/dL: High >190 mg/dL: Very High CARDIAC RISK RATIO 2.6(L) 3.4 - 5.0 [facility] Blood 05/11/2017 9:20 AM EST 05/11/2017 9:22 AM EST us Edwardo Yin MD LAB BLOOD ORDERABLES Final Resu lt Performing Organization Address [facility] Co de Phone Number [address] [address] documented in this encounter Visit Diagnoses Diagnosis CVD (cardiovascular disease)- Primary Unspecified cardiovascular disease documented in this encounter Care Teams Pressure Washer Relationship Specialty Start Date End Date Reg Laboy MD [address] [place] [address] [place] [address] PCP - General Internal Medicine 06/03/16 Edwardo Yin MD [address] [place] [address] [place] [address] [email or web address] Cardiology 06/22/16 documented as of this encounter Additional Source Comments The information contained in this document represents components of the legal health record. It is not the complete legal health record.[facility]
--- OUTSIDE RECORDS SUMMARY | 2025-02-27 10:54 | XMS_ITS | Encounter Summary ---
Author Organization [facility] Address [address] [facility] [facility] [address] [place] [address] Phone Care Team Providers Care Corporate Travel Consultant Name Role Phone Reg Laboy MD Primary Care Provider [phone] Edwardo Yin MD Unavailable [phone] Encounter Details Date Type Department Care Team (Late st Contact Info) Description 04/07/2021 Procedure Pass Echo Lab [address] [place] [address] Social History Tobacco Use Types Packs/Day Years [...] Description 07/18/2025 8:40 AM EST Office Visit [facility] [address] [place] [address] 3rd Floor, [address] [place] [address] Edwardo Garcia MD 22 [facility], [address] [address] [email or web address] documented as of this encounter Visit Diagnoses Not on filedocumented in this encounter Care Teams Corporate Travel Consultant Relationship Specialty Start Date End Date Reg Laboy MD [address] [place] [address] [place] [address] PCP - General Internal Medicine 06/03/16 Edwardo Yin MD [address] [place] [address] [place] [address] [email or web address] Cardiology 06/22/16 documented as of this encounter Additional Source Comments The information contained in this document represents components of the legal health record. It is not the complete legal health record.[facility]
--- OUTSIDE RECORDS SUMMARY | 2025-02-27 10:54 | XMS_ITS | Encounter Summary ---
Author Organization [facility] Address [address] [place] [address] [place] [address] Phone Care Team Providers Care Active Directory Systems Administrator Name Role Phone Reg Laboy MD Primary Care Provider [phone] Edwardo Yin MD Unavailable Encounter Details Date Type Department Care Team (Latest Contact Info) Description 02/24/2018 Transcribe Orders [facility] [address] [place] [address] [place] [address] Reg Laboy MD [address] [place] [address] [address] Essential hypertension, malignant (Primary Dx); Coronary artery disease without angina pectoris, unspecified vessel or lesion type, unspecified whether kas[place] or transplanted heart; Vitamin D deficiency disease; Hyperlipidemia, unspecified hyperlipidemia type Social History Tobacco Use Types Packs/Day Years Used Date Smoking Tobacco: Former Cigarettes Q uit: 11/17/1975 Smokeless Tobacco: Never Sex and Gender Information Value Date Recorded Sex Assigned at Not on file Legal Sex Male 4:41 PM EST Gender Identity Not on file Sexual Orientation Not on file documented as of this encounter Plan of Treatment Upcoming Encounters Date Type Department Care Team (Late st Contact Info) Description 07/18/2025 8:40 AM EST Office Visit [facility] [address] [place] [address] 3rd Floor, [address] [place] [address] Edwardo Garcia MD [address], [address] [place] [address] [email or web address] documented as of this encounter Results * (ABNORMAL) Urine sediment (02/24/2018 8:22 AM EDT) WBC NONE SEEN NONE SEEN /hpf [facility] RBC 0-2(A) NONE SEEN /hpf [facility] URINE EPITHELIAL 0-4(A) NONE SEEN [facility] MUCUS Trace(A) NONE SEEN /hpf [facility] BACTERIA NONE SEEN NONE SEEN [facility] Urine (Urine) 02/24/2018 8:2 2 AM EDT 02/24/2018 8:24 AM EDT us Reg Laboy MD URINE ORDERABLES Final Re sult Performing Organization Address [facility] Co de Phone Number [address] [address] * TSH with reflex (02/24/2018 8:19 AM EDT) TSH 3.34 0.27 - 4.20 uIU/mL [facility] Blood 02/24/2018 8:19 AM EDT 02/24/2018 8:21 AM EDT Reg Laboy MD LAB BLOOD ORDERABLES Julia l Result Performing Organization Address [facility]/ZIP Co de Phone Number [address] [address] * 25-OH vitamin D (02/24/2018 8:19 AM EDT) 25 OH VIT D (TOTAL) 45 30 - 60 ng/mL [facility] Blood 02/24/2018 8:19 AM EDT 02/24/2018 8:21 AM EDT us Reg Laboy MD LAB BLOOD ORDERABLES Julia l Result Performing Organization Address [facility]/ZIP Co de Phone Number [facility] [address] [place] [address] * (ABNORMAL) CBC and differential (02/24/2018 8:19 AM EDT) WBC 7.51 3.40 - 11.20 K/uL [facility] RBC 4.78 4.50 - 5.50 M/uL [facility] HGB 15.0 13.0 - 17.0 g/dL [facility] HCT 44.8 40.0 - 51.0 % [facility] PLT 196 130 - 400 K/uL [facility] MCV 93.7 79.0 - 98.0 fL [facility] MCH 31.4 27.0 - 34.8 pg [facility] MCHC 33.5 31.5 - 36.0 g/dL [facility] RDW 14.3 10.8 - 14.6 % [facility] MPV 10.5 9.4 - 12.4 fl [facility] NRBC 0.00 /100 WBCs [facility] ABSOLUTE NRBC 0.00 K/uL [facility] DIFF METHOD Auto [facility] NEUTS 57.1 45.30 - 77.70 % [facility] LYMPHS 29.7 12.30 - 39.70 % [facility] MONOS 8.1 4.10 - 12.80 % [facility] EOS 4.0 0 - 7.2 % [facility] BASOS 0.7 0 - 2.80 % [facility] Granulocytes, immature (%) 0.4 0.0 - 0.9 % [facility] ABSOLUTE NEUTS 4.29 1.40 - 7.70 K/uL [facility] ABSOLUTE LYMPHS 2.23 0.60 - 3.20 K/uL [facility] ABSOLUTE MONOS 0.61(H) 0.11 - 0.59 K/uL [facility] ABSOLUTE EOS 0.30 0.01 - 0.50 K/uL [facility] ABSOLUTE BASOS 0.05 0.00 - 0.08 K/uL [facility] Granulocytes, immature 0.03 0.00 - 0.05 K/uL [facility] Blood 02/24/2018 8:19 AM EDT 02/24/2018 8:21 AM EDT Reg Laboy MD LAB BLOOD ORDERABLES Julia l Result [address] [address] * Lipid panel (02/24/2018 8:19 AM EDT) HDL 36 mg/dL [facility] Comment: Interpretation: Risk Level Males Decreased >45 mg/dL Average 40-45 mg/dL Increased <40 mg/dL CHOLESTEROL 123 0 - 240 mg/dL [facility] TRIGLYCERIDES 115 30 - 160 mg/dL [facility] LDL 64 50 - 129 mg/dL [facility] Comment: LDL levels in terms of risk for coronary heart disease: <100 mg/dL: Optimal 100-129 mg/dL: Near or above optimal 130-159 mg/dL: Borderline high 160-189 mg/dL: High >190 mg/dL: Very High CARDIAC RISK RATIO 3.4 3.4 - 5.0 C [facility] Blood 02/24/2018 8:19 AM EDT 02/24/2018 8:21 AM EDT Reg Laboy MD LAB BLOOD ORDERABLES Julia l Result Performing Organization Address City/[facility]/ZIP Co de Phone Number [address] [address] * (ABNORMAL) Comprehensive metabolic panel (02/24/2018 8:19 AM EDT) SODIUM 139 133 - 146 mmol/L [facility] POTASSIUM 4.6 3.3 - 5.1 mmol/L [facility] CHLORIDE 101 96 - 108 mmol/L [facility] CO2 25 21 - 35 mmol/L [facility] BUN 21(H) 6 - 19 mg/dL [facility] CREATININE 1.00 0.5 - 1.5 mg/dL [facility] GLUCOSE 105(H) 70 - 99 mg/dL [facility] ALBUMIN 4.2 3.9 - 4.8 g/dL [facility] TOTAL PROTEIN 7.4 6.5 - 8.0 g/dL [facility] CALCIUM 9.3 8.4 - 10.3 mg/dL [facility] ALKALINE PHOSPHATASE 70 39 - 117 U/L [facility] TOTAL BILIRUBIN 0.8 0.0 - 1.2 mg/dL [facility] AST 39(H) 0 - 37 U/L [facility] ALT 65(H) 0 - 40 U/L [facility] GLOBULIN 3.2 1 - 4.8 g/dL [facility] EGFR 74 >59 mL/min/1.7 3m2 [facility] Comment:If patient is black, multiply result by 1.159. Estimated glomerular filtration rate calculated using the CKD-EPI equation. ANION GAP 18 10 - 20 mmol/L [facility] Blood 02/24/2018 8:19 AM EDT 02/24/2018 8:21 AM EDT Reg Laboy MD LAB BLOOD ORDERABLES Julia l Result [facility] [address] [place] [address] documented in this encounter Visit Diagnoses Diagnosis Essential hypertension, malignant- Primary Coronary artery disease without angina pectoris, unspecified vessel or lesion type, unspecified whether [place] or transplanted heart Vitamin D deficiency disease Unspecified vitamin D deficiency Hyperlipidemia, unspecified hyperlipidemia type documented in this encounter Care Teams Active Directory Systems Administrator Relationship Specialty Start Date End Date Reg Laboy MD [address] [place] [address] [place] [address] PCP - General Internal Medicine 06/03/16 Edwardo Yin MD [address] [place] [address] [place] [address] [email or web address] Collar Shaper Operator Cardiology 06/22/16 documented as of this encounter Additional Source Comments The information contained in this document represents components of the legal health record. It is not the complete legal health record.[facility]
--- OUTSIDE RECORDS SUMMARY | 2025-02-27 10:54 | XMS_ITS | Encounter Summary ---
Author Organization [facility] Address [address] [facility] [address] [place] [address] Phone Care Team Providers Care Forecast Analyst Name Role Phone Reg Laboy MD Primary Care Provider [phone] Edwardo Yin MD Unavailable [phone] Reason for Referral * MRI/CAT Scan - Closed Specialty Diagnoses / Procedures Referred By Evan gaston Referred To Contact Radiology Diagnoses Stable angina pectoris Procedures NC Myocardial Perfusion Pharmacologic Stress Multiple NC Myocardial Perfusion Exercise Multiple Edwardo Garcia MD Phone: tel: fax: mailto:[email or web address] Referral ID Status Reason Start Date Expiration Date Visits Re quested Visits Authorized [id number] Closed 04/05/2024 1 1 Encounter Details Date Type Department Care Team (Latest Contact Info) Description 04/20/2024 Ancillary Orders [facility] [address] [place] [address] 3rd Floor, [address] [place] [address] Edwardo Garcia MD [address] [place] [address], [address] [id number] [email or web address] Atherosclerosis of [place] coronary artery of [place] heart without angina pectoris (Primary Dx); Primary [...] Description 07/18/2025 8:40 AM EST Office Visit [facility] [address] [place] [address] 3rd Floor, [address] [place] [address] Edwardo Garcia MD [address] [facility], [address] [address] [email or web address] documented as of this encounter Results * [...] in SPECT format, reconstructed tomographically and compared [id number] in short axis, horizontal long axis and [...] of Tc99m Sestamibi by Ming Martinez, the nuclear instructor. 1. EKG - Baseline EKG showed sinus [...] Diagnosis Stable angina pectoris- Primary Atherosclerosis of [place] coronary artery of [place] heart without angina pectoris- Primary Primary hypertension Unspecified essential hypertension Pure hypercholesterolemia Stable angina pectoris documented in this encounter Care Teams Forecast Analyst Relationship Specialty Start Date End Date Reg Laboy MD [address] [place] [address] [place] [address] PCP - General Internal Medicine 06/03/16 Edwardo Yin MD [address] [place] [address] [place] [address] [email or web address] Laborer Marine Terminal Cardiology 06/22/16 documented as of this encounter Additional Source Comments The information contained in this document represents components of the legal health record. It is not the complete legal health record.[facility]
--- OUTSIDE RECORDS SUMMARY | 2025-02-27 10:54 | XMS_ITS | Encounter Summary ---
Author Organization [facility] Address [address] [place] [address] Phone Care Team Providers Care Beef Cattle Grazier Name Role Phone Reg Laboy MD Primary Care Provider [phone] Edwardo Yin MD Unavailable [phone] Encounter Details Date Type Department Care Team (Latest Contact Info) Description 06/18/2017 Transcribe Orders [facility] [address] [place] [address] [place] [address] Reg Laboy MD [address] [place] [address] [address] Atherosclerosis of [place] coronary artery of [place] heart without angina pectoris (Primary Dx); Pure [...] Description 07/18/2025 8:40 AM EST Office Visit [facility] [address] [place] [address] Dr 3rd Floor, [address] [place] [address] Edwardo Garcia MD [address] [facility], [address] [place] [address] [id number] [email or web address] documented as of this encounter Procedures Procedure Name Priority Date/Time Associated Diagnosis Comments COMPREHENSIVE METABOLIC PANEL Routine 06/18/2017 8:30 AM EST Atherosclerosis of [place] coronary artery of [place] heart without angina pectoris Pure hypercholesterolem ia Chronic kidney disease, stage III (moderate) Severely overweight TSH WITH REFLEX Routine 06/18/2017 8:30 AM EST Atherosclerosis of [place] coronary artery of [place] heart without angina pectoris Pure hypercholesterolem ia Chronic kidney disease, stage III (moderate) Severely overweight 25-[place] VITAMIN D Routine 06/18/2017 8:30 AM EST Atherosclerosis of [place] coronary artery of [place] heart without angina pectoris Pure hypercholesterolem ia Chronic kidney disease, stage III (moderate) Severely overweight URINALYSIS Routine 06/18/2017 8:30 AM EST Atherosclerosis of [place] coronary artery of [place] heart without angina pectoris Pure hypercholesterolem ia Chronic kidney disease, stage III (moderate) Severely overweight CBC AND DIFFERENTIAL Routine 06/18/2017 8:30 AM EST Atherosclerosis of [place] coronary artery of [place] heart without angina pectoris Pure hypercholesterolem ia Chronic kidney disease, stage III (moderate) Severely overweight LIPID PANEL Routine 06/18/2017 8:30 AM EST Atherosclerosis of [place] coronary artery of [place] heart without angina pectoris Pure hypercholesterolem ia Chronic kidney disease, stage III (moderate) Severely overweight documented in this encounter Results * 25-OH vitamin D (06/18/2017 8:30 AM EST) 25 [place] VIT D (TOTAL) 37 30 - 1,000 ng/mL [facility] Blood 06/18/2017 8:30 AM EST 06/18/2017 8:33 AM EST us Reg Laboy MD LAB BLOOD ORDERABLES Julia l Result [facility] [address] [place] [address] * Urinalysis (06/18/2017 8:30 AM EST) COLOR Yellow Yellow [facility] CLARITY Clear [facility] GLUCOSE Negative Negative [facility] BILI Negative Negative [facility] KETONES Negative Negative [facility] SPECIFIC GRAVITY 1.020 1.005 - 1.030 [facility] BLOOD Negative Negative [facility] PH 6.5 5.0 - 8.0 [facility] Protein-UA Negative Negative [facility] NITRITE Negative Negative [facility] Leukocyte esterase, ur Negative Negative [facility] Urine (Urine) 06/18/2017 8:3 0 AM EST 06/18/2017 8:35 AM EST Reg Laboy MD URINE ORDERABLES Final Re sult Performing Organization Address City/[facility]/ZIP Co de Phone Number [address] [address] * TSH with reflex (06/18/2017 8:30 AM EST) TSH 2.62 0.27 - 4.20 uIU/mL [facility] Blood 06/18/2017 8:30 AM EST 06/18/2017 8:33 AM EST us Reg Laboy MD LAB BLOOD ORDERABLES Julia l Result Performing Organization Address City/[facility]/ZIP Co de Phone Number [address] [address] * CBC and differential (06/18/2017 8:30 AM EST) WBC 7.02 3.40 - 11.20 K/uL [facility] RBC 4.90 4.50 - 5.50 M/uL [facility] HGB 14.9 13.0 - 17.0 g/dL [facility] HCT 45.1 40.0 - 51.0 % [facility] PLT 219 130 - 400 K/uL [facility] MCV 92.0 79.0 - 98.0 fL [facility] MCH 30.4 27.0 - 34.8 pg [facility] MCHC 33.0 31.5 - 36.0 g/dL [facility] RDW 13.9 10.8 - 14.6 % [facility] MPV 10.0 9.4 - 12.4 fl [facility] NRBC 0.00 /100 WBCs [facility] ABSOLUTE NRBC 0.00 K/uL [facility] DIFF METHOD Auto [facility] NEUTS 61.4 45.30 - 77.70 % [facility] LYMPHS 27.1 12.30 - 39.70 % [facility] MONOS 7.8 4.10 - 12.80 % [facility] EOS 3.0 0 - 7.2 % [facility] BASOS 0.6 0 - 2.80 % [facility] Granulocytes, immature (%) 0.1 0.0 - 0.9 % [facility] ABSOLUTE NEUTS 4.31 1.40 - 7.70 K/uL [facility] ABSOLUTE LYMPHS 1.90 0.60 - 3.20 K/uL [facility] ABSOLUTE MONOS 0.55 0.11 - 0.59 K/uL [facility] ABSOLUTE EOS 0.21 0.01 - 0.50 K/uL [facility] ABSOLUTE BASOS 0.04 0.00 - 0.08 K/uL [facility] Granulocytes, immature 0.01 0.00 - 0.05 K/uL [facility] Blood 06/18/2017 8:30 AM EST 06/18/2017 8:33 AM EST us Reg Laboy MD LAB BLOOD ORDERABLES Julia l Result [facility] [address] [place] [address] * (ABNORMAL) Lipid panel (06/18/2017 8:30 AM EST) HDL 39 mg/dL [facility] Comment: Interpretation: Risk Level Males Decreased >45 mg/dL Average 40-45 mg/dL Increased <40 mg/dL CHOLESTEROL 112 0 - 240 mg/dL [facility] TRIGLYCERIDES 76 30 - 160 mg/dL [facility] LDL 58 50 - 129 mg/dL [facility] Comment: LDL levels in terms of risk for coronary heart disease: <100 mg/dL: Optimal 100-129 mg/dL: Near or above optimal 130-159 mg/dL: Borderline high 160-189 mg/dL: High >190 mg/dL: Very High CARDIAC RISK RATIO 2.9(L) 3.4 - 5.0 C [facility] Blood 06/18/2017 8:30 AM EST 06/18/2017 8:33 AM EST us Reg Laboy MD LAB BLOOD ORDERABLES Julia kc Result [facility] [address] [place] [address] * (ABNORMAL) Comprehensive metabolic panel (06/18/2017 8:30 AM EST) SODIUM 139 133 - 146 mmol/L [facility] POTASSIUM 4.1 3.3 - 5.1 mmol/L [facility] CHLORIDE 103 96 - 108 mmol/L [facility] CO2 28 21 - 35 mmol/L [facility] BUN 21(H) 6 - 19 mg/dL [facility] CREATININE 1.10 0.5 - 1.5 mg/dL [facility] GLUCOSE 105(H) 70 - 99 mg/dL [facility] ALBUMIN 4.1 3.9 - 4.8 g/dL [facility] TOTAL PROTEIN 7.2 6.5 - 8.0 g/dL [facility] CALCIUM 8.9 8.4 - 10.3 mg/dL [facility] ALKALINE PHOSPHATASE 69 39 - 117 U/L [facility] TOTAL BILIRUBIN 1.0 0 - 1.2 mg/dL [facility] AST 19 0 - 37 U/L [facility] ALT 33 0 - 40 U/L [facility] GLOBULIN 3.1 1 - 4.8 g/dL [facility] EGFR >60 mL/min/1.7 3m2 [facility] Comment:Abnormal if <60. If patient is -[place], multiply the result by 1.21. ANION GAP 12 10 - 20 mmol/L [facility] Blood 06/18/2017 8:30 AM EST 06/18/2017 8:33 AM EST Reg Laboy MD LAB BLOOD ORDERABLES Julia l Result [address] [address] documented in this encounter Visit Diagnoses Diagnosis Atherosclerosis of [place] coronary artery of [place] heart without angina pectoris- Primary Pure hypercholesterolemia Chronic kidney disease, stage III (moderate) Chronic kidney disease, Stage III (moderate) Severely overweight Morbid obesity documented in this encounter Care Teams Beef Cattle Grazier Relationship Specialty Start Date End Date Reg Laboy MD [address] [place] [address] [place] [address] PCP - General Internal Medicine 06/03/16 Edwardo Yin MD [address] [place] [address] [place] [id number] [email or web address]yer Cardiology 06/22/16 documented as of this encounter Additional Source Comments The information contained in this document represents components of the legal health record. It is not the complete legal health record.[facility]
--- OUTSIDE RECORDS SUMMARY | 2025-02-27 10:54 | XMS_ITS | Encounter Summary ---
Author Organization [facility] Address [address] [address] Phone Care Team Providers Care Production Clerk Name Role Phone Reg Laboy MD Primary Care Provider [phone] Edwardo Yin MD Unavailable [phone] Encounter Details Date Type Department Care Team (Late st Contact Info) Description 03/02/2023 Procedure Pass Echo [facility] [address] [place] [address] Social History Tobacco Use Types Packs/Day Years [...] Description 07/18/2025 8:40 AM EST Office Visit [facility] [address] [place] [address] 3rd Floor, [address] [place] [address] Edwardo Gacria MD [address] [facility], [address] [place] [address] [email or web address] documented as of this encounter Visit Diagnoses Not on filedocumented in this encounter Care Teams Production Clerk Relationship Specialty Start Date End Date Reg Laboy MD [address] [place] [address] Dr Royal [address] [place] [id number] PCP - General Internal Medicine 06/03/16 Edwardo Yin MD [address] [place] [address] Dr Royal [address] [place] [address] [email or web address] Portfolio Consultant Cardiology 06/22/16 documented as of this encounter Additional Source Comments The information contained in this document represents components of the legal health record. It is not the complete legal health record.[facility]
--- OUTSIDE RECORDS SUMMARY | 2025-02-27 10:54 | XMS_ITS | Clinical Summary ---
Author Organization [facility] Address [address] [address] Phone Care Team Providers Care Qa Engineer Name Role Phone Reg Laboy MD Primary Care Provider [phone] Edwardo Yin MD Unavailable [phone] Allergies Active Allergy Reactions Criticality Noted [...] (PRINIVIL,ZESTRIL ) 40 MG tabletIndications :Atherosclerosis of [place] coronary artery of [place] heart without angina pectoris TAKE ONE TABLET [...] swelling of knee, left 02/06/2019 Atherosclerosis of [place] co ronary artery of [place] heart without angina pectoris 05/17/2017 Overview (05/17/2017): [...] generally active. Follow-up in 6 months with head stock operator. Assessment & Plan (07/10/2024 9:36 AM EST): [...] profile checked at his primary care's to [facility]. He will remain on atorvastatin 80 [...] gets his labs through PCP office at [place]. Trying to follow a low-sodium diet and [...] Description 01/15/2025 9:30 AM EDT Office Visit [facility] [address] Floor, [address] [place] [address] Vi Jones PA-C Atherosclerosis of [place] coronary artery of [place] heart without angina pectoris (Primary Dx); Primary hypertension; Pure hypercholesterolemia; Mitral valve insufficiency, unspecified etiology; Bradycardia 12/04/2024 Refill [facility] [address] Floor, [address] [place], [place] [id number] Edwardo Garcia MD Medication Refill from Last [...] Description 07/18/2025 8:40 AM EST Office Visit [facility] [address] [place] [address] 3rd Floor, [address] [place] [address] Edwardo Garcia MD [address] [place] [address], [address] [place] [address] [email or web address] Health Maintenance Due Date Last Done Comments [...] EDT) SODIUM 139 133 - 146 mmol/L [facility] CHLORIDE 104 96 - 108 mmol/L [facility] POTASSIUM 4.6 3.3 - 5.1 mmol/L [facility] CO2 25 21 - 35 mmol/L [facility] BUN 19 6 - 19 mg/dL [facility] CREATININE 0.90 0.5 - 1.5 mg/dL [facility] GLUCOSE 103(H) 70 - 99 mg/dL [facility] CALCIUM 9.4 8.4 - 10.3 mg/dL [facility] EGFR 83 >59 mL/min/1.7 3m2 [facility] Comment:If patient is black, multiply result by 1.159. Estimated glomerular filtration rate calculated using the CKD-EPI equation. ANION GAP 15 10 - 20 mmol/L [facility] Blood 11/15/2019 9:14 AM EDT 11/15/2019 9:17 AM EDT us Edwardo Yin MD LAB BLOOD ORDERABLES Final Resu lt [facility] [address] [place] [address] from Last 3 Months or Most Recently Relevant to Health Maintenance Insurance MEDICARE PART A & B Member Subscriber Plan / Payer (Ef fective 2009-Present) Name:Radha Stevenson Member ID:[id number] Relation to Subscriber:Self Name:Radah Stevenson Subscriber ID:[id number] Payer ID:[id number] Group ID:Not on file Type:Medicare Address: [facility] [employer] Outreach Program [facility] [address] [place] [address] [employer] CROSS MEDEX SUPPLEMENT MEDICARE PART A & B [employer] MEDEX SUPPLEMENT MEDICARE PART A & B [employer] MEDEX SUPPLEMENT MEDICARE PART A & B [facility] MEDEX SUPPLEMENT MEDICARE PART A & B [employer] CROSS MEDEX SUPPLEMENT MEDICARE PART A & B [employer] MEDEX SUPPLEMENT MEDICARE PART A & B [employer] CROSS MEDEX SUPPLEMENT MEDICARE PART A & B [employer] CROSS MEDEX SUPPLEMENT MEDICARE PART A & B [employer]EX SUPPLEMENT Care Teams Qa Engineer Relationship Specialty Start Date End Date Reg Laboy MD [address] [place] [address] [place] [address] PCP - General Internal Medicine 06/03/16 Edwardo Yin MD [address] [place] [address] [place] [address] [email or web address] Turner Cardiology 06/22/16 Additional Source Comments The information contained in this document represents components of the legal health record. It is not the complete legal health record.[facility]
== END 2025-02-27 10:42 | disposition home or self-care (01) ==
PROVIDERS: PCP Internal Medicine; Visit Provider Internal Medicine
DX: I25.10 Atherosclerotic heart disease of native coronary artery without angina pectoris (principal); E78.00 Pure hypercholesterolemia, unspecified; I10 Essential (primary) hypertension; J45.20 Mild intermittent asthma, uncomplicated; G47.33 Obstructive sleep apnea (adult) (pediatric); R73.01 Impaired fasting glucose; R74.01 Elevation of levels of liver transaminase levels; E55.9 Vitamin D deficiency, unspecified; L30.9 Dermatitis, unspecified; N40.1 Benign prostatic hyperplasia with lower urinary tract symptoms

== ENCOUNTER → 2025-02-27 09:54 | Outpatient (BNVA) | payer MEDICARE, SELFPAY | PROVIDERS: PCP Internal Medicine; Visit Provider Internal Medicine | DX: I25.10 Atherosclerotic heart disease of native coronary artery without angina pectoris (principal); R79.89 Other specified abnormal findings of blood chemistry; J45.909 Unspecified asthma, uncomplicated; I10 Essential (primary) hypertension; E78.00 Pure hypercholesterolemia, unspecified; J45.20 Mild intermittent asthma, uncomplicated; G47.33 Obstructive sleep apnea (adult) (pediatric); R73.01 Impaired fasting glucose; R74.01 Elevation of levels of liver transaminase levels; E55.9 Vitamin D deficiency, unspecified; L30.9 Dermatitis, unspecified; N40.1 Benign prostatic hyperplasia with lower urinary tract symptoms | CPT/HCPCS: 99212 ==

== ENCOUNTER 2025-03-13 08:59 | Outpatient (AMB) | payer MEDICARE, SELFPAY ==
--- OUTSIDE RECORDS SUMMARY | 2016-05-05 01:00 | XMS_ITS | Encounter Summary ---
Author Organization [facility] Address [address] [facility] [facility] [address] [place] [phone] Phone Care Team Providers Care Estate Tax Examiner Name Role Phone Unavailable Primary Care Provider Unavailabl e Encounter Details Date Type Department Care Team (Late st Contact Info) Description 05/05/2016 Hospital Encounter [facility] [address] [place] [address] Abdirizak Farmer MD [email or web address] Social History Tobacco Use Types Packs/Day Years [...] Description 07/18/2025 8:40 AM EST Office Visit [facility] [address] [facility] 3rd [address], [address] [place] [address] Edwardo Garcia MD [address] [facility], [address] [place] [address] [email or web address] documented as of this encounter Procedures Procedure Name Priority Date/Time Associated Diagnosis Comments FL CARDIAC OUTSIDE (NO INTERPRETATION) Routine 05/05/2016 12:00 AM EST documented in this encounter Results * [place] Cardiac Outside (No Interpretation) (05/05/2016 12:00 AM EST) Narrative [facility] IMG INTERFACES - 06/30/2016 10:25 AM EST This study is for PACS storage only and not for interpretation. Abdirizak Kauffman-The talat [facility] IMG OUTSIDE IMAGING W/OUT INTERPRETATION Final Result [facility] IMG INTERFACES documented in this encounter Visit Diagnoses Not on filedocumented in this encounter Additional Source Comments The information contained in this document represents components of the legal health record. It is not the complete legal health record.[facility]
--- NOTE | 2025-03-13 09:13 | AM.OFFVISNUR ---
Intake Visit Reasons: Flu Shot Allergies Cephalosporins Allergy (Mild, Verified 02/27/25 10:22) Unknown cefazolin Allergy (Unknown, Verified 02/27/25 10:22) Unknown clindamycin Adverse Reaction (Intermediate, Verified 02/27/25 10:22) constipation,abdominal discomfort pneumococcal vaccine Adverse Reaction (Unknown, Verified 02/27/25 10:22) arm swelling Office Procedures Flu Questionnaire Does the patient have a severe egg allergy?: No Does the patient have severe life threatening allergies?: No Does the patient have a fever or illness today?: No Has the patient ever had Guillain-Peterson Syndrome?: No Has the patient ever had any past reaction to a flu shot?: No Immunizations Fluarix [id number] (PF) 45 mcg (15 mcg x 3)/0.5 mL IM syringe Performing Provider: Reg Laboy MD Performing [facility] Administered by: Almaz Hamilton LPN on 03/13/25 09:13 Dose Route Admin Location Dispensed Lot Number Expiration Date [facility] Wealth Management Director 0.5 mL IM Left Deltoid 0.5 mL [id number] 11/27/24 54110-660-35 [employer] VIS Given Date VIS Provided VIS Publication Date 03/13/25 Single Vaccine 24 Eligibility Eligibility Date Funding Source Not [facility] Eligible 03/13/25 Private Assessment & Plan Assessment & Plan Orders: Orders Influenza [id number] Immunization Today Z23 - Encounter for immunization Coding
--- OUTSIDE RECORDS SUMMARY | 2025-03-13 09:36 | XMS_ITS | Encounter Summary ---
Author Organization [facility] Address [address] [facility] [address] [place] [address] Phone Care Team Providers Care Strap Sewer Name Role Phone Reg Laboy MD Primary Care Provider [phone] Edwardo Yin MD Unavailable [phone] Encounter Details Date Type Department Care Team (Latest Contact Info) Description 10/21/2017 Transcribe Orders [facility] [address] [place] [address] Reg Laboy MD [address] [place] [address] [address] Essential hypertension, benign (Primary Dx); Hyperlipidemia, unspecified [...] Description 07/18/2025 8:40 AM EST Office Visit [facility] [address] Floor, [address] [place] [address] Edwardo Garcia MD 22 [facility], [address] [id number] documented as of this encounter Results * (ABNORMAL) Urine sediment (10/21/2017 8:58 AM EDT) WBC 0-4(A) NONE SEEN /hpf [facility] RBC 0-2(A) NONE SEEN /hpf [facility] URINE EPITHELIAL 11-20(A) NONE SEEN [facility] MUCUS NONE SEEN NONE SEEN /hpf [facility] BACTERIA Trace(A) NONE SEEN [facility] Urine (Urine) 10/21/2017 8:5 8 AM EDT 10/21/2017 9:00 AM EDT us Reg Laboy MD URINE ORDERABLES Final Re sult Performing Organization Address [facility]/ZIP Co de Phone Number [address] [address] * TSH with reflex (10/21/2017 8:53 AM EDT) TSH 3.07 0.27 - 4.20 uIU/mL [facility] Blood 10/21/2017 8:53 AM EDT 10/21/2017 8:57 AM EDT us Reg Laboy MD LAB BLOOD ORDERABLES Julia l Result Performing Organization Address [facility]/ZIP Co de Phone Number [address] [address] * 25-OH vitamin D (10/21/2017 8:53 AM EDT) 25 [place] VIT D (TOTAL) 39 30 - 1,000 ng/mL [facility] Blood 10/21/2017 8:53 AM EDT 10/21/2017 8:57 AM EDT us Reg Laboy MD LAB BLOOD ORDERABLES Julia l Result Performing Organization Address [facility]/ZIP Co de Phone Number [address] [address] * (ABNORMAL) CBC and differential (10/21/2017 8:53 AM EDT) WBC 7.07 3.40 - 11.20 K/uL [facility] RBC 4.81 4.50 - 5.50 M/uL [facility] HGB 14.8 13.0 - 17.0 g/dL [facility] HCT 44.6 40.0 - 51.0 % [facility] PLT 200 130 - 400 K/uL [facility] MCV 92.7 79.0 - 98.0 fL [facility] MCH 30.8 27.0 - 34.8 pg [facility] MCHC 33.2 31.5 - 36.0 g/dL [facility] RDW 14.2 10.8 - 14.6 % [facility] MPV 10.5 9.4 - 12.4 fl [facility] NRBC 0.00 /100 WBCs [facility] ABSOLUTE NRBC 0.00 K/uL [facility] DIFF METHOD Auto [facility] NEUTS 53.8 45.30 - 77.70 % [facility] LYMPHS 32.0 12.30 - 39.70 % [facility] MONOS 9.2 4.10 - 12.80 % [facility] EOS 4.0 0 - 7.2 % [facility] BASOS 0.7 0 - 2.80 % [facility] Granulocytes, immature (%) 0.3 0.0 - 0.9 % [facility] ABSOLUTE NEUTS 3.81 1.40 - 7.70 K/uL [facility] ABSOLUTE LYMPHS 2.26 0.60 - 3.20 K/uL [facility] ABSOLUTE MONOS 0.65(H) 0.11 - 0.59 K/uL [facility] ABSOLUTE EOS 0.28 0.01 - 0.50 K/uL [facility] ABSOLUTE BASOS 0.05 0.00 - 0.08 K/uL [facility] Granulocytes, immature 0.02 0.00 - 0.05 K/uL [facility] Blood 10/21/2017 8:53 AM EDT 10/21/2017 8:57 AM EDT us Reg Laboy MD LAB BLOOD ORDERABLES Julia l Result [address] [address] * (ABNORMAL) Lipid panel (10/21/2017 8:53 AM EDT) HDL 40 mg/dL [facility] Comment: Interpretation: Risk Level Males Decreased >45 mg/dL Average 40-45 mg/dL Increased <40 mg/dL CHOLESTEROL 106 0 - 240 mg/dL [facility] TRIGLYCERIDES 83 30 - 160 mg/dL [facility] LDL 49(L) 50 - 129 mg/dL [facility] Comment: LDL levels in terms of risk for coronary heart disease: <100 mg/dL: Optimal 100-129 mg/dL: Near or above optimal 130-159 mg/dL: Borderline high 160-189 mg/dL: High >190 mg/dL: Very High CARDIAC RISK RATIO 2.7(L) 3.4 - 5.0 [facility] Blood 10/21/2017 8:53 AM EDT 10/21/2017 8:57 AM EDT Reg Laboy MD LAB BLOOD ORDERABLES Julia l Result [address] [address] * (ABNORMAL) Comprehensive metabolic panel (10/21/2017 8:53 AM EDT) SODIUM 142 133 - 146 mmol/L [facility] POTASSIUM 4.3 3.3 - 5.1 mmol/L [facility] CHLORIDE 103 96 - 108 mmol/L [facility] CO2 27 21 - 35 mmol/L [facility] BUN 18 6 - 19 mg/dL [facility] CREATININE 1.10 0.5 - 1.5 mg/dL [facility] GLUCOSE 107(H) 70 - 99 mg/dL [facility] ALBUMIN 4.1 3.9 - 4.8 g/dL [facility] TOTAL PROTEIN 7.2 6.5 - 8.0 g/dL [facility] CALCIUM 9.1 8.4 - 10.3 mg/dL [facility] ALKALINE PHOSPHATASE 76 39 - 117 U/L [facility] TOTAL BILIRUBIN 0.9 0.0 - 1.2 mg/dL [facility] AST 22 0 - 37 U/L [facility] ALT 39 0 - 40 U/L [facility] GLOBULIN 3.1 1 - 4.8 g/dL [facility] EGFR 66 >59 mL/min/1.7 3m2 [facility] Comment:If patient is black, multiply result by 1.159. The eGFR calculation has changed from the MDRD equation to the CKD-EPI equation as of August 03, 2017. ANION GAP 16 10 - 20 mmol/L [facility] Blood 10/21/2017 8:53 AM EDT 10/21/2017 8:57 AM EDT Reg Laboy MD LAB BLOOD ORDERABLES Julia l Result Performing Organization Address City/State/[facility] Co de Phone Number [address] [address] documented in this encounter Visit Diagnoses Diagnosis Essential hypertension, benign- Primary Hyperlipidemia, unspecified hyperlipidemia type Disease of cardiovascular system Unspecified cardiovascular disease Avitaminosis D Unspecified vitamin D deficiency documented in this encounter Care Teams Strap Sewer Relationship Specialty Start Date End Date Reg Laboy MD [address] [place] [address] [place] [address] PCP - General Internal Medicine 06/03/16 Edwardo Yin MD [address] [place] [address] [place] [address] [email or web address] Finish Photographer Cardiology 06/22/16 documented as of this encounter Additional Source Comments The information contained in this document represents components of the legal health record. It is not the complete legal health record.[facility]
--- OUTSIDE RECORDS SUMMARY | 2025-03-13 09:36 | XMS_ITS | Encounter Summary ---
Author Organization [facility] Address [address] [facility] [address] [place] [address] Phone Care Team Providers Care Fire Management Specialist Name Role Phone Reg Laboy MD Primary Care Provider [phone] Edwardo Yin MD Unavailable [phone] Reason for Referral * MRI/CAT Scan - Closed Specialty Diagnoses / Procedures Referred By Evan gaston Referred To Contact Radiology Diagnoses Stable angina pectoris Procedures NC Myocardial Perfusion Pharmacologic Stress Multiple NC Myocardial Perfusion Exercise Multiple Edwardo Garcia MD Phone: tel: fax: mailto:[email or web address] Referral ID Status Reason Start Date Expiration Date Visits Re quested Visits Authorized [id number] Closed 04/05/2024 1 1 Encounter Details Date Type Department Care Team (Latest Contact Info) Description 04/20/2024 Ancillary Orders [facility] [address] [place] [address] 3rd Floor, [address] [place] [address] Edwardo Garcia MD [address] [facility], [address] [id number] [email or web address] Atherosclerosis of [place] coronary artery of [place] heart without angina pectoris (Primary Dx); Primary [...] Description 07/18/2025 8:40 AM EST Office Visit [facility] [address] [place] [address] 3rd Floor, [address] [place] [address] Edwardo Garcia MD [address] [facility], [address] [address] [email or web address] documented as of this encounter Results * [...] in SPECT format, reconstructed tomographically and compared [id number] in short axis, horizontal long axis and [...] [id number] Sestamibi by Ming Martinez, the nuclear powerplant supervisor. 1. EKG - Baseline EKG showed sinus [...] Diagnosis Stable angina pectoris- Primary Atherosclerosis of [place] coronary artery of [place] heart without angina pectoris- Primary Primary hypertension Unspecified essential hypertension Pure hypercholesterolemia Stable angina pectoris documented in this encounter Care Teams Fire Management Specialist Relationship Specialty Start Date End Date Reg Laboy MD [address] [place] [address] [place] [address] PCP - General Internal Medicine 06/03/16 Edwardo Yin MD [address] [place] [address] [place] [address] [email or web address] Java Android Developer Cardiology 06/22/16 documented as of this encounter Additional Source Comments The information contained in this document represents components of the legal health record. It is not the complete legal health record.[facility]
--- OUTSIDE RECORDS SUMMARY | 2025-03-13 09:36 | XMS_ITS | Encounter Summary ---
Author Organization [facility] Address [address] [place] [address] [place] [address] Phone Care Team Providers Care Senior Director Finance Name Role Phone Reg Laboy MD Primary Care Provider [phone] Edwardo Yin MD Unavailable [phone] Encounter Details Date Type Department Care Team (Latest Contact Info) Description 02/24/2018 Transcribe Orders [facility] [address] [place] [address] [place] [address] Reg Laboy MD [address] [place] [address] [address] Essential hypertension, malignant (Primary Dx); Coronary artery disease without angina pectoris, unspecified vessel or lesion type, unspecified whether [place]western shoshone or transplanted heart; Vitamin D deficiency disease; [...] Description 07/18/2025 8:40 AM EST Office Visit [facility] [address] [place] [address] [address]rd Floor, [address] [place] [address] Edwardo Garcia MD [address], [address] [place] [address] [email or web address] documented as of this encounter Results * (ABNORMAL) Urine sediment (02/24/2018 8:22 AM EDT) WBC NONE SEEN NONE SEEN /hpf [facility] RBC 0-2(A) NONE SEEN /hpf [facility] URINE EPITHELIAL 0-4(A) NONE SEEN [facility] MUCUS Trace(A) NONE SEEN /hpf [facility] BACTERIA NONE SEEN NONE SEEN [facility] Urine (Urine) 02/24/2018 8:2 2 AM EDT 02/24/2018 8:24 AM EDT us Reg Laboy MD URINE ORDERABLES Final Re sult Performing Organization Address [facility] Co de Phone Number [address] [address] * TSH with reflex (02/24/2018 8:19 AM EDT) TSH 3.34 0.27 - 4.20 uIU/mL [facility] Blood 02/24/2018 8:19 AM EDT 02/24/2018 8:21 AM EDT Reg Laboy MD LAB BLOOD ORDERABLES Julia l Result Performing Organization Address [facility]/ZIP Co de Phone Number [address] [address] * 25-OH vitamin D (02/24/2018 8:19 AM EDT) 25 OH VIT D (TOTAL) 45 30 - 60 ng/mL [facility] Blood 02/24/2018 8:19 AM EDT 02/24/2018 8:21 AM EDT us Reg Laboy MD LAB BLOOD ORDERABLES Julia l Result Performing Organization Address [facility]/ZIP Co de Phone Number [facility] [address] [place] [address] * (ABNORMAL) CBC and differential (02/24/2018 8:19 AM EDT) WBC 7.51 3.40 - 11.20 K/uL [facility] RBC 4.78 4.50 - 5.50 M/uL [facility] HGB 15.0 13.0 - 17.0 g/dL [facility] HCT 44.8 40.0 - 51.0 % [facility] PLT 196 130 - 400 K/uL [facility] MCV 93.7 79.0 - 98.0 fL [facility] MCH 31.4 27.0 - 34.8 pg [facility] MCHC 33.5 31.5 - 36.0 g/dL [facility] RDW 14.3 10.8 - 14.6 % [facility] MPV 10.5 9.4 - 12.4 fl [facility] NRBC 0.00 /100 WBCs [facility] ABSOLUTE NRBC 0.00 K/uL [facility] DIFF METHOD Auto [facility] NEUTS 57.1 45.30 - 77.70 % [facility] LYMPHS 29.7 12.30 - 39.70 % [facility] MONOS 8.1 4.10 - 12.80 % [facility] EOS 4.0 0 - 7.2 % [facility] BASOS 0.7 0 - 2.80 % [facility] Granulocytes, immature (%) 0.4 0.0 - 0.9 % [facility] ABSOLUTE NEUTS 4.29 1.40 - 7.70 K/uL [facility] ABSOLUTE LYMPHS 2.23 0.60 - 3.20 K/uL [facility] ABSOLUTE MONOS 0.61(H) 0.11 - 0.59 K/uL [facility] ABSOLUTE EOS 0.30 0.01 - 0.50 K/uL [facility] ABSOLUTE BASOS 0.05 0.00 - 0.08 K/uL [facility] Granulocytes, immature 0.03 0.00 - 0.05 K/uL [facility] Blood 02/24/2018 8:19 AM EDT 02/24/2018 8:21 AM EDT Reg Laboy MD LAB BLOOD ORDERABLES Julia l Result [address] [address] * Lipid panel (02/24/2018 8:19 AM EDT) HDL 36 mg/dL [facility] Comment: Interpretation: Risk Level Males Decreased >45 mg/dL Average 40-45 mg/dL Increased <40 mg/dL CHOLESTEROL 123 0 - 240 mg/dL [facility] TRIGLYCERIDES 115 30 - 160 mg/dL [facility] LDL 64 50 - 129 mg/dL [facility] Comment: LDL levels in terms of risk for coronary heart disease: <100 mg/dL: Optimal 100-129 mg/dL: Near or above optimal 130-159 mg/dL: Borderline high 160-189 mg/dL: High >190 mg/dL: Very High CARDIAC RISK RATIO 3.4 3.4 - 5.0 [facility] Blood 02/24/2018 8:19 AM EDT 02/24/2018 8:21 AM EDT Reg Laboy MD LAB BLOOD ORDERABLES Julia l Result Performing Organization Address City/[facility]/ZIP Co de Phone Number [address] [address] * (ABNORMAL) Comprehensive metabolic panel (02/24/2018 8:19 AM EDT) SODIUM 139 133 - 146 mmol/L [facility] POTASSIUM 4.6 3.3 - 5.1 mmol/L [facility] CHLORIDE 101 96 - 108 mmol/L [facility] CO2 25 21 - 35 mmol/L [facility] BUN 21(H) 6 - 19 mg/dL [facility] CREATININE 1.00 0.5 - 1.5 mg/dL [facility] GLUCOSE 105(H) 70 - 99 mg/dL [facility] ALBUMIN 4.2 3.9 - 4.8 g/dL [facility] TOTAL PROTEIN 7.4 6.5 - 8.0 g/dL [facility] CALCIUM 9.3 8.4 - 10.3 mg/dL [facility] ALKALINE PHOSPHATASE 70 39 - 117 U/L [facility] TOTAL BILIRUBIN 0.8 0.0 - 1.2 mg/dL [facility] AST 39(H) 0 - 37 U/L [facility] ALT 65(H) 0 - 40 U/L [facility] GLOBULIN 3.2 1 - 4.8 g/dL [facility] EGFR 74 >59 mL/min/1.7 3m2 [facility] Comment:If patient is black, multiply result by 1.159. Estimated glomerular filtration rate calculated using the CKD-EPI equation. ANION GAP 18 10 - 20 mmol/L [facility] Blood 02/24/2018 8:19 AM EDT 02/24/2018 8:21 AM EDT Reg Laboy MD LAB BLOOD ORDERABLES Julia l Result [facility] [address] [place] [address] documented in this encounter Visit Diagnoses Diagnosis Essential hypertension, malignant- Primary Coronary artery disease without angina pectoris, unspecified vessel or lesion type, unspecified whether [place] or transplanted heart Vitamin D deficiency disease Unspecified vitamin D deficiency Hyperlipidemia, unspecified hyperlipidemia type documented in this encounter Care Teams Senior Director Finance Relationship Specialty Start Date End Date Reg Laboy MD [address] [place] [address] [place] [address] PCP - General Internal Medicine 06/03/16 Edwardo Yin MD [address] [place] [address] [place] [address] [email or web address] Splicer Cardiology 06/22/16 documented as of this encounter Additional Source Comments The information contained in this document represents components of the legal health record. It is not the complete legal health record.[facility]
--- OUTSIDE RECORDS SUMMARY | 2025-03-13 09:36 | XMS_ITS | Clinical Summary ---
Author Organization [facility] Address [address] [address] Phone Care Team Providers Care World Geography Teacher Name Role Phone Reg Laboy MD Primary Care Provider [phone] Edwardo Yin MD Unavailable [phone] Allergies Active Allergy Reactions Criticality Noted [...] (PRINIVIL,ZESTRIL ) 40 MG tabletIndications :Atherosclerosis of [place] coronary artery of [place] heart without angina pectoris TAKE ONE TABLET [...] swelling of knee, left 02/06/2019 Atherosclerosis of [place] co ronary artery of [place] heart without angina pectoris 05/17/2017 Overview (05/17/2017): [...] generally active. Follow-up in 6 months with missile and missile checkout technician. Assessment & Plan (07/10/2024 9:36 AM EST): [...] profile checked at his primary care[facility] to [facility]. He will remain on atorvastatin 80 mg [...] gets his labs through PCP office at [place]. Trying to follow a low-sodium diet and [...] Description 01/15/2025 9:30 AM EDT Office Visit [facility] [address] Floor, [address] [place] [address] Vi Jones PA-C Atherosclerosis of [place] coronary artery of [place] heart without angina pectoris (Primary Dx); Primary hypertension; Pure hypercholesterolemia; Mitral valve insufficiency, unspecified etiology; Bradycardia from Last 3 Months Immunizations Immunization Administration [...] Description 07/18/2025 8:40 AM EST Office Visit [facility] [address] [place] [address] 3rd Floor, [address] [place] [address] Edwardo Garcia MD 22 [facility], [address] [address] Health Maintenance Due Date Last Done Comments Adult Td,Tdap Booster 1944 DEPRESSION SCREENING 1956 ZOSTER VACCINES (1 of 2) 1994 RSV VACCINE (1 - 1-dose 75+ series) 2019 PNEUMOCOCCAL VACCINES (50+ years) (2 of 2 - PCV) 11/09/2019 11/08/2018 CREATININE LEVEL 11/14/2020 11/15/2019, 03/2019, 07/05/2018, Additional history exists POTASSIUM LEVEL 11/14/2020 11/15/2019, 04/30, 07/05/2018, Additional history exists INFLUENZA VACCINE (#1) 2024 3, 04/21/2022, 04/08/2021, Additional history exists COVID-19 VACCINE ( season) 2025 12/05/2021, 06/24/2021, 07/30/2020, Additional history exists BLOOD PRESSURE 07/18/2025 01/15/2025 HEPATITIS A VACCINES Aged Out No [...] EDT) SODIUM 139 133 - 146 mmol/L [facility] CHLORIDE 104 96 - 108 mmol/L [facility] POTASSIUM 4.6 3.3 - 5.1 mmol/L [facility] CO2 25 21 - 35 mmol/L [facility] BUN 19 6 - 19 mg/dL [facility] CREATININE 0.90 0.5 - 1.5 mg/dL [facility] GLUCOSE 103(H) 70 - 99 mg/dL [facility] CALCIUM 9.4 8.4 - 10.3 mg/dL [facility] EGFR 83 >59 mL/min/1.7 3m2 [facility] Comment:If patient is black, multiply result by 1.159. Estimated glomerular filtration rate calculated using the CKD-EPI equation. ANION GAP 15 10 - 20 mmol/L [facility] Blood 11/15/2019 9:14 AM EDT 11/15/2019 9:17 AM EDT us Edwardo Yin MD LAB BLOOD ORDERABLES Final Resu lt [facility] [address] [place] [address] from Last 3 Months or Most Recently Relevant to Health Maintenance Insurance MEDICARE PART A & B [facility] MEDEX SUPPLEMENT MEDICARE PART A & B [employer] MEDEX SUPPLEMENT MEDICARE PART A & B [employer] MEDEX SUPPLEMENT MEDICARE PART A & B [employer] MEDEX SUPPLEMENT MEDICARE PART A & B [employer] MEDEX SUPPLEMENT MEDICARE PART A & B Member Subscriber Plan / Payer (Ef fective 2009-Present) Name:Radha Stevenson Daniel Member ID:[id number] Relation to Subscriber:Self Name:OlindaRadha maki Subscriber ID:[id number] Payer ID:[id number] Group ID:Not on file Type:Medicare Address: [employer] [facility].[address] [address] [facility] MEDEX SUPPLEMENT MEDICARE PART A & B [facility] [employer] [facility] [employer] MEDEX SUPPLEMENT MEDICARE PART A & B [employer] MEDEX SUPPLEMENT MEDICARE PART A & B [employer] [facility] [employer] MEDEX SUPPLEMENT Care Teams World Geography Teacher Relationship Specialty Start Date End Date Reg Laboy MD [address] [place] [address] [place] [address] PCP - General Internal Medicine 06/03/16 Edwardo Yin MD [address] [place] [address] [place] [address] [email or web address] Labor Camp Manager Cardiology 06/22/16 Additional Source Comments The information contained in this document represents components of the legal health record. It is not the complete legal health record.[facility]
--- OUTSIDE RECORDS SUMMARY | 2025-03-13 09:36 | XMS_ITS | Encounter Summary ---
Author Organization [facility] Address [address] [facility] [address] [place] [address] Phone Care Team Providers Care Account Manager Education Name Role Phone Reg Laboy MD Primary Care Provider [phone] Edwardo Yin MD Unavailable [phone] Encounter Details Date Type Department Care Team (Latest Contact Info) Description 06/18/2017 Transcribe Orders [facility] [address] [place] [address] [place] [address] Reg Laboy MD [address] [place] [address] [address] Atherosclerosis of tanacross coronary artery of tanacross heart without angina pectoris (Primary Dx); Pure [...] Description 07/18/2025 8:40 AM EST Office Visit [facility] [address] [place] [address] Dr 3rd Floor, [address] [place] [address] Edwardo Garcia MD 22 [facility], [address] [place] [address] [id number] [email or web address] documented as of this encounter Procedures Procedure Name Priority Date/Time Associated Diagnosis Comments COMPREHENSIVE METABOLIC PANEL Routine 06/18/2017 8:30 AM EST Atherosclerosis of tanac[place] coronary artery of tanacross heart without angina pectoris Pure hypercholesterolem ia Chronic kidney disease, stage III (moderate) Severely overweight TSH WITH REFLEX Routine 06/18/2017 8:30 AM EST Atherosclerosis of tanac[place] coronary artery of tanac[place] heart without angina pectoris Pure hypercholesterolem ia Chronic kidney disease, stage III (moderate) Severely overweight 25-OH VITAMIN D Routine 06/18/2017 8:30 AM EST Atherosclerosis of [place] coronary artery of tanacross heart without angina pectoris Pure hypercholesterolem ia Chronic kidney disease, stage III (moderate) Severely overweight URINALYSIS Routine 06/18/2017 8:30 AM EST Atherosclerosis of tanacross coronary artery of tanacross heart without angina pectoris Pure hypercholesterolem ia Chronic kidney disease, stage III (moderate) Severely overweight CBC AND DIFFERENTIAL Routine 06/18/2017 8:30 AM EST Atherosclerosis of tan[place] coronary artery of tanacross heart without angina pectoris Pure hypercholesterolem ia Chronic kidney disease, stage III (moderate) Severely overweight LIPID PANEL Routine 06/18/2017 8:30 AM EST Atherosclerosis of tanac[place] coronary artery of tanacross heart without angina pectoris Pure hypercholesterolem ia Chronic kidney disease, stage III (moderate) Severely overweight documented in this encounter Results * 25-OH vitamin D (06/18/2017 8:30 AM EST) 25 OH VIT D (TOTAL) 37 30 - 1,000 ng/mL [facility] Blood 06/18/2017 8:30 AM EST 06/18/2017 8:33 AM EST us Reg Laboy MD LAB BLOOD ORDERABLES Julia l Result [facility] [address] [place] [address] * Urinalysis (06/18/2017 8:30 AM EST) COLOR Yellow Yellow [facility] CLARITY Clear [facility] GLUCOSE Negative Negative [facility] BILI Negative Negative [facility] KETONES Negative Negative [facility] SPECIFIC GRAVITY 1.020 1.005 - 1.030 [facility] BLOOD Negative Negative [facility] PH 6.5 5.0 - 8.0 [facility] Protein-UA Negative Negative [facility] NITRITE Negative Negative [facility] Leukocyte esterase, ur Negative Negative [facility] Urine (Urine) 06/18/2017 8:3 0 AM EST 06/18/2017 8:35 AM EST Reg Laboy MD URINE ORDERABLES Final Re sult Performing Organization Address City/[facility]/ZIP Co de Phone Number [address] [address] * TSH with reflex (06/18/2017 8:30 AM EST) TSH 2.62 0.27 - 4.20 uIU/mL [facility] Blood 06/18/2017 8:30 AM EST 06/18/2017 8:33 AM EST us Reg Laboy MD LAB BLOOD ORDERABLES Julia l Result Performing Organization Address City/[facility]/ZIP Co de Phone Number [address] [address] * CBC and differential (06/18/2017 8:30 AM EST) WBC 7.02 3.40 - 11.20 K/uL [facility] RBC 4.90 4.50 - 5.50 M/uL [facility] HGB 14.9 13.0 - 17.0 g/dL [facility] HCT 45.1 40.0 - 51.0 % [facility] PLT 219 130 - 400 K/uL [facility] MCV 92.0 79.0 - 98.0 fL [facility] MCH 30.4 27.0 - 34.8 pg [facility] MCHC 33.0 31.5 - 36.0 g/dL [facility] RDW 13.9 10.8 - 14.6 % [facility] MPV 10.0 9.4 - 12.4 fl [facility] NRBC 0.00 /100 WBCs [facility] ABSOLUTE NRBC 0.00 K/uL [facility] DIFF METHOD Auto [facility] NEUTS 61.4 45.30 - 77.70 % [facility] LYMPHS 27.1 12.30 - 39.70 % [facility] MONOS 7.8 4.10 - 12.80 % [facility] EOS 3.0 0 - 7.2 % [facility] BASOS 0.6 0 - 2.80 % [facility] Granulocytes, immature (%) 0.1 0.0 - 0.9 % [facility] ABSOLUTE NEUTS 4.31 1.40 - 7.70 K/uL [facility] ABSOLUTE LYMPHS 1.90 0.60 - 3.20 K/uL [facility] ABSOLUTE MONOS 0.55 0.11 - 0.59 K/uL [facility] ABSOLUTE EOS 0.21 0.01 - 0.50 K/uL [facility] ABSOLUTE BASOS 0.04 0.00 - 0.08 K/uL [facility] Granulocytes, immature 0.01 0.00 - 0.05 K/uL [facility] Blood 06/18/2017 8:30 AM EST 06/18/2017 8:33 AM EST us Reg Laboy MD LAB BLOOD ORDERABLES Julia l Result [facility] [address] [place] [address] * (ABNORMAL) Lipid panel (06/18/2017 8:30 AM EST) HDL 39 mg/dL [facility] Comment: Interpretation: Risk Level Males Decreased >45 mg/dL Average 40-45 mg/dL Increased <40 mg/dL CHOLESTEROL 112 0 - 240 mg/dL [facility] TRIGLYCERIDES 76 30 - 160 mg/dL [facility] LDL 58 50 - 129 mg/dL [facility] Comment: LDL levels in terms of risk for coronary heart disease: <100 mg/dL: Optimal 100-129 mg/dL: Near or above optimal 130-159 mg/dL: Borderline high 160-189 mg/dL: High >190 mg/dL: Very High CARDIAC RISK RATIO 2.9(L) 3.4 - 5.0 C [facility] Blood 06/18/2017 8:30 AM EST 06/18/2017 8:33 AM EST us Reg Laboy MD LAB BLOOD ORDERABLES Julia kc Result [facility] [address] [place] [address] * (ABNORMAL) Comprehensive metabolic panel (06/18/2017 8:30 AM EST) SODIUM 139 133 - 146 mmol/L [facility] POTASSIUM 4.1 3.3 - 5.1 mmol/L [facility] CHLORIDE 103 96 - 108 mmol/L [facility] CO2 28 21 - 35 mmol/L [facility] BUN 21(H) 6 - 19 mg/dL [facility] CREATININE 1.10 0.5 - 1.5 mg/dL [facility] GLUCOSE 105(H) 70 - 99 mg/dL [facility] ALBUMIN 4.1 3.9 - 4.8 g/dL [facility] TOTAL PROTEIN 7.2 6.5 - 8.0 g/dL [facility] CALCIUM 8.9 8.4 - 10.3 mg/dL [facility] ALKALINE PHOSPHATASE 69 39 - 117 U/L [facility] TOTAL BILIRUBIN 1.0 0 - 1.2 mg/dL [facility] AST 19 0 - 37 U/L [facility] ALT 33 0 - 40 U/L [facility] GLOBULIN 3.1 1 - 4.8 g/dL [facility] EGFR >60 mL/min/1.7 3m2 [facility] Comment:Abnormal if <60. If patient is -Maltese, multiply the result by 1.21. ANION GAP 12 10 - 20 mmol/L [facility] Blood 06/18/2017 8:30 AM EST 06/18/2017 8:33 AM EST Reg Laboy MD LAB BLOOD ORDERABLES Julia l Result [address] [address] documented in this encounter Visit Diagnoses Diagnosis Atherosclerosis of tanac[place] coronary artery of tanac[place] heart without angina pectoris- Primary Pure hypercholesterolemia Chronic kidney disease, stage III (moderate) Chronic kidney disease, Stage III (moderate) Severely overweight Morbid obesity documented in this encounter Care Teams Account Manager Education Relationship Specialty Start Date End Date Reg Laboy MD [address] [place] [address] [place] [address] PCP - General Internal Medicine 06/03/16 Edwardo Yin MD [address] [place] [address] [place] [address] [email or web address] Cardiology 06/22/16 documented as of this encounter Additional Source Comments The information contained in this document represents components of the legal health record. It is not the complete legal health record.[facility]
--- OUTSIDE RECORDS SUMMARY | 2025-03-13 09:36 | XMS_ITS | Encounter Summary ---
Author Organization [facility] Address [address] [facility] [address] [place] [address] Phone Care Team Providers Care Art Sales Consultant Name Role Phone Reg Laboy MD Primary Care Provider [phone] Edwardo Yin MD Unavailable Encounter Details Date Type Department Care Team (Latest Contact Info) Description 05/11/2017 Transcribe Orders [facility] [address] [place] [address] Edwardo Yin MD [address] [address] [email or web address] CVD (cardiovascular disease) (Primary Dx) Social [...] Description 07/18/2025 8:40 AM EST Office Visit [facility] [address] [facility] 3rd Floor, [address] [place] [address] Edwardo Garcia MD [address] [address] documented as of this encounter Results * Basic metabolic panel (05/11/2017 9:20 AM EST) SODIUM 141 133 - 146 mmol/L [facility] CHLORIDE 104 96 - 108 mmol/L [facility] POTASSIUM 4.2 3.3 - 5.1 mmol/L [facility] CO2 26 21 - 35 mmol/L [facility] BUN 17 6 - 19 mg/dL [facility] CREATININE 0.90 0.5 - 1.5 mg/dL [facility] GLUCOSE 91 70 - 99 mg/dL [facility] CALCIUM 8.8 8.4 - 10.3 mg/dL [facility] EGFR >60 mL/min/1.7 3m2 [facility] Comment:Abnormal if <60. If patient is -Belarusian, multiply the result by 1.21. ANION GAP 15 10 - 20 mmol/L [facility] Blood 05/11/2017 9:20 AM EST 05/11/2017 9:22 AM EST us Edwardo Yin MD LAB BLOOD ORDERABLES Final Resu lt [facility] [address] [place] [address] * LFTs (hepatic panel) (05/11/2017 9:20 AM EST) ALKALINE PHOSPHATASE 72 39 - 117 U/L [facility] TOTAL BILIRUBIN 0.8 0 - 1.2 mg/dL [facility] DIRECT BILIRUBIN <0.2 0 - 0.3 mg/dL [facility] Bilirubin (Indirect) NOT CALCULATED 0 - 1.5 mg/dL [facility] AST 17 0 - 37 U/L [facility] ALT 31 0 - 40 U/L [facility] TOTAL PROTEIN 6.9 6.5 - 8.0 g/dL [facility] ALBUMIN 4.1 3.9 - 4.8 g/dL [facility] GLOBULIN 2.8 1 - 4.8 g/dL [facility] A/G Ratio 1.46 1.00 - 4.80 RATIO [facility] Blood 05/11/2017 9:20 AM EST 05/11/2017 9:22 AM EST us Edwardo Yin MD LAB BLOOD ORDERABLES Final Resu lt Performing Organization Address [facility]/ZIP Co de Phone Number [address] [address] * (ABNORMAL) Lipid panel (05/11/2017 9:20 AM EST) HDL 33 mg/dL [facility] Comment: Interpretation: Risk Level Males Decreased >45 mg/dL Average 40-45 mg/dL Increased <40 mg/dL CHOLESTEROL 87 0 - 240 mg/dL [facility] TRIGLYCERIDES 70 30 - 160 mg/dL [facility] LDL 40(L) 50 - 129 mg/dL [facility] Comment: LDL levels in terms of risk for coronary heart disease: <100 mg/dL: Optimal 100-129 mg/dL: Near or above optimal 130-159 mg/dL: Borderline high 160-189 mg/dL: High >190 mg/dL: Very High CARDIAC RISK RATIO 2.6(L) 3.4 - 5.0 C [facility] Blood 05/11/2017 9:20 AM EST 05/11/2017 9:22 AM EST us Edwardo Yin MD LAB BLOOD ORDERABLES Final Resu lt Performing Organization Address [facility] Co de Phone Number [address] [address] documented in this encounter Visit Diagnoses Diagnosis CVD (cardiovascular disease)- Primary Unspecified cardiovascular disease documented in this encounter Care Teams Art Sales Consultant Relationship Specialty Start Date End Date Reg Laboy MD [address] [place] [address] [place] [address] PCP - General Internal Medicine 06/03/16 Edwardo Yin MD [address] [place] [address] [place] [address] [email or web address] Cardiology 06/22/16 documented as of this encounter Additional Source Comments The information contained in this document represents components of the legal health record. It is not the complete legal health record.[facility]
--- OUTSIDE RECORDS SUMMARY | 2025-03-13 09:36 | XMS_ITS | Encounter Summary ---
Author Organization [facility] Address [address] [facility] [address] [place] [address] Phone Care Team Providers Care Windows Server Administrator Name Role Phone Reg Laboy MD Primary Care Provider [phone] Edwardo Yin MD Unavailable [phone] Encounter Details Date Type Department Care Team (Late st Contact Info) Description 04/07/2021 Procedure Pass Echo Lab [address] [place] [address] Social History Tobacco Use Types Packs/Day Years [...] Description 07/18/2025 8:40 AM EST Office Visit [facility] [address] [place] [address] 3rd Floor, [address] [place] [address] Edwardo Garcia MD 22 [facility], [address] [address] [email or web address] documented as of this encounter Visit Diagnoses Not on filedocumented in this encounter Care Teams Windows Server Administrator Relationship Specialty Start Date End Date Reg Laboy MD [address] [place] [address] [place] [address] PCP - General Internal Medicine 06/03/16 Edwardo Yin MD [address] [place] [address] [place] [address] [email or web address] Crib Attendant Cardiology 06/22/16 documented as of this encounter Additional Source Comments The information contained in this document represents components of the legal health record. It is not the complete legal health record.[facility]
--- OUTSIDE RECORDS SUMMARY | 2025-03-13 09:36 | XMS_ITS | Encounter Summary ---
Author Organization [facility] Address [address] [address] Phone Care Team Providers Care Division Service Manager Name Role Phone Reg Laboy MD Primary Care Provider [phone] Edwardo Yin MD Unavailable [phone] Encounter Details Date Type Department Care Team (Late st Contact Info) Description 03/02/2023 Procedure Pass Echo Lab [address] [place] [address] Social History Tobacco Use Types Packs/Day Years [...] Description 07/18/2025 8:40 AM EST Office Visit [facility] [address] [place] [address] 3rd Floor, [address] [place] [address] Edwardo Garcia MD 22 [facility], [address] [place] [address] [email or web address] documented as of this encounter Visit Diagnoses Not on filedocumented in this encounter Care Teams Division Service Manager Relationship Specialty Start Date End Date Reg Laboy MD [address] [place] [address] Dr [address] [place] [address] PCP - General Internal Medicine 06/03/16 Edwardo Yin MD [address] [place] [address] Dr [address] [place] [address] [email or web address] Cardiology 06/22/16 documented as of this encounter Additional Source Comments The information contained in this document represents components of the legal health record. It is not the complete legal health record.[facility]
== END 2025-03-13 09:13 | disposition home or self-care (01) ==
LOC: HO.HMCH 09:00
PROVIDERS: PCP Internal Medicine; Visit Provider Internal Medicine
DX: Z23 Encounter for immunization (principal)

== ENCOUNTER → 2025-03-13 08:59 | Outpatient (BNVA) | payer MEDICARE, SELFPAY | PROVIDERS: PCP Internal Medicine; Visit Provider Internal Medicine | DX: Z23 Encounter for immunization (principal) | CPT/HCPCS: 90471; 90656 ==